=== PATIENT | male | born 1940 | race Caucasian/White ===

== ENCOUNTER 2016-06-10 11:27 | Outpatient (CLI) | payer MEDICARE, BC, OTHER ==
[~2016-06-10 11:27] MED LIST: ACETAMINOPHEN TAB 650MG DOSE (2X325MG) PO SCH; diphenhydrAMINE 25 MG CAP PO SCH
[2016-06-10] MEDS ORDERED: HYZA50TA2 PO (12:21)
[2016-06-10] MEDS ORDERED: GLUC1CAP10 PO (12:21)
[2016-06-10] MEDS ORDERED: MULT1TAB18 PO (12:21)
[2016-06-10] MEDS ORDERED: POTA540T PO (12:21)
[2016-06-10] MEDS ORDERED: SIMV40TA2 PO (12:21)
== END 2016-06-10 18:44 ==
LOC: M OPCLIPED 11:27 → M OPCLI4PR 11:27 → M PED 11:29 → M OPCLI4PR 18:44
PROVIDERS: ATTEND Internal Medicine Medical Oncology
DX: D46.21 Refractory anemia with excess of blasts 1 (principal)
CPT/HCPCS: 36430; 86850; 86900; 86901; 86920; P9016

== ENCOUNTER → 2016-06-27 | Outpatient (REF) | payer MEDICARE, OTHER ==
[~2016-06-27] MED LIST changes: -ACETAMINOPHEN TAB 650MG DOSE (2X325MG) PO SCH; +GLUC1CAP10 PO; +HYZA50TA2 PO; +MULT1TAB18 PO; +POTA540T PO; +SIMV40TA2 PO; -diphenhydrAMINE 25 MG CAP PO SCH
[2016-06-28 10:22] LABS: ERYTHROPOIETIN 181.6 mIU/mL (2.6-18.5)
== END ==
LOC: M LAB REF 12:57
PROVIDERS: ATTEND Internal Medicine Medical Oncology
DX: D46.9 Myelodysplastic syndrome, unspecified (principal)

== ENCOUNTER → 2016-07-11 | Outpatient (REF) | payer MEDICARE, OTHER | LOC: M LAB REF 11:27 | PROVIDERS: ATTEND Internal Medicine Medical Oncology | DX: D46.9 Myelodysplastic syndrome, unspecified (principal) | CPT/HCPCS: 86850; 86920; G0463 ==

== ENCOUNTER 2016-07-13 11:29 | Outpatient (CLI) | payer MEDICARE, BC, OTHER ==
[~2016-07-13] VITALS: Ht 152.4 cm; Wt 87.5 kg
[~2016-07-13 11:29] MED LIST changes: +ACETAMINOPHEN TAB 650MG DOSE (2X325MG) PO SCH; +diphenhydrAMINE 25 MG CAP PO SCH
== END 2016-07-13 16:30 | disposition home or self-care (01) ==
LOC: M INFU 11:29
PROVIDERS: ATTEND Internal Medicine Medical Oncology
DX: D46.9 Myelodysplastic syndrome, unspecified (principal)
CPT/HCPCS: 36430; P9016

== ENCOUNTER → 2016-07-18 | Outpatient (REF) | payer MEDICARE, OTHER ==
[~2016-07-18] MED LIST changes: -ACETAMINOPHEN TAB 650MG DOSE (2X325MG) PO SCH; -diphenhydrAMINE 25 MG CAP PO SCH
[2016-07-18 13:27] LABS: INR 1.09
[2016-07-18 13:29] LABS: EOS % 0.5 % (0.0-3.0); LARGE UNSTAINED CELL # 0.1 K/mm3 (0.0-0.4); LARGE UNSTAINED CELL % 5.9 % (0.0-4.0); LYMPH # 1.3 K/mm3 (1.5-4.5); LYMPH % 48.8 % (24.0-44.0); MEAN CORPUSCULAR HEMOGLOBIN 32.4 pg (27.0-33.0); MEAN CORPUSCULAR HGB CONC 32.7 g/dl (32.0-36.5); MEAN CORPUSCULAR VOLUME 99.2 fl (80.0-96.0); MONO # 0.1 K/mm3 (0.0-0.8); MONO % 3.7 % (0.0-5.0); NEUTROPHILS % 41.1 % (36.0-66.0); RED CELL DISTRIBUTION WIDTH 16.6 % (11.5-14.5); WHITE BLOOD COUNT 2.3 K/mm3 (4.0-10.0)
[2016-07-18 13:44] LABS: ALBUMIN 3.8 GM/DL (3.2-5.2); ALBUMIN/GLOBULIN RATIO 1.27 (1.00-1.93); ALKALINE PHOSPHATASE 62 U/L (45-117); ALT/SGPT 26 U/L (12-78); ANION GAP 11 MEQ/L (8-16); AST/SGOT 18 U/L (15-37); BILIRUBIN,TOTAL 0.8 MG/DL (0.2-1.0); BLOOD UREA NITROGEN 24 MG/DL (7-18); CALCIUM LEVEL 8.6 MG/DL (8.8-10.2); CARBON DIOXIDE LEVEL 27 MEQ/L (21-32); CHLORIDE LEVEL 101 MEQ/L (98-107); CHOLESTEROL LEVEL 96 MG/DL (<200); CREATININE FOR GFR 1.16 MG/DL (0.70-1.30); FREE T4 1.09 NG/DL (0.76-1.46); GLOMERULAR FILTRATION RATE > 60.0 (>42); GLUCOSE, FASTING 96 MG/DL (83-110); POTASSIUM SERUM 3.3 MEQ/L (3.5-5.1); SODIUM LEVEL 139 MEQ/L (136-145); TOTAL PROTEIN 6.8 GM/DL (6.4-8.2); TRIGLYCERIDES LEVEL 51 MG/DL (<150)
[2016-07-18 13:55] LABS: PLATELET COUNT, AUTOMATED 57 k/mm3 (150-450)
[2016-07-18 16:48] LABS: VITAMIN B12 LEVEL > 2000 PG/ML (247-911)
[2016-07-20 14:13] LABS: HEPATITIS C QUANTITATION HCV Not Detected IU/mL (.)
== END ==
LOC: M SFHCPLAZ 09:08
PROVIDERS: ATTEND Physician Assistant Medical
DX: I10 Essential (primary) hypertension (principal); E78.5 Hyperlipidemia, unspecified; Z20.5 Contact with and (suspected) exposure to viral hepatitis; N40.1 Benign prostatic hyperplasia with lower urinary tract symptoms; R31.29 Other microscopic hematuria; G62.9 Polyneuropathy, unspecified
CPT/HCPCS: 36415; 80053; 80061; 81001; 82607; 84439; 84443; 85025; 85610; 85730; 87522; G0103

== ENCOUNTER → 2016-08-02 | Outpatient (REF) | payer MEDICARE, OTHER ==
[2016-08-02 11:07] LABS: ANION GAP 9 MEQ/L (8-16); BLOOD UREA NITROGEN 23 MG/DL (7-18); CARBON DIOXIDE LEVEL 28 MEQ/L (21-32); CHLORIDE LEVEL 102 MEQ/L (98-107); GLOMERULAR FILTRATION RATE > 60.0 (>42); GLUCOSE, FASTING 106 MG/DL (83-110); POTASSIUM SERUM 3.7 MEQ/L (3.5-5.1); SODIUM LEVEL 139 MEQ/L (136-145)
== END ==
LOC: M SFHCPLAZ 08:58
PROVIDERS: ATTEND Physician Assistant Medical
DX: E87.6 Hypokalemia (principal)
CPT/HCPCS: 36415; 80048; G0463

== ENCOUNTER → 2016-08-08 | Outpatient (REF) | payer MEDICARE, BC, OTHER | LOC: M LAB REF 12:00 | PROVIDERS: ATTEND Internal Medicine Medical Oncology | DX: D46.9 Myelodysplastic syndrome, unspecified (principal) ==

== ENCOUNTER 2016-08-09 10:12 | Outpatient (CLI) | payer MEDICARE, BC, OTHER ==
[~2016-08-09] VITALS: Ht 182.9 cm; Wt 87.5 kg
[~2016-08-09 10:12] MED LIST changes: +ACETAMINOPHEN TAB 650MG DOSE (2X325MG) PO SCH; +diphenhydrAMINE 25 MG CAP PO SCH
== END 2016-08-09 15:05 | disposition home or self-care (01) ==
LOC: M INFU 10:12
PROVIDERS: ATTEND Internal Medicine Medical Oncology
DX: D46.9 Myelodysplastic syndrome, unspecified (principal)
CPT/HCPCS: 36430; P9016

== ENCOUNTER → 2016-08-15 | Outpatient (REF) | payer MEDICARE, OTHER ==
[~2016-08-15] MED LIST changes: -ACETAMINOPHEN TAB 650MG DOSE (2X325MG) PO SCH; -diphenhydrAMINE 25 MG CAP PO SCH
== END ==
LOC: M LAB REF 13:10
PROVIDERS: ATTEND Internal Medicine Medical Oncology
DX: D64.9 Anemia, unspecified (principal)

== ENCOUNTER 2016-08-16 07:51 | Outpatient (CLI) | payer MEDICARE, BC, OTHER ==
[~2016-08-16 07:51] MED LIST changes: +ACETAMINOPHEN TAB 650MG DOSE (2X325MG) PO SCH; +diphenhydrAMINE 25 MG CAP PO SCH
== END 2016-08-16 10:45 | disposition home or self-care (01) ==
LOC: M INFU 07:51
PROVIDERS: ATTEND Internal Medicine Medical Oncology
DX: D64.9 Anemia, unspecified (principal)
CPT/HCPCS: 36430; P9016

== ENCOUNTER → 2016-08-29 | Outpatient (REF) | payer MEDICARE, BC, OTHER ==
[~2016-08-29] MED LIST changes: -ACETAMINOPHEN TAB 650MG DOSE (2X325MG) PO SCH; -diphenhydrAMINE 25 MG CAP PO SCH
== END ==
LOC: M LAB REF 12:26
PROVIDERS: ATTEND Internal Medicine Medical Oncology
DX: D64.9 Anemia, unspecified (principal)

== ENCOUNTER 2016-08-30 08:14 | Outpatient (CLI) | payer MEDICARE, BC, OTHER ==
[~2016-08-30] VITALS: Ht 182.9 cm; Wt 87.5 kg
[2016-08-30] MEDS ORDERED: ACETAMINOPHEN TAB 650MG DOSE (2X325MG) PO ONE (08:30)
[2016-08-30] MEDS ORDERED: diphenhydrAMINE 25 MG CAP PO ONE (08:30)
== END 2016-08-30 13:30 | disposition home or self-care (01) ==
LOC: M INFU 08:14
PROVIDERS: ATTEND Internal Medicine Medical Oncology
DX: D64.9 Anemia, unspecified (principal)
CPT/HCPCS: 36430; P9016

== ENCOUNTER 2016-09-14 12:54 | Outpatient (CLI) | payer MEDICARE, BC, OTHER ==
[~2016-09-14] VITALS: Ht 180.3 cm; Wt 191.7 kg
[2016-09-14 13:00] VITALS: BP 146/72
[2016-09-14] MEDS ORDERED: ACETAMINOPHEN TAB 650MG DOSE (2X325MG) PO ONE (14:00)
[2016-09-14] MEDS ORDERED: diphenhydrAMINE 25 MG CAP PO ONE (14:00)
[2016-09-14 20:10] VITALS: BP 106/61
== END 2016-09-14 20:34 | disposition home or self-care (01) ==
LOC: M OPCLI4PR 12:54 → M MSPAV 12:59 → M OPCLI4PR 20:34
PROVIDERS: ATTEND Internal Medicine Medical Oncology
DX: D64.9 Anemia, unspecified (principal)
CPT/HCPCS: 36430; 86850; 86900; 86901; 86920; P9016

== ENCOUNTER → 2016-09-26 | Outpatient (REF) | payer MEDICARE, BC, OTHER | LOC: M LAB REF 14:33 | PROVIDERS: ATTEND Internal Medicine Medical Oncology | DX: D64.9 Anemia, unspecified (principal) ==

== ENCOUNTER 2016-09-27 11:14 | Outpatient (CLI) | payer MEDICARE, BC, OTHER ==
[~2016-09-27 11:14] MED LIST changes: +ACETAMINOPHEN TAB 650MG DOSE (2X325MG) PO SCH; +diphenhydrAMINE 25 MG CAP PO SCH
== END 2016-09-27 15:40 | disposition home or self-care (01) ==
LOC: M INFU 11:14
PROVIDERS: ATTEND Internal Medicine Medical Oncology
DX: D64.9 Anemia, unspecified (principal)
CPT/HCPCS: 36430; P9016

== ENCOUNTER 2016-10-11 10:18 | Outpatient (CLI) | payer MEDICARE, BC, OTHER ==
[~2016-10-11] VITALS: Ht 154.9 cm; Wt 87.5 kg
[2016-10-11] MEDS ORDERED: FUROSEMIDE 20 MG/2 ML VIAL (J1940) IV SCH (10:45)
[2016-10-11] MEDS ORDERED: ACETAMINOPHEN TAB 650MG DOSE (2X325MG) PO ONE (10:45)
[2016-10-11] MEDS ORDERED: diphenhydrAMINE 50 MG CAP PO ONE (10:45)
== END 2016-10-11 16:15 | disposition home or self-care (01) ==
LOC: M INFU 10:18
PROVIDERS: ATTEND Internal Medicine Medical Oncology
DX: D46.9 Myelodysplastic syndrome, unspecified (principal)
CPT/HCPCS: 36430; 82728; 83550; 86850; 86900; 86901; 86920; P9016

== ENCOUNTER → 2016-10-11 | Outpatient (REF) | payer MEDICARE, OTHER ==
[~2016-10-11] MED LIST changes: -ACETAMINOPHEN TAB 650MG DOSE (2X325MG) PO SCH; -diphenhydrAMINE 25 MG CAP PO SCH
[2016-10-11 13:28] LABS: PERCENT SATURATION 39.7 % (19.7-37.4)
== END ==
LOC: M LAB REF 12:24
PROVIDERS: ATTEND Internal Medicine Medical Oncology
DX: D46.9 Myelodysplastic syndrome, unspecified (principal)

== ENCOUNTER 2016-10-12 08:40 | Outpatient (CLI) | payer MEDICARE, BC, OTHER ==
[~2016-10-12] VITALS: Ht 182.9 cm; Wt 87.5 kg
[~2016-10-12 08:40] MED LIST changes: +ACETAMINOPHEN TAB 650MG DOSE (2X325MG) PO ONE; +FUROSEMIDE 20 MG/2 ML VIAL (J1940) IV ONE; +diphenhydrAMINE 50 MG CAP PO ONE
== END 2016-10-12 11:15 | disposition home or self-care (01) ==
LOC: M INFU 08:40
PROVIDERS: ATTEND Internal Medicine Medical Oncology
DX: D46.9 Myelodysplastic syndrome, unspecified (principal)
CPT/HCPCS: 36430; P9016

== ENCOUNTER 2016-10-18 11:09 | Outpatient (CLI) | payer MEDICARE, BC, OTHER ==
[~2016-10-18] VITALS: Ht 182.9 cm; Wt 87.5 kg
[~2016-10-18 11:09] MED LIST changes: -ACETAMINOPHEN TAB 650MG DOSE (2X325MG) PO ONE; -FUROSEMIDE 20 MG/2 ML VIAL (J1940) IV ONE; -diphenhydrAMINE 50 MG CAP PO ONE
[2016-10-18] MEDS ORDERED: ACETAMINOPHEN TAB 650MG DOSE (2X325MG) PO ONE (11:30)
[2016-10-18] MEDS ORDERED: diphenhydrAMINE 25 MG CAP PO ONE (11:30)
== END 2016-10-18 17:00 | disposition home or self-care (01) ==
LOC: M INFU 11:09
PROVIDERS: ATTEND Internal Medicine Medical Oncology
DX: D64.9 Anemia, unspecified (principal)
CPT/HCPCS: 36430; 86850; 86900; 86901; 86920; P9016; P9034

== ENCOUNTER 2016-10-25 09:48 | Outpatient (CLI) | payer MEDICARE, BC, OTHER ==
[2016-10-25] MEDS ORDERED: diphenhydrAMINE 25 MG CAP PO ONE ×2 (10:15→17:15)
[2016-10-25] MEDS ORDERED: FUROSEMIDE 20 MG/2 ML VIAL (J1940) IV ONE (10:15)
[2016-10-25] MEDS ORDERED: ACETAMINOPHEN TAB 650MG DOSE (2X325MG) PO ONE (10:15)
== END 2016-10-25 18:10 | disposition home or self-care (01) ==
LOC: M INFU 09:48
PROVIDERS: ATTEND Internal Medicine Medical Oncology
DX: D64.9 Anemia, unspecified (principal)
CPT/HCPCS: 36430; 86850; 86900; 86901; 86920; 96375; J1940; P9016; P9034

== ENCOUNTER 2016-10-26 08:22 | Outpatient (CLI) | payer MEDICARE, BC, OTHER ==
[2016-10-26] MEDS ORDERED: diphenhydrAMINE 25 MG CAP PO ONE ×2 (08:45→11:00)
[2016-10-26] MEDS ORDERED: ACETAMINOPHEN TAB 650MG DOSE (2X325MG) PO ONE (08:45)
[2016-10-26] MEDS ORDERED: FUROSEMIDE 20 MG/2 ML VIAL (J1940) IV ONE (10:00)
== END 2016-10-26 11:15 | disposition home or self-care (01) ==
LOC: M INFU 08:22
PROVIDERS: ATTEND Internal Medicine Medical Oncology
DX: D64.9 Anemia, unspecified (principal)
CPT/HCPCS: 36430; P9034

== ENCOUNTER 2016-11-02 10:21 | Outpatient (CLI) | payer MEDICARE, BC, OTHER ==
[~2016-11-02] VITALS: Ht 182.9 cm; Wt 87.5 kg
[2016-11-02] MEDS ORDERED: diphenhydrAMINE 25 MG CAP PO ONE (10:30)
[2016-11-02] MEDS ORDERED: ACETAMINOPHEN TAB 650MG DOSE (2X325MG) PO ONE (10:30)
== END 2016-11-02 18:10 | disposition home or self-care (01) ==
LOC: M INFU 10:21
PROVIDERS: ATTEND Internal Medicine Medical Oncology
DX: D46.9 Myelodysplastic syndrome, unspecified (principal)
CPT/HCPCS: 36430; P9034

== ENCOUNTER 2016-11-04 10:00 | Outpatient (CLI) | payer MEDICARE, BC, OTHER ==
[~2016-11-04] VITALS: Ht 182.9 cm; Wt 87.5 kg
[~2016-11-04 10:00] MED LIST changes: +ACETAMINOPHEN TAB 650MG DOSE (2X325MG) PO SCH; +diphenhydrAMINE 25 MG CAP PO SCH
== END 2016-11-04 15:45 | disposition home or self-care (01) ==
LOC: M INFU 10:00
PROVIDERS: ATTEND Internal Medicine Medical Oncology
DX: D46.9 Myelodysplastic syndrome, unspecified (principal)
CPT/HCPCS: 36430; 84443; 86850; 86900; 86901; 86920; P9016

== ENCOUNTER → 2016-11-04 | Outpatient (REF) | payer MEDICARE, OTHER | LOC: M LAB REF 12:47 | PROVIDERS: ATTEND Internal Medicine Medical Oncology | DX: D46.9 Myelodysplastic syndrome, unspecified (principal) ==

== ENCOUNTER 2016-11-11 10:50 | Outpatient (CLI) | payer MEDICARE, BC, OTHER ==
[~2016-11-11] VITALS: Ht 182.9 cm; Wt 87.5 kg
== END 2016-11-11 17:30 | disposition home or self-care (01) ==
LOC: M INFU 10:50
PROVIDERS: ATTEND Internal Medicine Medical Oncology
DX: D46.9 Myelodysplastic syndrome, unspecified (principal)
CPT/HCPCS: 36430; 86850; 86900; 86901; 86920; P9016; P9036

== ENCOUNTER 2016-11-21 09:22 | Outpatient (CLI) | payer MEDICARE, BC, OTHER ==
[2016-11-21] MEDS ORDERED: diphenhydrAMINE 25 MG CAP PO ONE (16:30)
== END 2016-11-21 17:15 | disposition home or self-care (01) ==
LOC: M INFU 09:22
PROVIDERS: ATTEND Internal Medicine Medical Oncology
DX: D46.9 Myelodysplastic syndrome, unspecified (principal)
CPT/HCPCS: 36415; 36430; 86850; 86880; 86900; 86901; 86920; P9016; P9034

== ENCOUNTER 2016-11-22 09:53 | Outpatient (CLI) | payer MEDICARE, BC, OTHER | END 2016-11-22 12:45 | disposition home or self-care (01) | LOC: M INFU 09:53 | PROVIDERS: ATTEND Internal Medicine Medical Oncology | DX: D46.9 Myelodysplastic syndrome, unspecified (principal); Z87.891 Personal history of nicotine dependence; Z79.899 Other long term (current) drug therapy | CPT/HCPCS: 36430; P9034 ==

== ENCOUNTER 2016-11-25 10:21 | Outpatient (CLI) | payer MEDICARE, BC, OTHER ==
[~2016-11-25 10:21] MED LIST changes: +ACETAMINOPHEN TAB 650MG DOSE (2X325MG) PO SCH; -BENA25CA4 PO; -EXJA500T PO; -JADE1TAB2 PO; -POTA10TAB PO; -PRED20TA PO; -VITMTA PO; +diphenhydrAMINE 25 MG CAP PO SCH
[2016-11-25] MEDS ORDERED: diphenhydrAMINE INJ 50MG/ML VIAL (J1200) IV ONE (15:15)
== END 2016-11-25 17:55 | disposition home or self-care (01) ==
LOC: M INFU 10:21
PROVIDERS: ATTEND Internal Medicine Medical Oncology
DX: D64.9 Anemia, unspecified (principal); Z87.891 Personal history of nicotine dependence; Z79.899 Other long term (current) drug therapy
CPT/HCPCS: 36430; 84443; J1200; P9034

== ENCOUNTER → 2016-11-25 | Outpatient (REF) | payer MEDICARE, OTHER ==
[~2016-11-25] MED LIST changes: -ACETAMINOPHEN TAB 650MG DOSE (2X325MG) PO SCH; +BENA25CA4 PO; +EXJA500T PO; +JADE1TAB2 PO; +POTA10TAB PO; +PRED20TA PO; +VITMTA PO; -diphenhydrAMINE 25 MG CAP PO SCH
== END ==
LOC: M LAB REF 13:21
PROVIDERS: ATTEND Internal Medicine Medical Oncology
DX: D64.9 Anemia, unspecified (principal)

== ENCOUNTER 2016-12-01 09:43 | Outpatient (CLI) | payer MEDICARE, BC, OTHER ==
[~2016-12-01] VITALS: Ht 182.9 cm; Wt 87.5 kg
== END 2016-12-01 15:15 | disposition home or self-care (01) ==
LOC: M INFU 09:43
PROVIDERS: ATTEND Internal Medicine Medical Oncology
DX: D64.9 Anemia, unspecified (principal); D46.9 Myelodysplastic syndrome, unspecified; Z87.891 Personal history of nicotine dependence; Z79.899 Other long term (current) drug therapy
CPT/HCPCS: 36430; 86850; 86900; 86901; 86920; P9016

== ENCOUNTER 2016-12-08 10:08 | Outpatient (CLI) | payer MEDICARE, BC, OTHER ==
[~2016-12-08] VITALS: Ht 182.9 cm; Wt 87.5 kg
[~2016-12-08 10:08] MED LIST changes: +ACETAMINOPHEN TAB 650MG DOSE (2X325MG) PO SCH; -BENA25CA4 PO; -EXJA500T PO; -JADE1TAB2 PO; -POTA10TAB PO; -PRED20TA PO; -VITMTA PO; +diphenhydrAMINE 25 MG CAP PO SCH
[2016-12-08] MEDS ORDERED: dexameTHASONE 20 MG/5 ML VIAL (J1100) IV ONE (10:15)
[2016-12-08] MEDS ORDERED: diphenhydrAMINE INJ 50MG/ML VIAL (J1200) IV ONE (10:30)
[2016-12-08] MEDS ORDERED: diphenhydrAMINE 25 MG CAP PO ONE (15:30)
== END 2016-12-08 18:00 | disposition home or self-care (01) ==
LOC: M INFU 10:08
PROVIDERS: ATTEND Internal Medicine Medical Oncology
DX: D64.9 Anemia, unspecified (principal); Z87.891 Personal history of nicotine dependence; Z79.899 Other long term (current) drug therapy
CPT/HCPCS: 36430; 82728; 83550; 86850; 86900; 86901; 86920; J1100; J1200; P9016; P9036

== ENCOUNTER → 2016-12-08 | Outpatient (REF) | payer MEDICARE, OTHER ==
[~2016-12-08] MED LIST changes: -ACETAMINOPHEN TAB 650MG DOSE (2X325MG) PO SCH; +BENA25CA4 PO; +EXJA500T PO; +JADE1TAB2 PO; +POTA10TAB PO; +PRED20TA PO; +VITMTA PO; -diphenhydrAMINE 25 MG CAP PO SCH
[2016-12-08 14:49] LABS: PERCENT SATURATION 104.1 % (19.7-37.4)
== END ==
LOC: M LAB REF 13:14
PROVIDERS: ATTEND Internal Medicine Medical Oncology
DX: D64.9 Anemia, unspecified (principal)

== ENCOUNTER 2016-12-09 07:54 | Outpatient (CLI) | payer MEDICARE, BC, OTHER ==
[~2016-12-09 07:54] MED LIST changes: -diphenhydrAMINE 25 MG CAP PO SCH
[2016-12-09] MEDS ORDERED: dexameTHASONE 20 MG/5 ML VIAL (J1100) IV ONE (08:00)
[2016-12-09] MEDS ORDERED: diphenhydrAMINE INJ 50MG/ML VIAL (J1200) IV SCH (08:00)
== END 2016-12-09 11:15 | disposition home or self-care (01) ==
LOC: M INFU 07:54
PROVIDERS: ATTEND Internal Medicine Medical Oncology
DX: D64.9 Anemia, unspecified (principal); Z87.891 Personal history of nicotine dependence; Z79.899 Other long term (current) drug therapy
CPT/HCPCS: 36430; J1200; P9036

== ENCOUNTER 2016-12-15 10:08 | Outpatient (CLI) | payer MEDICARE, BC, OTHER ==
[~2016-12-15] VITALS: Ht 182.9 cm; Wt 87.5 kg
[2016-12-15] MEDS ORDERED: FAMOTIDINE IV BAG 20 MG in APPROPRIATE DILUENT 1 EA IV ONE (11:00)
[2016-12-15] MEDS ORDERED: dexameTHASONE 20 MG/5 ML VIAL (J1100) IV ONE (11:00)
[2016-12-15] MEDS: diphenhydrAMINE 25 MG CAP PO SCH ×2 (11:48→15:48)
[2016-12-15] MEDS ORDERED: diphenhydrAMINE 50 MG CAP PO ONE (16:00)
== END 2016-12-15 16:50 | disposition home or self-care (01) ==
LOC: M INFU 10:08
PROVIDERS: ATTEND Internal Medicine Medical Oncology
DX: D46.9 Myelodysplastic syndrome, unspecified (principal); Z87.891 Personal history of nicotine dependence; Z79.899 Other long term (current) drug therapy
CPT/HCPCS: 36430; 86850; 86900; 86901; 86920; J1100; P9016; P9036

== ENCOUNTER 2016-12-16 10:22 | Outpatient (CLI) | payer MEDICARE, BC, OTHER ==
[~2016-12-16 10:22] MED LIST changes: -ACETAMINOPHEN TAB 650MG DOSE (2X325MG) PO SCH; +diphenhydrAMINE 50 MG CAP PO ONE
[2016-12-16] MEDS ORDERED: FAMOTIDINE INJ 20MG/2ML VIAL (S0028) IV ONE (10:30)
[2016-12-16] MEDS ORDERED: ACETAMINOPHEN TAB 650MG DOSE (2X325MG) PO ONE (10:30)
[2016-12-16] MEDS ORDERED: dexameTHASONE 20 MG/5 ML VIAL (J1100) IV ONE (10:30)
== END 2016-12-16 14:45 | disposition home or self-care (01) ==
LOC: M INFU 10:22
PROVIDERS: ATTEND Internal Medicine Medical Oncology
DX: D46.9 Myelodysplastic syndrome, unspecified (principal); Z87.891 Personal history of nicotine dependence; Z79.899 Other long term (current) drug therapy
CPT/HCPCS: 36430; J1100; P9016; P9036

== ENCOUNTER 2016-12-21 10:24 | Outpatient (CLI) | payer MEDICARE, BC, OTHER ==
[~2016-12-21] VITALS: Ht 182.9 cm; Wt 87.5 kg
[~2016-12-21 10:24] MED LIST changes: +ACETAMINOPHEN TAB 650MG DOSE (2X325MG) PO SCH; +diphenhydrAMINE 25 MG CAP PO SCH; -diphenhydrAMINE 50 MG CAP PO ONE
== END 2016-12-21 16:45 | disposition home or self-care (01) ==
LOC: M INFU 10:24
PROVIDERS: ATTEND Internal Medicine Medical Oncology
DX: D46.9 Myelodysplastic syndrome, unspecified (principal); Z87.891 Personal history of nicotine dependence; Z79.899 Other long term (current) drug therapy
CPT/HCPCS: 36430; 86850; 86900; 86901; 86920; P9016; P9034

== ENCOUNTER 2016-12-29 10:45 | Outpatient (CLI) | payer MEDICARE, BC, OTHER ==
[~2016-12-29] VITALS: Ht 182.9 cm; Wt 87.5 kg
[~2016-12-29 10:45] MED LIST changes: +ACETAMINOPHEN TAB 650MG DOSE (2X325MG) PO SCH; -BENA25CA4 PO; -EXJA500T PO; -JADE1TAB2 PO; -POTA10TAB PO; -PRED20TA PO; -VITMTA PO; +dexameTHASONE 20 MG/5 ML VIAL (J1100) IV ONE; +diphenhydrAMINE 25 MG CAP PO SCH
== END 2016-12-29 15:30 | disposition home or self-care (01) ==
LOC: M INFU 10:45
PROVIDERS: ATTEND Internal Medicine Medical Oncology
DX: D46.9 Myelodysplastic syndrome, unspecified (principal); Z79.899 Other long term (current) drug therapy
CPT/HCPCS: 36430; 86850; 86900; 86901; 86920; J1100; P9016; P9036

== ENCOUNTER → 2016-12-29 | Outpatient (REF) | payer MEDICARE, BC ==
[~2016-12-29] MED LIST changes: -ACETAMINOPHEN TAB 650MG DOSE (2X325MG) PO SCH; +BENA25CA4 PO; +EXJA500T PO; +JADE1TAB2 PO; +POTA10TAB PO; +PRED20TA PO; +VITMTA PO; -diphenhydrAMINE 25 MG CAP PO SCH
== END ==
LOC: M LAB REF 09:47
PROVIDERS: ATTEND Internal Medicine Medical Oncology
DX: D46.9 Myelodysplastic syndrome, unspecified (principal)

== ENCOUNTER 2016-12-30 06:29 | Outpatient (CLI) | payer MEDICARE, BC, OTHER ==
[~2016-12-30 06:29] MED LIST changes: -ACETAMINOPHEN TAB 650MG DOSE (2X325MG) PO SCH; -diphenhydrAMINE 25 MG CAP PO SCH
[2016-12-30] MEDS ORDERED: diphenhydrAMINE 25 MG CAP PO SCH (07:00)
[2016-12-30] MEDS ORDERED: ACETAMINOPHEN TAB 650MG DOSE (2X325MG) PO SCH (07:01)
== END 2016-12-30 11:00 | disposition home or self-care (01) ==
LOC: M INFU 06:29
PROVIDERS: ATTEND Internal Medicine Medical Oncology
DX: D46.9 Myelodysplastic syndrome, unspecified (principal); Z87.891 Personal history of nicotine dependence; Z79.899 Other long term (current) drug therapy
CPT/HCPCS: 36430; J1100; P9016; P9034

== ENCOUNTER 2017-01-05 09:44 | Outpatient (CLI) | payer MEDICARE, BC, OTHER ==
[~2017-01-05 09:44] MED LIST changes: +ACETAMINOPHEN TAB 650MG DOSE (2X325MG) PO SCH; -dexameTHASONE 20 MG/5 ML VIAL (J1100) IV ONE; +diphenhydrAMINE 25 MG CAP PO SCH
[2017-01-05] MEDS ORDERED: dexameTHASONE 20 MG/5 ML VIAL (J1100) IV ONE (10:00)
[2017-01-05] MEDS ORDERED: BENA25CA4 PO (16:10)
[2017-01-06] MEDS ORDERED: EXJA500T PO (08:04)
== END 2017-01-05 15:15 | disposition home or self-care (01) ==
LOC: M INFU 09:44
PROVIDERS: ATTEND Internal Medicine Medical Oncology
DX: D64.9 Anemia, unspecified (principal); Z87.891 Personal history of nicotine dependence; Z79.899 Other long term (current) drug therapy
CPT/HCPCS: 36430; 86850; 86900; 86901; 86920; J1100; P9016; P9036

== ENCOUNTER 2017-01-06 06:51 | Outpatient (CLI) | payer MEDICARE, BC, OTHER ==
[~2017-01-06] VITALS: Ht 182.9 cm; Wt 87.5 kg
[~2017-01-06 06:51] MED LIST changes: -ACETAMINOPHEN TAB 650MG DOSE (2X325MG) PO SCH; +BENA25CA4 PO; -diphenhydrAMINE 25 MG CAP PO SCH
[2017-01-06] MEDS ORDERED: diphenhydrAMINE 25 MG CAP PO SCH (07:00)
[2017-01-06] MEDS ORDERED: ACETAMINOPHEN TAB 650MG DOSE (2X325MG) PO SCH (07:01)
[2017-01-06] MEDS ORDERED: dexameTHASONE 20 MG/5 ML VIAL (J1100) IV ONE (07:15)
[2017-01-06] MEDS ORDERED: EXJA500T PO (08:04)
== END 2017-01-06 11:50 | disposition home or self-care (01) ==
LOC: M INFU 06:51
PROVIDERS: ATTEND Internal Medicine Medical Oncology
DX: D46.9 Myelodysplastic syndrome, unspecified (principal); Z87.891 Personal history of nicotine dependence; Z79.899 Other long term (current) drug therapy
CPT/HCPCS: 36430; J1100; P9016; P9034

== ENCOUNTER 2017-01-12 08:51 | Outpatient (CLI) | payer MEDICARE, BC, OTHER ==
[~2017-01-12] VITALS: Ht 182.9 cm; Wt 87.5 kg
[~2017-01-12 08:51] MED LIST changes: +ACETAMINOPHEN TAB 650MG DOSE (2X325MG) PO SCH; +EXJA500T PO; +diphenhydrAMINE 25 MG CAP PO SCH
[2017-01-12] MEDS ORDERED: dexameTHASONE 20 MG/5 ML VIAL (J1100) IV ONE (09:00)
== END 2017-01-12 13:40 | disposition home or self-care (01) ==
LOC: M INFU 08:51
PROVIDERS: ATTEND Internal Medicine Medical Oncology
DX: D64.9 Anemia, unspecified (principal); Z79.899 Other long term (current) drug therapy
CPT/HCPCS: 36430; 86850; 86900; 86901; 86920; J1100; P9016; P9036

== ENCOUNTER 2017-01-13 08:24 | Outpatient (CLI) | payer MEDICARE, BC, OTHER ==
[2017-01-13] MEDS ORDERED: dexameTHASONE 20 MG/5 ML VIAL (J1100) IV ONE (09:00)
== END 2017-01-13 14:35 | disposition home or self-care (01) ==
LOC: M INFU 08:24
PROVIDERS: ATTEND Internal Medicine Medical Oncology
DX: D46.9 Myelodysplastic syndrome, unspecified (principal); Z79.899 Other long term (current) drug therapy
CPT/HCPCS: 36430; J1100; P9016; P9034

== ENCOUNTER 2017-01-16 19:01 | Inpatient (IN) | payer MEDICARE, BC, OTHER ==
[~2017-01-16] VITALS: Ht 177.8 cm; Wt 81.7 kg
[~2017-01-16 19:01] MED LIST changes: -ACETAMINOPHEN TAB 650MG DOSE (2X325MG) PO SCH; -diphenhydrAMINE 25 MG CAP PO SCH
[2017-01-16] MEDS ORDERED: JADE1TAB2 PO (19:16)
[2017-01-16] MEDS ORDERED: methylPREDNISolone INJ 125 MG/2 ML VIAL (J2930) IV ONE (20:15)
[2017-01-16] MEDS ORDERED: FAMOTIDINE IV BAG 20 MG in APPROPRIATE DILUENT 1 EA IV ONE (20:15)
[2017-01-16] MEDS ORDERED: diphenhydrAMINE INJ 50MG/ML VIAL (J1200) IV ONE (20:15)
[2017-01-16 20:29] LABS: ADD MANUAL DIFFER YES; DIFF SLIDE NUMBER 207; MEAN CORPUSCULAR HEMOGLOBIN 30.7 pg (27.0-33.0); MEAN CORPUSCULAR HGB CONC 34.4 g/dl (32.0-36.5); MEAN CORPUSCULAR VOLUME 89.3 fl (80.0-96.0); RED CELL DISTRIBUTION WIDTH 14.2 % (11.5-14.5); WHITE BLOOD COUNT 22.6 K/mm3 (4.0-10.0)
[2017-01-16 20:31] LABS: ANION GAP 7 MEQ/L (8-16); BLOOD UREA NITROGEN 20 MG/DL (7-18); CALCIUM LEVEL 9.1 MG/DL (8.8-10.2); CARBON DIOXIDE LEVEL 28 MEQ/L (21-32); CHLORIDE LEVEL 102 MEQ/L (98-107); CREATININE FOR GFR 1.19 MG/DL (0.70-1.30); GLOMERULAR FILTRATION RATE > 60.0 (>42); GLUCOSE, FASTING 96 MG/DL (83-110); POTASSIUM SERUM 3.7 MEQ/L (3.5-5.1); SODIUM LEVEL 137 MEQ/L (136-145)
[2017-01-16 20:48] LABS: PLATELET COUNT, AUTOMATED 25 k/mm3 (150-450)
[2017-01-16 20:50] LABS: ALBUMIN 3.5 GM/DL (3.2-5.2); ALBUMIN/GLOBULIN RATIO 0.9 (1.00-1.93); BILIRUBIN,DIRECT 0.2 MG/DL (0.0-0.2); BILIRUBIN,TOTAL 0.5 MG/DL (0.2-1.0); TOTAL PROTEIN 7.4 GM/DL (6.4-8.2)
[2017-01-16 20:53] LABS: SCHISTOCYTES 1+
[2017-01-16 20:54] LABS: ERYTHROCYTE SEDIMENTATION RATE 61 mm/hr (0-20)
[2017-01-16] MEDS ORDERED: ACETAMINOPHEN 325 MG TAB PO ONE (22:30)
[2017-01-16] MEDS ORDERED: POTA10TAB PO (23:15)
[2017-01-16] MEDS ORDERED: VITMTA PO (23:15)
[2017-01-17] VITALS (7 sets, daily range): BP systolic 122–148; BP diastolic 61–72; PULSE 72–74
[2017-01-17 01:10] LABS: REASON FOR REVIEW OTHER
--- NOTE | 2017-01-17 01:16 | HPEPDOC ---
General Date of Admission January 17, 2017 Primary Care Physician: Teresita Delgadillo Attending Physician: ALEX RASMUSSEN MD Chief Complaint The patient is a 76-year-old male admitted with a reason for visit of Allergic Reaction. History of Present Illness Patient is a 78-year-old male with past medical history significant for kidney stones, hypertension, dyslipidemia and myelodysplastic syndrome presents to the emergency room with swollen lips and a rash. Cell started last nights in the middle of night. Patient woke up and noticed his lip was swollen. He also noticed that some of his face was swollen. Feels that his throat had a tight feeling. Still able to breathe and denies shortness of breath. This is one patient also noticed a rash on his chest. He and his are staying at a [facility]. Patient woke up his at approximately 3 AM. Took 2 Benadryl. Decided not to go to the ER at that point. During the day the rash and lip swelling did not improve. They decided to go home since nothing was improving. Patient took another dose of Benadryl. Patient thought it might have been his T-shirt since the rash mainly covered his chest abdomen and back. Denies any new detergents or soaps. No lower extremity swelling. Patient denies any allergies except for yellow jackets. Admits to having needed epinephrine in the past. Denies any shortness of breath in the emergency room. States that sometimes after receiving platelet transfusions she experiences hives. Patient receives a unit of platelets and unit of blood every and Monday for the past few months. Patient has this for myelodysplastic syndrome. Patient notices if he gets certain blood types she does not experience this reaction. Did not have this after her last and Monday. New medication patient has received is Keytruda infusions. Patient receives these every 3 weeks. Has had a total of 3 infusions. Next infusion is due this Monday. Patient sees Dr. Gutierres for treatment of his mild dysplastic syndrome. Upon arrival to the ER, patient had chest radiograph and labs done. Chest radiograph showed no acute process. Patient was given methylprednisolone, benedryl and famotidine. Home Medications Scheduled Glucosamine Chondroitin (Glucosamine Chondroitin) 1 Cap Cap, 1 CAP PO BID, ( Reported) Multivitamins *[facility] STOCKED* (Thera M Plus *[facility] STOCKED*) 1 Tab Tab, 1 TAB PO DAILY, (Reported) Potassium Citrate (Potassium Citrate 10MEQ (Urocit-K)) 1,080 Mg Tab, 2,160 MG PO BID, (Reported) 1080MG = 10MEQ Prednisone (Prednisone) 20 Mg Tab, 20 MG PO DAILY Simvastatin - High Dose (Simvastatin) 40 Mg Tab, 40 MG PO QHS, (Reported) Scheduled PRN Diphenhydramine HCl (Benadryl Allergy) 25 Mg Cap, 50 MG PO Q4H PRN for HIVES, ( Reported) Allergies Coded Allergies: No Known Allergies (Unverified , 06/10/16) Past Medical History Medical History Myelodysplastic syndrome History of kidney stones Hypertension Dyslipidemia Surgical History 2 inguinal hernia repairs, bilaterally Right foot repair when he was 13 years old Cataracts both eyes Family History Significant Family History: No pertinent family hx Social History * Smoker: Denies Denies cigarette smoking. Admits to drinking alcohol almost daily. Drinks 3-4 ounces of liquor for 3-4 beers. Says he drinks "too much ". Denies having any cats or dogs. Denies sick contacts. Denies recent travel. Admits to travel outside the [facility] long time ago to [place]. Up-to-date on immunizations. Review of Symptoms Other systems General: No chills or sweats. Positive for generalized weakness. Head: No headache or head injuries. Eyes: No vision changes, blurry vision, double vision. Throat: Positive for tight throat. Denies difficulty swallowing or painful swallowing. Nose: Denies congestion or rhinorrhea. Ears: Denies changes in hearing. Cardiovascular: Denies chest pain or palpitations. Respiratory: Denies shortness of breath, cough Neuro: Denies changes in sensation. Psych: Normal affect. Abdomen: Denies diarrhea, constipation, nausea and vomiting. Admits to some bloating and indigestion reflux. : Denies dysuria, frequency Extremity: Denies focal weakness. Physical Examination General Exam: Positive: Alert, Cooperative, No Acute Distress Eye Exam: Positive: PERRLA, EOMI, Other Eye Symptoms (no swollen eyelids.), Negative: Ptosis ENT Exam: Positive: Atraumatic, Mucous membr. moist/pink, Pharynx Normal, Tongue Midline, Nares Patent, Other ENT (lips mildly swollen. No bleeding gums. No petechiae. ), Negative: Pharyngeal Edema Neck Exam: Positive: Supple, Negative: JVD, thyromegaly Chest Exam: Positive: Clear to auscultation, Normal air movement, Negative: Rales, Rhonchi, Wheezing Heart Exam: Positive: Rate Normal, Normal S1, Normal S2, Negative: Murmurs, Rubs Abdomen Exam: Positive: Normal bowel sounds, Soft, Tenderness, Negative: Hepatospenomegaly Extremity Exam: Positive: Normal pulses, Negative: Clubbing, Cyanosis, Edema Skin Exam: Positive: Nl turgor and temperature, Other skin issue (No petechia.) , Negative: Rash, Breakdown Neuro Exam: Positive: Normal Gait, Normal Speech Psych Exam: Positive: Mental status NL, Mood NL Vital Signs Vital Signs Date Time Temp Pulse Resp B/P (MAP) Pulse Ox O2 Delivery O2 Flow Rate FiO2 01/17/17 00:27 88 127/65 (85) 94 01/16/17 22:21 101.6 18 Room Air Laboratory Data Labs 24H Laboratory Tests 2 01/16/17 19:17: Neutrophils 75, Lymphocytes (Manual) 5L, Metamyelocytes 3H, Myelocytes 14H, Promyelocytes 2H, Atypical Lymphocytes 1, Platelet Estimate MARKED DECREASE, Red Blood Cell Morphology , Schistocytes 1+, Erythrocyte Sedimentation Rate 61H , Anion Gap 7L, Glomerular Filtration Rate > 60.0, Blood Urea Nitrogen 20H, Creatinine 1.19, Sodium Level 137, Potassium Level 3.7, Chloride Level 102, Carbon Dioxide Level 28, Calcium Level 9.1, Aspartate Amino Transf (AST/SGOT) 30 , Alanine Aminotransferase (ALT/SGPT) 59, Alkaline Phosphatase 74, Total Bilirubin 0.5, Direct Bilirubin 0.2, Total Protein 7.4, Albumin 3.5, Albumin/ Globulin Ratio 0.90L 01/16/17 22:55: Urine Appearance CLEAR, Urine Color YELLOW, Urine pH 7.0, Urine Specific [place] 1.015, Urine Protein NEGATIVE, Urine Glucose (UA) NEGATIVE, Urine Ketones NEGATIVE, Urine Urobilinogen 0.2, Urine Bilirubin NEGATIVE, Urine Leukocyte Esterase NEGATIVE, Urine Blood NEGATIVE, Urine Nitrite NEGATIVE, Urine WBC (Auto) 0, Urine RBC (Auto) 2, Urine Hyaline Casts (Auto) 0, Urine Bacteria (Auto) NEGATIVE, Urine Squamous Epithelial Cells 0, Urine Sperm (Auto) 01/17/17 00:25: CBC/BMP Laboratory Tests 01/16/17 19:17 Red Blood Count 3.07 L, Mean Corpuscular Volume 89.3, Mean Corpuscular Hemoglobin 30.7, Mean Corpuscular Hemoglobin Concent 34.4, Red Cell Distribution Width 14.2, Calcium Level 9.1 Microbiology Microbiology 01/16/17 Urine Culture, Received Pending Assessment/Plan 1. Allergic reaction/ Angioedema Patient appears to have a allergic reaction secondary to repeated transfusions. Patient will be admitted to PCU to be monitored for respiratory changes. For symptomatically control, treating patient with Solu-Medrol 80 IV every 8, famotidine 20 twice a day, Benadryl 50 every 8. Patient denies any changes in soaps or detergents. Patient denies any other new medications other than Keytruda, last time received 2 weeks ago. Only allergy patient reports is to yellow jackets. 2. Leukocytosis/fever Patient has a temperature of 101.6 and an elevated white blood cell count. Patient does not have any symptoms of his source of infection. Chest x-ray was negative. Urinalysis did not show any signs of infection. Urine culture and blood cultures are pending. Not starting any antibiotics at this time. We'll start antibiotics if cultures are positive and treat infection. 3.Thrombocytopenia Patient's last documented platelet count was 11. Today it is 25. We'll be repeating in the morning. Patient does not have any petechiae or signs of bleeding. Patient did admit to having one time bleeding gums this morning. No active bleeding at this time. He did note that he usually has blood blisters and bleeding gums as well as a bleeding nose with low platelets. Not have at this time. Mild dysplastic syndrome 4.Hypertension Holding patient's blood pressure medication this time. We'll start if needed. 5.Dyslipidemia Continuing patient's home medication for this at this time. Plan / VTE VTE Prophylaxis Ordered?: Yes (Earyl ambulation.) GME ATTESTATION GME ATTESTATION My preceptor for this patient encounter was physically present in the building during the encounter and was fully available. As needed, all aspects of the patient interview, examination, medical decision making process, and medical care plan development were reviewed and approved by the preceptor. Preceptor is aware and concurs with the plan as stated in the body of this note and will attest to such by his/her cosignature. ATTENDING NOTE I, Alex Rasmussen, have both independently examined this patient as well as reviewed the documentation. I have discussed in detail with the resident the findings and plan of treatment as documented in the residents documentation. I will continue to follow the patient and offer further guidance to the patients care as necessary during this hospital stay. ALINA LANDRY DO Jan 17, 2017 01:11 ALEX RASMUSSEN MD Jan 30, 2017 15:53
[2017-01-17] MEDS: methylPREDNISolone INJ 125 MG/2 ML VIAL (J2930) IV SCH ×3 (04:19→23:11)
[2017-01-17] MEDS: SIMVASTATIN 40 MG TAB PO SCH ×2 (04:19→23:11)
[2017-01-17 06:56] LABS: ADD MANUAL DIFFER YES; DIFF SLIDE NUMBER 146; MEAN CORPUSCULAR HEMOGLOBIN 30.2 pg (27.0-33.0); RED CELL DISTRIBUTION WIDTH 14.3 % (11.5-14.5); WHITE BLOOD COUNT 20.4 K/mm3 (4.0-10.0)
[2017-01-17 07:09] LABS: ALBUMIN/GLOBULIN RATIO 0.91 (1.00-1.93); ALKALINE PHOSPHATASE 64 U/L (45-117); ALT/SGPT 53 U/L (12-78); ANION GAP 11 MEQ/L (8-16); AST/SGOT 26 U/L (15-37); BILIRUBIN,TOTAL 0.5 MG/DL (0.2-1.0); BLOOD UREA NITROGEN 20 MG/DL (7-18); CALCIUM LEVEL 8.2 MG/DL (8.8-10.2); CARBON DIOXIDE LEVEL 24 MEQ/L (21-32); CHLORIDE LEVEL 104 MEQ/L (98-107); CREATININE FOR GFR 1.01 MG/DL (0.70-1.30); GLOMERULAR FILTRATION RATE > 60.0 (>42); GLUCOSE, FASTING 165 MG/DL (83-110); POTASSIUM SERUM 4.1 MEQ/L (3.5-5.1); SODIUM LEVEL 139 MEQ/L (136-145); TOTAL PROTEIN 6.3 GM/DL (6.4-8.2)
[2017-01-17 07:21] LABS: PLATELET COUNT, AUTOMATED 17 k/mm3 (150-450)
[2017-01-17 07:27] LABS: BLAST CELLS 2 % (0-0); EOSINOPHILS 1 % (0-5); NUCLEATED RED BLOOD CELL 2 % (0-0)
--- NOTE | 2017-01-17 08:00 | REP ---
Clinical: Dyspnea and cough. Technique: PA and lateral. Comparison: None. Findings: Mediastinum and cardiac silhouette are within normal limits. Lung barker demonstrate chronic-appearing interstitial changes with scattered scarring. No focal consolidation. Lateral view cannot exclude trace left lower lobe atelectasis. No effusion. No pneumothorax. Skeletal structures intact. Impression: Chronic-appearing changes. Cannot exclude left lower lobe atelectasis. Signed by Jovi Jaime MD 01/17/2017 07:52 A
[2017-01-17] MEDS: FAMOTIDINE/NS 20 MG/50 ML BAG (S0028) IV SCH ×2 (08:54→23:50)
[2017-01-17] MEDS: MULTIVITAMINS/MINERALS THERAP 1 TAB PO SCH (08:54)
[2017-01-17] MEDS: POTASSIUM CITRATE 1080 MG (10MEQ) TAB PO SCH ×2 (08:55→23:11)
[2017-01-17] MEDS ORDERED: FAMOTIDINE 20 MG TAB PO SCH (09:00)
[2017-01-17] MEDS: diphenhydrAMINE 50 MG CAP PO PRN (22:10)
[2017-01-18] VITALS: BP 132/63
[2017-01-18 04:00] VITALS: BP 127/68
[2017-01-18] MEDS: methylPREDNISolone INJ 125 MG/2 ML VIAL (J2930) IV SCH (05:01)
[2017-01-18 08:00] VITALS: BP 128/59
[2017-01-18 08:08] LABS: ADD MANUAL DIFFER YES; DIFF SLIDE NUMBER 87; MEAN CORPUSCULAR HEMOGLOBIN 30.6 pg (27.0-33.0); MEAN CORPUSCULAR HGB CONC 34.4 g/dl (32.0-36.5); RED CELL DISTRIBUTION WIDTH 14.2 % (11.5-14.5); WHITE BLOOD COUNT 26.6 K/mm3 (4.0-10.0)
[2017-01-18 08:34] LABS: ALBUMIN 2.9 GM/DL (3.2-5.2); ALBUMIN/GLOBULIN RATIO 0.91 (1.00-1.93); ALKALINE PHOSPHATASE 61 U/L (45-117); ALT/SGPT 68 U/L (12-78); ANION GAP 11 MEQ/L (8-16); AST/SGOT 35 U/L (15-37); BILIRUBIN,TOTAL 0.4 MG/DL (0.2-1.0); BLOOD UREA NITROGEN 26 MG/DL (7-18); CALCIUM LEVEL 8.7 MG/DL (8.8-10.2); CARBON DIOXIDE LEVEL 25 MEQ/L (21-32); CHLORIDE LEVEL 104 MEQ/L (98-107); CREATININE FOR GFR 0.98 MG/DL (0.70-1.30); GLOMERULAR FILTRATION RATE > 60.0 (>42); GLUCOSE, FASTING 141 MG/DL (83-110); MAGNESIUM LEVEL 2.2 MG/DL (1.8-2.4); POTASSIUM SERUM 4.3 MEQ/L (3.5-5.1); SODIUM LEVEL 140 MEQ/L (136-145); TOTAL PROTEIN 6.1 GM/DL (6.4-8.2)
[2017-01-18 08:54] LABS: ANISOCYTOSIS 2+; BLAST CELLS 2 % (0-0); MICROCYTOSIS 1+; NUCLEATED RED BLOOD CELL 1 % (0-0); SMUDGE CELLS 1+
[2017-01-18 08:59] LABS: PLATELET COUNT, AUTOMATED 10 k/mm3 (150-450)
[2017-01-18] MEDS: diphenhydrAMINE 50 MG CAP PO PRN (09:23)
[2017-01-18] MEDS: FAMOTIDINE/NS 20 MG/50 ML BAG (S0028) IV SCH (09:23)
[2017-01-18] MEDS: POTASSIUM CITRATE 1080 MG (10MEQ) TAB PO SCH (09:23)
[2017-01-18] MEDS: MULTIVITAMINS/MINERALS THERAP 1 TAB PO SCH (09:23)
[2017-01-18] MEDS ORDERED: PRED20TA PO (09:49)
[2017-01-18] MEDS ORDERED: FAMOTIDINE IV BAG 20 MG in APPROPRIATE DILUENT 1 EA IV SCH (21:00)
--- NOTE | 2017-01-18 21:36 | DSES ---
DATE OF ADMISSION: 01/17/2017 DATE OF DISCHARGE: 01/18/2017 DISCHARGE DIAGNOSIS: Angioedema. SECONDARY DIAGNOSES: 1. Allergic reaction, drug rash. 2. Maculopapular rash. 3. Myelodysplastic syndrome. 4. Dyslipidemia. 5. Hypertension. HOSPITAL COURSE: The patient is a 76-year-old man who was recently started on Jadenu (deferasirox) for iron overload. He is transfusion dependent. He follows with Dr. Gutierres with hematology clinic. Patient has chronically been on Hyzaar with an angiotensin receptor hebert (ARB) in it for many years. The patient normally develops hives after platelet transfusions. His last platelet transfusion was on Monday, and following that he did have some developmental of hives, which resolved with Benadryl, as they usually do; however, then Monday he began to develop swelling of his lips as well as a rash fairly diffusely over his body, prompting him to return to the emergency room. His Jadenu and Hyzaar were both held. He was provided with intravenous (IV) Solu-Medrol, Benadryl, and IV Pepcid. Patient was admitted for greater than 24 hours and observed very closely with prompt resolution of his angioedema and improvement in his maculopapular rash. SUBJECTIVE: The patient reports he feels well today and would like to go home and has no complaints. Maximum temperature 100.2, fever curve down-trending from the previous day, where his maximum temperature was 101.6. Heart rate 55, respiratory rate 20, blood pressure (BP) 128/59, oxygen saturation 97% on room air. GENERAL: He is a very pleasant, elderly man lying flat in bed. He is accompanied by his . The patient is in no acute distress. HEENT: Cranial nerves II-XII are grossly intact. He has mucous membranes. No elevation in central venous pressure (CVP). CARDIOVASCULAR: S1, S2, regular. He is not bradycardic on exam. RESPIRATORY: Clear. Thorax and abdominal exam are relatively benign. He has a maculopapular rash, which is fairly diffuse, throughout his trunk previous days and involved his extremities and his palms; however, that has resolved. LABORATORY STUDIES: WBC 26.6, hemoglobin 8.2, hematocrit 23.8, platelet count 10. Chemistry panel: Sodium 140, potassium 4.3, chloride 104, bicarbonate 25, BUN 26, creatinine 0.9, lactic acid 1.5. Liver function tests within normal limits. He does have a urinalysis (UA), which is not abnormal. Blood cultures negative for 24 hours and urine culture which is negative. He also had a chest x-ray completed that revealed chronic-appearing changes. Could exclude left lower lobe atelectasis. ASSESSMENT AND PLAN: This is a 76-year-old man with an adverse drug reaction. 1. Adverse drug reaction. This is likely the etiology for his angioedema and maculopapular rash. I feel that it is less likely related to products that were transfused on Monday. For the time being, we will hold Jadenu and Hyzaar. His blood pressure is adequately controlled. He has followup with Dr. Gutierres regarding his iron overload and other options tomorrow. I did contact Dr. Gutierres and inform him of the plan that we are holding his medications to make him aware of the patient's change in his clinical status. Patient is due to have transfusions later this week. Will defer to Dr. Gutierres if he is to receive those, and if so, how much and what intensity. The patient will be discharged with prednisone 20 mg by mouth for the next 2 days. He has also been advised to use Benadryl as needed for pruritus. 2. Myelodysplastic syndrome. Cell lines were relatively at their baseline. Followup with Dr. Gutierres tomorrow. Continue with potassium citrate. 3. Dyslipidemia. Continue with simvastatin. DISPOSITION: The patient is being discharged home. He is independent with his ADLs. His clinical status is resolved. He is to followup with his primary care physician (PCP) within 7 days, followup with hematology tomorrow as scheduled. His activity and diet are as prior to admission. He is to return to the emergency room (ER) if his symptoms worsen. MEDICATIONS AT TIME OF DISCHARGE: - prednisone 20 mg daily for 2 days - Benadryl 50 mg every 4 hours as needed for hives - glucosamine chondroitin one capsule daily twice a day as per the patient - multivitamin one tablet daily - potassium citrate 10 mEq twice a day - simvastatin 40 mg at bedtime Greater than 30 minutes spent organizing disposition.
== END 2017-01-18 10:30 | disposition home or self-care (01) | DRG 916 ==
LOC: M ED 19:01 → M ED INP 01-17 00:57 → M PED 01-17 21:30
PROVIDERS: ADMIT Internal Medicine; ATTEND Internal Medicine
DX: T78.3XXA Angioneurotic edema, initial encounter (principal); I10 Essential (primary) hypertension; L27.0 Generalized skin eruption due to drugs and medicaments taken internally; T44.5X5A Adverse effect of predominantly beta-adrenoreceptor agonists, initial encounter; T45.8X5A Adverse effect of other primarily systemic and hematological agents, initial encounter; E78.5 Hyperlipidemia, unspecified; D46.9 Myelodysplastic syndrome, unspecified; Y84.8 Other medical procedures as the cause of abnormal reaction of the patient, or of later complication, without mention of misadventure at the time of the procedure; R50.9 Fever, unspecified; D72.829 Elevated white blood cell count, unspecified; D69.6 Thrombocytopenia, unspecified; Z87.442 Personal history of urinary calculi; Z79.899 Other long term (current) drug therapy; Z79.52 Long term (current) use of systemic steroids

== ENCOUNTER 2017-01-20 07:58 | Outpatient (CLI) | payer MEDICARE, BC, OTHER ==
[~2017-01-20 07:58] MED LIST changes: +JADE1TAB2 PO; +POTA10TAB PO; +PRED20TA PO; +VITMTA PO
[2017-01-20] MEDS ORDERED: ACETAMINOPHEN TAB 650MG DOSE (2X325MG) PO ONE (08:15)
[2017-01-20] MEDS ORDERED: diphenhydrAMINE 25 MG CAP PO ONE (08:15)
== END 2017-01-20 10:30 | disposition home or self-care (01) ==
LOC: M INFU 07:58
PROVIDERS: ATTEND Internal Medicine Medical Oncology
DX: D46.9 Myelodysplastic syndrome, unspecified (principal); E78.00 Pure hypercholesterolemia, unspecified; Z87.442 Personal history of urinary calculi; Z87.891 Personal history of nicotine dependence; Z79.899 Other long term (current) drug therapy
CPT/HCPCS: 36430; P9034

== ENCOUNTER 2017-01-23 10:52 | Outpatient (CLI) | payer MEDICARE, BC, OTHER ==
[~2017-01-23] VITALS: Ht 182.9 cm; Wt 87.5 kg
[~2017-01-23 10:52] MED LIST changes: +ACETAMINOPHEN TAB 650MG DOSE (2X325MG) PO SCH; +diphenhydrAMINE 25 MG CAP PO SCH
== END 2017-01-23 16:35 ==
LOC: M INFU 10:52
PROVIDERS: ATTEND Internal Medicine Medical Oncology
DX: D46.9 Myelodysplastic syndrome, unspecified (principal); Z79.899 Other long term (current) drug therapy; Z79.52 Long term (current) use of systemic steroids
CPT/HCPCS: 36430; 86850; 86900; 86901; 86920; P9016; P9034

== ENCOUNTER → 2017-01-23 | Outpatient (REF) | payer MEDICARE, BC, OTHER | LOC: M LAB REF 10:00 | PROVIDERS: ATTEND Internal Medicine Medical Oncology | DX: D46.9 Myelodysplastic syndrome, unspecified (principal) ==

== ENCOUNTER 2017-01-24 06:53 | Outpatient (CLI) | payer MEDICARE, BC, OTHER ==
[~2017-01-24 06:53] MED LIST changes: -ACETAMINOPHEN TAB 650MG DOSE (2X325MG) PO SCH; -diphenhydrAMINE 25 MG CAP PO SCH
[2017-01-24] MEDS ORDERED: diphenhydrAMINE 25 MG CAP PO SCH (07:00)
[2017-01-24] MEDS ORDERED: ACETAMINOPHEN TAB 650MG DOSE (2X325MG) PO SCH (07:01)
[2017-01-24] MEDS ORDERED: dexameTHASONE 20 MG/5 ML VIAL (J1100) IV ONE (09:00)
== END 2017-01-24 11:35 | disposition home or self-care (01) ==
LOC: M INFU 06:53
PROVIDERS: ATTEND Internal Medicine Medical Oncology
DX: D46.9 Myelodysplastic syndrome, unspecified (principal); Z87.891 Personal history of nicotine dependence; Z79.899 Other long term (current) drug therapy
CPT/HCPCS: 36430; J1100; P9016; P9034

== ENCOUNTER 2017-02-02 10:39 | Outpatient (CLI) | payer MEDICARE, BC, OTHER ==
[~2017-02-02] VITALS: Ht 182.9 cm; Wt 87.5 kg
[~2017-02-02 10:39] MED LIST changes: +ACETAMINOPHEN TAB 650MG DOSE (2X325MG) PO SCH; +diphenhydrAMINE 25 MG CAP PO SCH
== END 2017-02-02 16:05 | disposition home or self-care (01) ==
LOC: M INFU 10:39
PROVIDERS: ATTEND Internal Medicine Medical Oncology
DX: D64.9 Anemia, unspecified (principal); D46.9 Myelodysplastic syndrome, unspecified; E87.6 Hypokalemia; I10 Essential (primary) hypertension; E78.00 Pure hypercholesterolemia, unspecified; R20.2 Paresthesia of skin; Z87.442 Personal history of urinary calculi; Z87.891 Personal history of nicotine dependence; Z79.899 Other long term (current) drug therapy
CPT/HCPCS: 36430; 80048; 86850; 86900; 86901; 86920; P9016; P9036

== ENCOUNTER → 2017-02-02 | Outpatient (REF) | payer MEDICARE, BC, OTHER | LOC: M LAB REF 11:03 | PROVIDERS: ATTEND Internal Medicine Medical Oncology | DX: D64.9 Anemia, unspecified (principal); Z53.9 Procedure and treatment not carried out, unspecified reason ==

== ENCOUNTER → 2017-02-02 | Outpatient (REF) | payer MEDICARE, BC, OTHER ==
[2017-02-02 13:57] LABS: ANION GAP 9 MEQ/L (8-16); BLOOD UREA NITROGEN 27 MG/DL (7-18); CALCIUM LEVEL 9.3 MG/DL (8.8-10.2); CARBON DIOXIDE LEVEL 26 MEQ/L (21-32); CHLORIDE LEVEL 106 MEQ/L (98-107); CREATININE FOR GFR 0.96 MG/DL (0.70-1.30); GLOMERULAR FILTRATION RATE > 60.0 (>42); GLUCOSE, FASTING 107 MG/DL (83-110); POTASSIUM SERUM 3.8 MEQ/L (3.5-5.1); SODIUM LEVEL 141 MEQ/L (136-145)
== END ==
LOC: M SFHCPLAZ 09:39
PROVIDERS: ATTEND Physician Assistant Medical
DX: E87.6 Hypokalemia (principal)

== ENCOUNTER 2017-02-03 06:57 | Outpatient (CLI) | payer MEDICARE, BC, OTHER ==
[~2017-02-03] VITALS: Ht 182.9 cm; Wt 87.5 kg
[~2017-02-03 06:57] MED LIST changes: +ACETAMINOPHEN TAB 650MG DOSE (2X325MG) PO ONE; -ACETAMINOPHEN TAB 650MG DOSE (2X325MG) PO SCH; +diphenhydrAMINE 25 MG CAP PO ONE; -diphenhydrAMINE 25 MG CAP PO SCH
== END 2017-02-03 12:15 | disposition home or self-care (01) ==
LOC: M INFU 06:57
PROVIDERS: ATTEND Internal Medicine Medical Oncology
DX: D64.9 Anemia, unspecified (principal); D46.9 Myelodysplastic syndrome, unspecified; E78.00 Pure hypercholesterolemia, unspecified; R20.2 Paresthesia of skin; Z87.442 Personal history of urinary calculi; Z87.891 Personal history of nicotine dependence; Z79.899 Other long term (current) drug therapy
CPT/HCPCS: 36430; P9016; P9034

== ENCOUNTER 2017-02-09 10:00 | Outpatient (CLI) | payer MEDICARE, BC, OTHER ==
[~2017-02-09] VITALS: Ht 182.9 cm; Wt 87.5 kg
[~2017-02-09 10:00] MED LIST changes: +ACETAMINOPHEN TAB 650MG DOSE (2X325MG) PO SCH; +diphenhydrAMINE 25 MG CAP PO SCH
== END 2017-02-09 14:50 | disposition home or self-care (01) ==
LOC: M INFU 10:00
PROVIDERS: ATTEND Internal Medicine Medical Oncology
DX: D46.9 Myelodysplastic syndrome, unspecified (principal); D64.9 Anemia, unspecified; Z79.899 Other long term (current) drug therapy; E78.00 Pure hypercholesterolemia, unspecified; R20.2 Paresthesia of skin; Z87.442 Personal history of urinary calculi
CPT/HCPCS: 36430; 86850; 86920; P9016; P9034

== ENCOUNTER → 2017-02-09 | Outpatient (REF) | payer MEDICARE, BC, OTHER ==
[~2017-02-09] MED LIST changes: -ACETAMINOPHEN TAB 650MG DOSE (2X325MG) PO ONE; -diphenhydrAMINE 25 MG CAP PO ONE
== END ==
LOC: M LAB REF 09:17
PROVIDERS: ATTEND Internal Medicine Medical Oncology
DX: D46.9 Myelodysplastic syndrome, unspecified (principal); D64.9 Anemia, unspecified; Z53.9 Procedure and treatment not carried out, unspecified reason

== ENCOUNTER 2017-02-10 06:59 | Outpatient (CLI) | payer MEDICARE, BC, OTHER ==
[~2017-02-10] VITALS: Ht 182.9 cm; Wt 82.5 kg
[~2017-02-10 06:59] MED LIST changes: -ACETAMINOPHEN TAB 650MG DOSE (2X325MG) PO SCH; -diphenhydrAMINE 25 MG CAP PO SCH
[2017-02-10] MEDS ORDERED: diphenhydrAMINE 25 MG CAP PO SCH (07:00)
[2017-02-10] MEDS ORDERED: ACETAMINOPHEN TAB 650MG DOSE (2X325MG) PO SCH (07:01)
== END 2017-02-10 11:10 | disposition home or self-care (01) ==
LOC: M INFU 06:59
PROVIDERS: ATTEND Internal Medicine Medical Oncology
DX: D46.9 Myelodysplastic syndrome, unspecified (principal); D64.9 Anemia, unspecified; Z79.899 Other long term (current) drug therapy; E78.00 Pure hypercholesterolemia, unspecified; R20.2 Paresthesia of skin; Z87.442 Personal history of urinary calculi
CPT/HCPCS: 36430; P9016; P9034

== ENCOUNTER 2017-02-16 09:01 | Outpatient (CLI) | payer MEDICARE, BC, OTHER ==
[~2017-02-16] VITALS: Ht 182.9 cm; Wt 87.5 kg
[~2017-02-16 09:01] MED LIST changes: +ACETAMINOPHEN TAB 650MG DOSE (2X325MG) PO SCH; +diphenhydrAMINE 25 MG CAP PO SCH
== END 2017-02-16 15:30 | disposition home or self-care (01) ==
LOC: M INFU 09:01
PROVIDERS: ATTEND Internal Medicine Medical Oncology
DX: D46.9 Myelodysplastic syndrome, unspecified (principal); D64.9 Anemia, unspecified; Z96.1 Presence of intraocular lens; Z87.891 Personal history of nicotine dependence; Z88.8 Allergy status to other drugs, medicaments and biological substances; Z79.899 Other long term (current) drug therapy
CPT/HCPCS: 36430; 86850; 86920; P9016; P9036

== ENCOUNTER → 2017-02-16 | Outpatient (REF) | payer MEDICARE, BC, OTHER | LOC: M LAB REF 09:14 | PROVIDERS: ATTEND Internal Medicine Medical Oncology | DX: D64.9 Anemia, unspecified (principal) ==

== ENCOUNTER 2017-02-17 06:56 | Outpatient (CLI) | payer MEDICARE, BC, OTHER ==
[~2017-02-17] VITALS: Ht 182.9 cm; Wt 87.5 kg
[~2017-02-17 06:56] MED LIST changes: -ACETAMINOPHEN TAB 650MG DOSE (2X325MG) PO SCH; -diphenhydrAMINE 25 MG CAP PO SCH
[2017-02-17] MEDS ORDERED: ACETAMINOPHEN TAB 650MG DOSE (2X325MG) PO ONE (07:00)
[2017-02-17] MEDS ORDERED: diphenhydrAMINE 25 MG CAP PO ONE (07:00)
== END 2017-02-17 11:30 | disposition home or self-care (01) ==
LOC: M INFU 06:56
PROVIDERS: ATTEND Internal Medicine Medical Oncology
DX: D46.9 Myelodysplastic syndrome, unspecified (principal); D64.9 Anemia, unspecified; Z87.891 Personal history of nicotine dependence; Z88.8 Allergy status to other drugs, medicaments and biological substances; Z79.899 Other long term (current) drug therapy
CPT/HCPCS: 36430; P9016; P9034

== ENCOUNTER 2017-02-23 10:30 | Outpatient (CLI) | payer MEDICARE, BC, OTHER ==
[~2017-02-23] VITALS: Ht 182.9 cm; Wt 87.5 kg
[2017-02-23] MEDS ORDERED: dexameTHASONE 20 MG/5 ML VIAL (J1100) IV ONE (10:45)
[2017-02-23] MEDS ORDERED: ACETAMINOPHEN TAB 650MG DOSE (2X325MG) PO ONE (10:45)
[2017-02-23] MEDS ORDERED: diphenhydrAMINE 25 MG CAP PO ONE (10:45)
== END 2017-02-23 11:00 | disposition home or self-care (01) ==
LOC: M INFU 10:30
PROVIDERS: ATTEND Internal Medicine Medical Oncology
DX: D64.9 Anemia, unspecified (principal); Z53.9 Procedure and treatment not carried out, unspecified reason

== ENCOUNTER 2017-02-24 09:12 | Outpatient (CLI) | payer MEDICARE, BC, OTHER ==
[2017-02-24] MEDS ORDERED: diphenhydrAMINE 25 MG CAP PO ONE (09:30)
[2017-02-24] MEDS ORDERED: ACETAMINOPHEN TAB 650MG DOSE (2X325MG) PO ONE (09:30)
[2017-02-24] MEDS ORDERED: dexameTHASONE 20 MG/5 ML VIAL (J1100) IV ONE (09:30)
== END 2017-02-24 14:20 | disposition home or self-care (01) ==
LOC: M INFU 09:12
PROVIDERS: ATTEND Internal Medicine Medical Oncology
DX: D64.9 Anemia, unspecified (principal); Z88.8 Allergy status to other drugs, medicaments and biological substances; Z96.1 Presence of intraocular lens; Z87.891 Personal history of nicotine dependence; Z79.899 Other long term (current) drug therapy
CPT/HCPCS: 36430; J1100; P9016; P9036

== ENCOUNTER 2017-02-27 06:41 | Outpatient (CLI) | payer MEDICARE, BC, OTHER ==
[2017-02-27] MEDS: dexameTHASONE 20 MG/5 ML VIAL (J1100) IV ONE (07:37)
[2017-02-27] MEDS: ACETAMINOPHEN TAB 650MG DOSE (2X325MG) PO SCH (07:37)
[2017-02-27] MEDS: diphenhydrAMINE 25 MG CAP PO SCH (07:37)
== END 2017-02-27 10:25 | disposition home or self-care (01) ==
LOC: M INFU 06:41
PROVIDERS: ATTEND Internal Medicine Medical Oncology
DX: D64.9 Anemia, unspecified (principal); Z96.1 Presence of intraocular lens; Z87.891 Personal history of nicotine dependence; Z88.8 Allergy status to other drugs, medicaments and biological substances; Z79.899 Other long term (current) drug therapy
CPT/HCPCS: 36415; 36430; 86850; 86900; 86901; 86920; J1100; P9016

== ENCOUNTER 2017-03-02 09:59 | Outpatient (CLI) | payer MEDICARE, BC, OTHER ==
[~2017-03-02] VITALS: Ht 182.9 cm; Wt 87.5 kg
[~2017-03-02 09:59] MED LIST changes: +ACETAMINOPHEN TAB 650MG DOSE (2X325MG) PO SCH; +diphenhydrAMINE 25 MG CAP PO SCH
[2017-03-02] MEDS ORDERED: dexameTHASONE 20 MG/5 ML VIAL (J1100) IV ONE (10:00)
== END 2017-03-02 16:20 | disposition home or self-care (01) ==
LOC: M INFU 09:59
PROVIDERS: ATTEND Internal Medicine Medical Oncology
DX: D64.9 Anemia, unspecified (principal); Z96.1 Presence of intraocular lens; Z88.8 Allergy status to other drugs, medicaments and biological substances; Z87.442 Personal history of urinary calculi; Z87.891 Personal history of nicotine dependence; Z79.899 Other long term (current) drug therapy
CPT/HCPCS: 36430; 86850; 86920; J1100; P9016; P9036

== ENCOUNTER 2017-03-09 11:30 | Outpatient (CLI) | payer MEDICARE, BC, OTHER ==
[~2017-03-09] VITALS: Ht 182.9 cm; Wt 87.5 kg
[2017-03-09] MEDS ORDERED: FAMOTIDINE IV BAG 20 MG in APPROPRIATE DILUENT 1 EA IV ONE (12:00)
[2017-03-09] MEDS ORDERED: dexameTHASONE 20 MG/5 ML VIAL (J1100) IV ONE (12:15)
[2017-03-09] MEDS ORDERED: diphenhydrAMINE 25 MG CAP PO PRN (12:15)
== END 2017-03-09 18:00 | disposition home or self-care (01) ==
LOC: M INFU 11:30
PROVIDERS: ATTEND Internal Medicine Medical Oncology
DX: D64.9 Anemia, unspecified (principal); D46.9 Myelodysplastic syndrome, unspecified; E78.00 Pure hypercholesterolemia, unspecified; Z79.899 Other long term (current) drug therapy; Z87.891 Personal history of nicotine dependence; Z87.442 Personal history of urinary calculi
CPT/HCPCS: 36430; 86850; 86900; 86901; 86920; 96365; 96367; J1100; P9016; P9036

== ENCOUNTER 2017-03-23 09:05 | Outpatient (CLI) | payer MEDICARE, BC, OTHER ==
[~2017-03-23 09:05] MED LIST changes: -ACETAMINOPHEN TAB 650MG DOSE (2X325MG) PO SCH; -diphenhydrAMINE 25 MG CAP PO SCH
[2017-03-23] MEDS ORDERED: ACETAMINOPHEN TAB 650MG DOSE (2X325MG) PO ONE (09:15)
[2017-03-23] MEDS ORDERED: diphenhydrAMINE 25 MG CAP PO ONE (09:15)
[2017-03-23] MEDS ORDERED: dexameTHASONE 4 MG/ML 1ML VIAL (J1100) IV ONE (09:30)
[2017-03-23] MEDS ORDERED: FAMOTIDINE INJ 20MG/2ML VIAL (S0028) IV ONE (09:30)
[2017-03-23] MEDS ORDERED: dexameTHASONE 20 MG/5 ML VIAL (J1100) IV ONE (09:30)
== END 2017-03-23 15:15 | disposition home or self-care (01) ==
LOC: M INFU 09:05
PROVIDERS: ATTEND Internal Medicine Medical Oncology
DX: D46.9 Myelodysplastic syndrome, unspecified (principal); D64.9 Anemia, unspecified; I10 Essential (primary) hypertension; E78.00 Pure hypercholesterolemia, unspecified; R20.2 Paresthesia of skin; Z79.899 Other long term (current) drug therapy; Z87.891 Personal history of nicotine dependence
CPT/HCPCS: 36430; 86850; 86900; 86901; 86920; J1100; P9016; P9034

== ENCOUNTER 2017-03-24 07:22 | Outpatient (CLI) | payer MEDICARE, BC, OTHER ==
[~2017-03-24] VITALS: Ht 182.9 cm; Wt 87.5 kg
[2017-03-24] MEDS ORDERED: dexameTHASONE 20 MG/5 ML VIAL (J1100) IV ONE (07:45)
[2017-03-24] MEDS ORDERED: ACETAMINOPHEN TAB 650MG DOSE (2X325MG) PO ONE (07:45)
[2017-03-24] MEDS ORDERED: diphenhydrAMINE 25 MG CAP PO ONE (07:45)
[2017-03-24] MEDS ORDERED: FAMOTIDINE IV BAG 20 MG in APPROPRIATE DILUENT 1 EA IV ONE (08:00)
== END 2017-03-24 12:45 | disposition home or self-care (01) ==
LOC: M INFU 07:22
PROVIDERS: ATTEND Internal Medicine Medical Oncology
DX: D46.9 Myelodysplastic syndrome, unspecified (principal); Z96.1 Presence of intraocular lens; Z87.442 Personal history of urinary calculi; Z87.891 Personal history of nicotine dependence; Z79.899 Other long term (current) drug therapy
CPT/HCPCS: 36430; 96365; 96375; J1100; P9016; P9034

== ENCOUNTER 2017-03-28 11:13 | Outpatient (CLI) | payer MEDICARE, BC, OTHER ==
[~2017-03-28] VITALS: Ht 182.9 cm; Wt 79.1 kg
[~2017-03-28 11:13] MED LIST changes: +ACETAMINOPHEN TAB 650MG DOSE (2X325MG) PO SCH; +diphenhydrAMINE 25 MG CAP PO SCH
[2017-03-28] MEDS ORDERED: FAMOTIDINE IV BAG 20 MG in APPROPRIATE DILUENT 1 EA IV ONE (12:00)
[2017-03-28] MEDS ORDERED: dexameTHASONE 20 MG/5 ML VIAL (J1100) IV ONE (12:00)
== END 2017-03-28 16:30 | disposition home or self-care (01) ==
LOC: M INFU 11:13
PROVIDERS: ATTEND Internal Medicine Medical Oncology
DX: D64.9 Anemia, unspecified (principal); Z88.8 Allergy status to other drugs, medicaments and biological substances; Z96.1 Presence of intraocular lens; Z87.442 Personal history of urinary calculi; Z87.891 Personal history of nicotine dependence
CPT/HCPCS: 36430; 96365; 96375; J1100; P9034

== ENCOUNTER 2017-03-30 09:11 | Outpatient (CLI) | payer MEDICARE, BC, OTHER ==
[~2017-03-30] VITALS: Ht 195.6 cm; Wt 87.5 kg
[2017-03-30] MEDS ORDERED: dexameTHASONE 20 MG/5 ML VIAL (J1100) IV ONE (09:30)
[2017-03-30] MEDS ORDERED: FAMOTIDINE IV BAG 20 MG in APPROPRIATE DILUENT 1 EA IV ONE (09:30)
[2017-03-31] MEDS ORDERED: FERR500T PO (09:22)
== END 2017-03-30 15:45 | disposition home or self-care (01) ==
LOC: M INFU 09:11
PROVIDERS: ATTEND Internal Medicine Medical Oncology
DX: D64.9 Anemia, unspecified (principal); D46.9 Myelodysplastic syndrome, unspecified; Z88.8 Allergy status to other drugs, medicaments and biological substances; Z96.1 Presence of intraocular lens; Z87.891 Personal history of nicotine dependence
CPT/HCPCS: 36430; 86850; 86900; 86901; 86920; J1100; P9016; P9036

== ENCOUNTER 2017-03-31 06:49 | Outpatient (CLI) | payer MEDICARE, BC, OTHER ==
[~2017-03-31] VITALS: Ht 182.9 cm; Wt 87.5 kg
[~2017-03-31 06:49] MED LIST changes: -ACETAMINOPHEN TAB 650MG DOSE (2X325MG) PO SCH; -diphenhydrAMINE 25 MG CAP PO SCH
[2017-03-31] MEDS ORDERED: dexameTHASONE 20 MG/5 ML VIAL (J1100) IV ONE (07:00)
[2017-03-31] MEDS ORDERED: FAMOTIDINE IV BAG 20 MG in APPROPRIATE DILUENT 1 EA IV ONE (07:00)
[2017-03-31] MEDS ORDERED: ACETAMINOPHEN TAB 650MG DOSE (2X325MG) PO ONE (07:45)
[2017-03-31] MEDS ORDERED: diphenhydrAMINE 25 MG CAP PO ONE ×2 (07:45→09:30)
[2017-03-31] MEDS ORDERED: FERR500T PO (09:22)
== END 2017-03-31 13:00 | disposition home or self-care (01) ==
LOC: M INFU 06:49
PROVIDERS: ATTEND Internal Medicine Medical Oncology
DX: D64.9 Anemia, unspecified (principal); Z88.8 Allergy status to other drugs, medicaments and biological substances; Z87.891 Personal history of nicotine dependence; Z79.899 Other long term (current) drug therapy
CPT/HCPCS: 36430; J1100; P9016; P9034

== ENCOUNTER 2017-04-04 09:21 | Outpatient (CLI) | payer MEDICARE, BC, OTHER ==
[~2017-04-04] VITALS: Ht 182.9 cm; Wt 87.5 kg
[~2017-04-04 09:21] MED LIST changes: +ACETAMINOPHEN TAB 650MG DOSE (2X325MG) PO SCH; +FERR500T PO; +diphenhydrAMINE 25 MG CAP PO SCH
[2017-04-04] MEDS ORDERED: dexameTHASONE 20 MG/5 ML VIAL (J1100) IV ONE (10:00)
[2017-04-04] MEDS ORDERED: FAMOTIDINE IV BAG 20 MG in APPROPRIATE DILUENT 1 EA IV ONE (10:00)
[2017-04-04] MEDS ORDERED: diphenhydrAMINE INJ 50MG/ML VIAL (J1200) IV ONE (14:00)
== END 2017-04-04 16:10 | disposition home or self-care (01) ==
LOC: M INFU 09:21
PROVIDERS: ATTEND Internal Medicine Medical Oncology
DX: D64.9 Anemia, unspecified (principal); D46.9 Myelodysplastic syndrome, unspecified; Z96.1 Presence of intraocular lens; Z87.891 Personal history of nicotine dependence; Z88.8 Allergy status to other drugs, medicaments and biological substances; Z79.899 Other long term (current) drug therapy
CPT/HCPCS: 36430; 86850; 86900; 86901; 86920; 96375; J1100; J1200; P9016; P9034

== ENCOUNTER 2017-04-05 06:54 | Outpatient (CLI) | payer MEDICARE, BC, OTHER ==
[~2017-04-05 06:54] MED LIST changes: -ACETAMINOPHEN TAB 650MG DOSE (2X325MG) PO SCH; +FAMOTIDINE IV BAG 20 MG in APPROPRIATE DILUENT 1 EA IV ONE; +dexameTHASONE 20 MG/5 ML VIAL (J1100) IV ONE; -diphenhydrAMINE 25 MG CAP PO SCH
[2017-04-05] MEDS ORDERED: diphenhydrAMINE 25 MG CAP PO SCH (07:00)
[2017-04-05] MEDS ORDERED: ACETAMINOPHEN TAB 650MG DOSE (2X325MG) PO SCH (07:01)
[2017-04-05] MEDS ORDERED: diphenhydrAMINE 25 MG CAP PO ONE (10:15)
== END 2017-04-05 12:00 | disposition home or self-care (01) ==
LOC: M INFU 06:54
PROVIDERS: ATTEND Internal Medicine Medical Oncology
DX: D64.9 Anemia, unspecified (principal); D46.9 Myelodysplastic syndrome, unspecified; Z96.1 Presence of intraocular lens; Z88.8 Allergy status to other drugs, medicaments and biological substances; Z87.891 Personal history of nicotine dependence; Z79.899 Other long term (current) drug therapy
CPT/HCPCS: 36430; J1100; P9016; P9034

== ENCOUNTER 2017-04-13 10:41 | Outpatient (CLI) | payer MEDICARE, BC, OTHER ==
[~2017-04-13 10:41] MED LIST changes: +ACETAMINOPHEN TAB 650MG DOSE (2X325MG) PO SCH; -FAMOTIDINE IV BAG 20 MG in APPROPRIATE DILUENT 1 EA IV ONE; -dexameTHASONE 20 MG/5 ML VIAL (J1100) IV ONE; +diphenhydrAMINE 25 MG CAP PO SCH
[2017-04-13] MEDS ORDERED: dexameTHASONE 20 MG/5 ML VIAL (J1100) IV ONE (10:45)
[2017-04-13] MEDS ORDERED: diphenhydrAMINE INJ 50MG/ML VIAL (J1200) IV PRN (11:00)
[2017-04-13] MEDS ORDERED: FAMOTIDINE IV BAG 20 MG in APPROPRIATE DILUENT 1 EA IV ONE (11:00)
[2017-04-13] MEDS ORDERED: diphenhydrAMINE INJ 50MG/ML VIAL (J1200) IV ONE (11:00)
== END 2017-04-13 16:15 | disposition home or self-care (01) ==
LOC: M INFU 10:41
PROVIDERS: ATTEND Internal Medicine Medical Oncology
DX: D64.9 Anemia, unspecified (principal); D46.9 Myelodysplastic syndrome, unspecified; Z96.1 Presence of intraocular lens; Z88.8 Allergy status to other drugs, medicaments and biological substances; Z87.442 Personal history of urinary calculi; Z87.891 Personal history of nicotine dependence; Z79.899 Other long term (current) drug therapy
CPT/HCPCS: 36430; 86850; 86920; J1100; P9016; P9036

== ENCOUNTER 2017-04-14 06:50 | Outpatient (CLI) | payer MEDICARE, BC, OTHER ==
[~2017-04-14] VITALS: Ht 182.9 cm; Wt 87.5 kg
[~2017-04-14 06:50] MED LIST changes: -ACETAMINOPHEN TAB 650MG DOSE (2X325MG) PO SCH; -diphenhydrAMINE 25 MG CAP PO SCH
[2017-04-14] MEDS ORDERED: diphenhydrAMINE 25 MG CAP PO SCH (07:00)
[2017-04-14] MEDS ORDERED: ACETAMINOPHEN TAB 650MG DOSE (2X325MG) PO SCH (07:01)
[2017-04-14] MEDS ORDERED: diphenhydrAMINE INJ 50MG/ML VIAL (J1200) IV PRN (07:15)
[2017-04-14] MEDS ORDERED: dexameTHASONE 20 MG/5 ML VIAL (J1100) IV ONE (07:15)
[2017-04-14] MEDS ORDERED: FAMOTIDINE IV BAG 20 MG in APPROPRIATE DILUENT 1 EA IV ONE (07:15)
== END 2017-04-14 12:35 | disposition home or self-care (01) ==
LOC: M INFU 06:50
PROVIDERS: ATTEND Internal Medicine Medical Oncology
DX: D64.9 Anemia, unspecified (principal); D46.9 Myelodysplastic syndrome, unspecified; Z96.1 Presence of intraocular lens; Z87.442 Personal history of urinary calculi; Z87.891 Personal history of nicotine dependence; Z88.8 Allergy status to other drugs, medicaments and biological substances; Z79.899 Other long term (current) drug therapy
CPT/HCPCS: 36430; J1100; P9016; P9034

== ENCOUNTER 2017-04-20 10:23 | Outpatient (CLI) | payer MEDICARE, BC, OTHER ==
[~2017-04-20 10:23] MED LIST changes: +ACETAMINOPHEN TAB 650MG DOSE (2X325MG) PO SCH; +FUROSEMIDE 20 MG/2 ML VIAL (J1940) IV ONE; +dexameTHASONE 20 MG/5 ML VIAL (J1100) IV ONE; +diphenhydrAMINE 25 MG CAP PO SCH
[2017-04-20] MEDS ORDERED: FAMOTIDINE IV BAG 20 MG in APPROPRIATE DILUENT 1 EA IV ONE (10:30)
== END 2017-04-20 15:50 | disposition home or self-care (01) ==
LOC: M INFU 10:23
PROVIDERS: ATTEND Internal Medicine Medical Oncology
DX: D64.9 Anemia, unspecified (principal); D46.9 Myelodysplastic syndrome, unspecified; Z96.1 Presence of intraocular lens; Z87.442 Personal history of urinary calculi; Z87.891 Personal history of nicotine dependence; Z92.21 Personal history of antineoplastic chemotherapy; Z88.8 Allergy status to other drugs, medicaments and biological substances; Z79.899 Other long term (current) drug therapy
CPT/HCPCS: 36430; 86850; 86900; 86901; 86920; 96375; J1100; J1940; P9016; P9036

== ENCOUNTER 2017-04-21 07:28 | Outpatient (CLI) | payer MEDICARE, BC, OTHER ==
[~2017-04-21] VITALS: Ht 182.9 cm; Wt 87.5 kg
[~2017-04-21 07:28] MED LIST changes: -FUROSEMIDE 20 MG/2 ML VIAL (J1940) IV ONE; -dexameTHASONE 20 MG/5 ML VIAL (J1100) IV ONE
[2017-04-21] MEDS ORDERED: dexameTHASONE 20 MG/5 ML VIAL (J1100) IV ONE (07:30)
[2017-04-21] MEDS ORDERED: FUROSEMIDE 20 MG/2 ML VIAL (J1940) IV ONE (07:30)
[2017-04-21] MEDS ORDERED: FAMOTIDINE/NS 20 MG/50 ML BAG (S0028) IV ONE (07:30)
== END 2017-04-21 13:25 | disposition home or self-care (01) ==
LOC: M INFU 07:28
PROVIDERS: ATTEND Internal Medicine Medical Oncology
DX: D64.9 Anemia, unspecified (principal); D46.9 Myelodysplastic syndrome, unspecified; Z96.1 Presence of intraocular lens; Z88.8 Allergy status to other drugs, medicaments and biological substances; Z87.442 Personal history of urinary calculi; Z87.891 Personal history of nicotine dependence; Z79.899 Other long term (current) drug therapy
CPT/HCPCS: 36430; J1100; J1940; P9016; P9034

== ENCOUNTER 2017-04-27 10:02 | Outpatient (CLI) | payer MEDICARE, BC, OTHER ==
[~2017-04-27] VITALS: Ht 182.9 cm; Wt 87.5 kg
[~2017-04-27 10:02] MED LIST changes: -ACETAMINOPHEN TAB 650MG DOSE (2X325MG) PO SCH; -diphenhydrAMINE 25 MG CAP PO SCH
[2017-04-27] MEDS ORDERED: diphenhydrAMINE 25 MG CAP PO ONE (10:15)
[2017-04-27] MEDS ORDERED: FAMOTIDINE INJ 20MG/2ML VIAL (S0028) IV ONE (10:15)
[2017-04-27] MEDS ORDERED: dexameTHASONE 20 MG/5 ML VIAL (J1100) IV ONE (10:15)
[2017-04-27] MEDS ORDERED: diphenhydrAMINE 25 MG CAP PO PRN (10:15)
[2017-04-27] MEDS ORDERED: ACETAMINOPHEN TAB 650MG DOSE (2X325MG) PO ONE (10:15)
== END 2017-04-27 15:40 | disposition home or self-care (01) ==
LOC: M INFU 10:02
PROVIDERS: ATTEND Internal Medicine Medical Oncology
DX: D64.9 Anemia, unspecified (principal); Z96.1 Presence of intraocular lens; Z87.442 Personal history of urinary calculi; Z87.891 Personal history of nicotine dependence; Z88.8 Allergy status to other drugs, medicaments and biological substances; Z79.899 Other long term (current) drug therapy
CPT/HCPCS: 36430; 86850; 86900; 86901; 86920; J1100; P9016; P9034

== ENCOUNTER 2017-04-28 06:52 | Outpatient (CLI) | payer MEDICARE, BC, OTHER ==
[~2017-04-28] VITALS: Ht 182.9 cm; Wt 87.5 kg
[~2017-04-28 06:52] MED LIST changes: +ACETAMINOPHEN TAB 650MG DOSE (2X325MG) PO ONE; +FAMOTIDINE INJ 20MG/2ML VIAL (S0028) IV ONE; +dexameTHASONE 20 MG/5 ML VIAL (J1100) IV ONE; +diphenhydrAMINE 25 MG CAP PO ONE
[2017-04-28] MEDS ORDERED: diphenhydrAMINE 25 MG CAP PO PRN (07:00)
== END 2017-04-28 12:15 | disposition home or self-care (01) ==
LOC: M INFU 06:52
PROVIDERS: ATTEND Internal Medicine Medical Oncology
DX: D64.9 Anemia, unspecified (principal); Z96.1 Presence of intraocular lens; Z87.442 Personal history of urinary calculi; Z87.891 Personal history of nicotine dependence; Z88.8 Allergy status to other drugs, medicaments and biological substances; Z79.899 Other long term (current) drug therapy
CPT/HCPCS: 36430; J1100; P9016; P9034

== ENCOUNTER 2017-05-04 10:23 | Outpatient (CLI) | payer MEDICARE, BC, OTHER ==
[~2017-05-04] VITALS: Ht 182.9 cm; Wt 87.5 kg
[~2017-05-04 10:23] MED LIST changes: +ACETAMINOPHEN TAB 650MG DOSE (2X325MG) PO SCH; +dexameTHASONE 20 MG/5 ML VIAL (J1100) IV ONE; +diphenhydrAMINE 25 MG CAP PO SCH
[2017-05-04] MEDS ORDERED: FAMOTIDINE IV BAG 20 MG in APPROPRIATE DILUENT 1 EA IV ONE (10:30)
== END 2017-05-04 15:30 | disposition home or self-care (01) ==
LOC: M INFU 10:23
PROVIDERS: ATTEND Internal Medicine Medical Oncology
DX: D46.9 Myelodysplastic syndrome, unspecified (principal); Z79.899 Other long term (current) drug therapy; Z88.8 Allergy status to other drugs, medicaments and biological substances
CPT/HCPCS: 36430; 82728; 83550; 86850; 86900; 86901; 86920; J1100; P9016; P9034

== ENCOUNTER → 2017-05-04 | Outpatient (REF) | payer MEDICARE, OTHER ==
[~2017-05-04] MED LIST changes: -ACETAMINOPHEN TAB 650MG DOSE (2X325MG) PO ONE; -FAMOTIDINE INJ 20MG/2ML VIAL (S0028) IV ONE; -dexameTHASONE 20 MG/5 ML VIAL (J1100) IV ONE; -diphenhydrAMINE 25 MG CAP PO ONE
[2017-05-04 14:08] LABS: PERCENT SATURATION 90.6 % (19.7-50.0)
== END ==
LOC: M LAB REF 13:18
PROVIDERS: ATTEND Internal Medicine Medical Oncology
DX: D46.9 Myelodysplastic syndrome, unspecified (principal)

== ENCOUNTER 2017-05-05 06:56 | Outpatient (CLI) | payer MEDICARE, BC, OTHER ==
[~2017-05-05] VITALS: Ht 182.9 cm; Wt 87.5 kg
[~2017-05-05 06:56] MED LIST changes: -ACETAMINOPHEN TAB 650MG DOSE (2X325MG) PO SCH; -dexameTHASONE 20 MG/5 ML VIAL (J1100) IV ONE; -diphenhydrAMINE 25 MG CAP PO SCH
[2017-05-05] MEDS ORDERED: diphenhydrAMINE 25 MG CAP PO SCH (07:00)
[2017-05-05] MEDS ORDERED: FAMOTIDINE IV BAG 20 MG in APPROPRIATE DILUENT 1 EA IV ONE (07:00)
[2017-05-05] MEDS ORDERED: dexameTHASONE 20 MG/5 ML VIAL (J1100) IV ONE (07:00)
[2017-05-05] MEDS ORDERED: ACETAMINOPHEN TAB 650MG DOSE (2X325MG) PO SCH (07:01)
[2017-05-05 07:55] LABS: ALBUMIN 2.7 GM/DL (3.2-5.2); ALBUMIN/GLOBULIN RATIO 0.68 (1.00-1.93); ALKALINE PHOSPHATASE 84 U/L (45-117); ALT/SGPT 64 U/L (12-78); ANION GAP 9 MEQ/L (8-16); AST/SGOT 25 U/L (7-37); BILIRUBIN,TOTAL 0.4 MG/DL (0.2-1.0); BLOOD UREA NITROGEN 25 MG/DL (7-18); CALCIUM LEVEL 8.4 MG/DL (8.8-10.2); CARBON DIOXIDE LEVEL 24 MEQ/L (21-32); CHLORIDE LEVEL 108 MEQ/L (98-107); CHOLESTEROL LEVEL 98 MG/DL (<200); CREATININE FOR GFR 0.86 MG/DL (0.70-1.30); GLOMERULAR FILTRATION RATE > 60.0 (>42); GLUCOSE, FASTING 111 MG/DL (83-110); MAGNESIUM LEVEL 2.1 MG/DL (1.8-2.4); POTASSIUM SERUM 4.1 MEQ/L (3.5-5.1); SODIUM LEVEL 141 MEQ/L (136-145); TOTAL PROTEIN 6.7 GM/DL (6.4-8.2); TRIGLYCERIDES LEVEL 75 MG/DL (<150)
[2017-05-05] MEDS ORDERED: diphenhydrAMINE 25 MG CAP PO ONE (10:00)
== END 2017-05-05 12:30 | disposition home or self-care (01) ==
LOC: M INFU 06:56
PROVIDERS: ATTEND Internal Medicine Medical Oncology
DX: D46.9 Myelodysplastic syndrome, unspecified (principal); Z88.8 Allergy status to other drugs, medicaments and biological substances; Z96.1 Presence of intraocular lens; Z87.891 Personal history of nicotine dependence; Z79.899 Other long term (current) drug therapy
CPT/HCPCS: 36415; 36430; 80053; 80061; 83735; 83880; 96365; 96375; G0103; J1100; P9016; P9034

== ENCOUNTER 2017-05-11 10:35 | Outpatient (CLI) | payer MEDICARE, BC, OTHER ==
[2017-05-11] MEDS: diphenhydrAMINE 25 MG CAP PO (12:37)
[2017-05-11] MEDS: ACETAMINOPHEN TAB 650MG DOSE (2X325MG) PO (12:37)
[2017-05-11] MEDS: dexameTHASONE 20 MG/5 ML VIAL (J1100) IV (15:58)
[2017-05-11] MEDS: FAMOTIDINE/NS 20 MG/50 ML BAG (S0028) IV (16:36)
[2017-05-12 07:46] LABS: IMMEDIATE SPIN CROSSMATCH 1
[2017-05-12 09:25] LABS: IMMEDIATE SPIN CROSSMATCH 1 2
== END 2017-05-11 18:35 | disposition home or self-care (01) ==
LOC: M INFU 10:35
DX: D46.9 Myelodysplastic syndrome, unspecified (principal); Z96.1 Presence of intraocular lens; Z88.8 Allergy status to other drugs, medicaments and biological substances; Z87.442 Personal history of urinary calculi; Z87.891 Personal history of nicotine dependence; Z79.899 Other long term (current) drug therapy
CPT/HCPCS: 36430

== ENCOUNTER 2017-05-12 07:01 | Outpatient (CLI) | payer MEDICARE, BC, OTHER ==
[2017-05-12] MEDS: diphenhydrAMINE 25 MG CAP PO (07:09)
[2017-05-12] MEDS: ACETAMINOPHEN TAB 650MG DOSE (2X325MG) PO (07:09)
[2017-05-12] MEDS: dexameTHASONE 20 MG/5 ML VIAL (J1100) IV (07:10)
[2017-05-12] MEDS: FAMOTIDINE IV BAG 20 MG in APPROPRIATE DILUENT 1 EA IV (07:10)
== END 2017-05-12 11:35 | disposition home or self-care (01) ==
LOC: M INFU 07:01
DX: D46.9 Myelodysplastic syndrome, unspecified (principal); Z96.1 Presence of intraocular lens; Z87.442 Personal history of urinary calculi; Z87.891 Personal history of nicotine dependence; Z88.8 Allergy status to other drugs, medicaments and biological substances; Z79.899 Other long term (current) drug therapy
CPT/HCPCS: 36430

== ENCOUNTER 2017-05-18 11:10 | Outpatient (CLI) | payer MEDICARE, BC, OTHER ==
[2017-05-18] MEDS: diphenhydrAMINE 25 MG CAP PO (11:25)
[2017-05-18] MEDS: ACETAMINOPHEN TAB 650MG DOSE (2X325MG) PO (11:25)
[2017-05-18] MEDS: FAMOTIDINE IV BAG 20 MG in APPROPRIATE DILUENT 1 EA IV (11:26)
[2017-05-18] MEDS: dexameTHASONE 20 MG/5 ML VIAL (J1100) IV (12:11)
[2017-05-18] MEDS ORDERED: diphenhydrAMINE 25 MG CAP PO (13:30)
[2017-05-19 08:19] LABS: IMMEDIATE SPIN CROSSMATCH 1
[2017-05-19 10:19] LABS: IMMEDIATE SPIN CROSSMATCH 1 2
== END 2017-05-18 16:15 | disposition home or self-care (01) ==
LOC: M INFU 11:10
DX: D64.9 Anemia, unspecified (principal); D46.9 Myelodysplastic syndrome, unspecified; I10 Essential (primary) hypertension; E78.00 Pure hypercholesterolemia, unspecified; R20.2 Paresthesia of skin; Z87.891 Personal history of nicotine dependence; Z79.899 Other long term (current) drug therapy
CPT/HCPCS: 36430

== ENCOUNTER 2017-05-19 06:55 | Outpatient (CLI) | payer MEDICARE, BC, OTHER ==
[~2017-05-19 06:55] MED LIST changes: -BENA25CA4 PO; -EXJA500T PO; -FERR500T PO; -GLUC1CAP10 PO; -HYZA50TA2 PO; -JADE1TAB2 PO; -MULT1TAB18 PO; -POTA10TAB PO; -POTA540T PO; -PRED20TA PO; -SIMV40TA2 PO; -VITMTA PO; +diphenhydrAMINE 25 MG CAP PO
[2017-05-19] MEDS: diphenhydrAMINE 25 MG CAP PO (07:20)
[2017-05-19] MEDS: ACETAMINOPHEN TAB 650MG DOSE (2X325MG) PO (07:21)
[2017-05-19] MEDS: dexameTHASONE 20 MG/5 ML VIAL (J1100) IV (07:22)
[2017-05-19] MEDS: FAMOTIDINE/NS 20 MG/50 ML BAG (S0028) IV (08:00)
== END 2017-05-19 12:30 | disposition home or self-care (01) ==
LOC: M INFU 06:55
DX: D64.9 Anemia, unspecified (principal); D46.9 Myelodysplastic syndrome, unspecified; E78.00 Pure hypercholesterolemia, unspecified; I10 Essential (primary) hypertension; R20.2 Paresthesia of skin; Z87.891 Personal history of nicotine dependence; Z79.899 Other long term (current) drug therapy
CPT/HCPCS: 36430

== ENCOUNTER 2017-05-25 10:17 | Outpatient (CLI) | payer MEDICARE, BC, OTHER ==
[2017-05-25] MEDS: diphenhydrAMINE 25 MG CAP PO (11:40)
[2017-05-25] MEDS: ACETAMINOPHEN TAB 650MG DOSE (2X325MG) PO (11:40)
[2017-05-25] MEDS ORDERED: LIDOCAINE 2% INJ 100 MG/5 ML SDV (FOR ANES.) As Ordered (12:11)
[2017-05-25] MEDS ORDERED: PROPOFOL 500 MG/50 ML VIAL As Ordered (12:11)
[2017-05-25] MEDS: FAMOTIDINE IV BAG 20 MG in APPROPRIATE DILUENT 1 EA IV (14:26)
[2017-05-25] MEDS: dexameTHASONE 20 MG/5 ML VIAL (J1100) IV (14:26)
[2017-05-26 07:39] LABS: IMMEDIATE SPIN CROSSMATCH 1
[2017-05-26 09:44] LABS: IMMEDIATE SPIN CROSSMATCH 1 2
== END 2017-05-25 17:20 | disposition home or self-care (01) ==
LOC: M INFU 10:17
DX: D46.9 Myelodysplastic syndrome, unspecified (principal); Z79.899 Other long term (current) drug therapy; Z88.8 Allergy status to other drugs, medicaments and biological substances
CPT/HCPCS: 36430

== ENCOUNTER 2017-05-26 06:52 | Outpatient (CLI) | payer MEDICARE, BC, OTHER ==
[2017-05-26] MEDS: FAMOTIDINE IV BAG 20 MG in APPROPRIATE DILUENT 1 EA IV (07:06)
[2017-05-26] MEDS: dexameTHASONE 20 MG/5 ML VIAL (J1100) IV (07:06)
[2017-05-26] MEDS: diphenhydrAMINE 25 MG CAP PO (07:07)
[2017-05-26] MEDS: ACETAMINOPHEN TAB 650MG DOSE (2X325MG) PO (07:07)
== END 2017-05-26 11:45 | disposition home or self-care (01) ==
LOC: M INFU 06:52
DX: D46.9 Myelodysplastic syndrome, unspecified (principal); Z79.899 Other long term (current) drug therapy; Z88.8 Allergy status to other drugs, medicaments and biological substances
CPT/HCPCS: 36430

== ENCOUNTER 2017-06-01 09:28 | Outpatient (CLI) | payer MEDICARE, BC, OTHER ==
[2017-06-01] MEDS: dexameTHASONE 20 MG/5 ML VIAL (J1100) IV (10:05)
[2017-06-01] MEDS: FAMOTIDINE IV BAG 20 MG in APPROPRIATE DILUENT 1 EA IV (10:05)
[2017-06-01] MEDS: diphenhydrAMINE 25 MG CAP PO (10:05)
[2017-06-01] MEDS: ACETAMINOPHEN TAB 650MG DOSE (2X325MG) PO (10:05)
[2017-06-02 08:29] LABS: IMMEDIATE SPIN CROSSMATCH 1
[2017-06-02 10:10] LABS: IMMEDIATE SPIN CROSSMATCH 1 2
== END 2017-06-01 15:30 | disposition home or self-care (01) ==
LOC: M INFU 09:28
DX: D46.9 Myelodysplastic syndrome, unspecified (principal); Z79.899 Other long term (current) drug therapy; Z88.8 Allergy status to other drugs, medicaments and biological substances
CPT/HCPCS: 36430

== ENCOUNTER 2017-06-02 06:57 | Outpatient (CLI) | payer MEDICARE, BC, OTHER ==
[2017-06-02] MEDS: diphenhydrAMINE 25 MG CAP PO (07:22)
[2017-06-02] MEDS: dexameTHASONE 20 MG/5 ML VIAL (J1100) IV (07:22)
[2017-06-02] MEDS: ACETAMINOPHEN TAB 650MG DOSE (2X325MG) PO (07:22)
[2017-06-02] MEDS: FAMOTIDINE IV BAG 20 MG in APPROPRIATE DILUENT 1 EA IV (07:54)
== END 2017-06-02 12:15 | disposition home or self-care (01) ==
LOC: M INFU 06:57
DX: D46.9 Myelodysplastic syndrome, unspecified (principal); Z88.8 Allergy status to other drugs, medicaments and biological substances; Z79.899 Other long term (current) drug therapy
CPT/HCPCS: 36430

== ENCOUNTER 2017-06-08 10:05 | Outpatient (CLI) | payer MEDICARE, BC, OTHER ==
[2017-06-08] MEDS: dexameTHASONE 20 MG/5 ML VIAL (J1100) IV (10:19)
[2017-06-08] MEDS: ACETAMINOPHEN TAB 650MG DOSE (2X325MG) PO (10:19)
[2017-06-08] MEDS: diphenhydrAMINE 25 MG CAP PO (10:20)
[2017-06-08] MEDS: FAMOTIDINE/NS 20 MG/50 ML BAG (S0028) IV (10:20)
[2017-06-08 13:54] LABS: IMMEDIATE SPIN CROSSMATCH 1 2
[2017-06-09 08:20] LABS: IMMEDIATE SPIN CROSSMATCH 1
== END 2017-06-08 16:00 | disposition home or self-care (01) ==
LOC: M INFU 10:05
DX: D64.9 Anemia, unspecified (principal); Z79.899 Other long term (current) drug therapy
CPT/HCPCS: 36430

== ENCOUNTER 2017-06-09 07:12 | Outpatient (CLI) | payer MEDICARE, BC, OTHER ==
[2017-06-09] MEDS: dexameTHASONE 20 MG/5 ML VIAL (J1100) IV (07:20)
[2017-06-09] MEDS: diphenhydrAMINE 25 MG CAP PO ×2 (07:21→09:46)
[2017-06-09] MEDS: ACETAMINOPHEN TAB 650MG DOSE (2X325MG) PO (07:21)
[2017-06-09] MEDS: FAMOTIDINE IV BAG 20 MG in APPROPRIATE DILUENT 1 EA IV (07:21)
== END 2017-06-09 12:30 | disposition home or self-care (01) ==
LOC: M INFU 07:12
DX: D64.9 Anemia, unspecified (principal); Z88.8 Allergy status to other drugs, medicaments and biological substances; Z79.899 Other long term (current) drug therapy
CPT/HCPCS: 36430

== ENCOUNTER 2017-06-15 09:23 | Outpatient (CLI) | payer MEDICARE, BC, OTHER ==
[2017-06-15] MEDS: dexameTHASONE 20 MG/5 ML VIAL (J1100) IV (10:19)
[2017-06-15] MEDS: ACETAMINOPHEN TAB 650MG DOSE (2X325MG) PO (10:20)
[2017-06-15] MEDS: diphenhydrAMINE 25 MG CAP PO ×2 (10:20→13:26)
[2017-06-15] MEDS: FAMOTIDINE IV BAG 20 MG in APPROPRIATE DILUENT 1 EA IV (10:52)
[2017-06-15 12:59] LABS: IMMEDIATE SPIN CROSSMATCH 1 2
[2017-06-16 08:21] LABS: IMMEDIATE SPIN CROSSMATCH 1
== END 2017-06-15 15:00 | disposition home or self-care (01) ==
LOC: M INFU 09:23
DX: D64.9 Anemia, unspecified (principal); D46.9 Myelodysplastic syndrome, unspecified; I10 Essential (primary) hypertension; E78.00 Pure hypercholesterolemia, unspecified; R20.2 Paresthesia of skin; Z79.899 Other long term (current) drug therapy; Z88.8 Allergy status to other drugs, medicaments and biological substances; Z87.442 Personal history of urinary calculi; Z87.891 Personal history of nicotine dependence
CPT/HCPCS: 36430

== ENCOUNTER 2017-06-16 06:59 | Outpatient (CLI) | payer MEDICARE, BC, OTHER ==
[2017-06-16] MEDS: diphenhydrAMINE 25 MG CAP PO ×2 (07:12→11:53)
[2017-06-16] MEDS: ACETAMINOPHEN TAB 650MG DOSE (2X325MG) PO (07:12)
[2017-06-16] MEDS: dexameTHASONE 20 MG/5 ML VIAL (J1100) IV (07:13)
[2017-06-16] MEDS: FAMOTIDINE IV BAG 20 MG in APPROPRIATE DILUENT 1 EA IV (07:13)
== END 2017-06-16 13:00 | disposition home or self-care (01) ==
LOC: M INFU 06:59
DX: D64.9 Anemia, unspecified (principal); D46.9 Myelodysplastic syndrome, unspecified; I10 Essential (primary) hypertension; E78.00 Pure hypercholesterolemia, unspecified; R20.2 Paresthesia of skin; Z79.899 Other long term (current) drug therapy; Z88.8 Allergy status to other drugs, medicaments and biological substances; Z87.891 Personal history of nicotine dependence; Z87.442 Personal history of urinary calculi
CPT/HCPCS: 36430

== ENCOUNTER → 2017-06-22 | Outpatient (CLI) | payer MEDICARE, BC, OTHER ==
[2017-06-22] MEDS: ACETAMINOPHEN TAB 650MG DOSE (2X325MG) PO ×3 (09:50)
[2017-06-22] MEDS: diphenhydrAMINE 25 MG CAP PO ×3 (09:50)
[2017-06-22] MEDS: dexameTHASONE 20 MG/5 ML VIAL (J1100) IV ×3 (09:50)
[2017-06-22] MEDS: FAMOTIDINE IV BAG 20 MG in APPROPRIATE DILUENT 1 EA IV ×3 (10:05)
[2017-06-22 12:34] LABS: IMMEDIATE SPIN CROSSMATCH 1 2
[2017-06-23 08:13] LABS: IMMEDIATE SPIN CROSSMATCH 1
== END ==
LOC: M INFU 09:34
DX: D64.9 Anemia, unspecified (principal); Z79.899 Other long term (current) drug therapy
CPT/HCPCS: 36430

== ENCOUNTER 2017-06-23 06:52 | Outpatient (CLI) | payer MEDICARE, BC, OTHER ==
[2017-06-23] MEDS: diphenhydrAMINE 25 MG CAP PO (07:06)
[2017-06-23] MEDS: dexameTHASONE 20 MG/5 ML VIAL (J1100) IV (07:07)
[2017-06-23] MEDS: FAMOTIDINE IV BAG 20 MG in APPROPRIATE DILUENT 1 EA IV (07:07)
[2017-06-23] MEDS: ACETAMINOPHEN TAB 650MG DOSE (2X325MG) PO (07:07)
== END 2017-06-23 12:00 | disposition home or self-care (01) ==
LOC: M INFU 06:52
DX: D46.9 Myelodysplastic syndrome, unspecified (principal)
CPT/HCPCS: 36430

== ENCOUNTER 2017-06-29 09:23 | Outpatient (CLI) | payer MEDICARE, BC, OTHER ==
[2017-06-29] MEDS: dexameTHASONE 20 MG/5 ML VIAL (J1100) IV (09:37)
[2017-06-29] MEDS: FAMOTIDINE IV BAG 20 MG in APPROPRIATE DILUENT 1 EA IV (09:37)
[2017-06-29] MEDS: ACETAMINOPHEN TAB 650MG DOSE (2X325MG) PO (09:38)
[2017-06-29] MEDS: diphenhydrAMINE 25 MG CAP PO (09:38)
[2017-06-29 12:40] LABS: IMMEDIATE SPIN CROSSMATCH 1 2
[2017-06-30 08:16] LABS: IMMEDIATE SPIN CROSSMATCH 1
== END 2017-06-29 15:30 | disposition home or self-care (01) ==
LOC: M INFU 09:23
DX: D46.9 Myelodysplastic syndrome, unspecified (principal); Z79.899 Other long term (current) drug therapy
CPT/HCPCS: 36430

== ENCOUNTER 2017-06-30 06:57 | Outpatient (CLI) | payer MEDICARE, BC, OTHER ==
[2017-06-30] MEDS: diphenhydrAMINE 25 MG CAP PO (07:11)
[2017-06-30] MEDS: ACETAMINOPHEN TAB 650MG DOSE (2X325MG) PO (07:11)
[2017-06-30] MEDS: FAMOTIDINE IV BAG 20 MG in APPROPRIATE DILUENT 1 EA IV (07:12)
[2017-06-30] MEDS: dexameTHASONE 20 MG/5 ML VIAL (J1100) IV (07:12)
== END 2017-06-30 12:30 | disposition home or self-care (01) ==
LOC: M INFU 06:57
DX: D64.9 Anemia, unspecified (principal); D46.9 Myelodysplastic syndrome, unspecified; Z87.891 Personal history of nicotine dependence
CPT/HCPCS: 36430

== ENCOUNTER 2017-07-06 09:52 | Outpatient (CLI) | payer MEDICARE, BC, OTHER ==
[2017-07-06] MEDS: dexameTHASONE 20 MG/5 ML VIAL (J1100) IV (10:13)
[2017-07-06] MEDS: FAMOTIDINE IV BAG 20 MG in APPROPRIATE DILUENT 1 EA IV (10:14)
[2017-07-06] MEDS: ACETAMINOPHEN TAB 650MG DOSE (2X325MG) PO (10:14)
[2017-07-06] MEDS: diphenhydrAMINE 25 MG CAP PO (10:14)
[2017-07-06 10:54] LABS: IMMEDIATE SPIN CROSSMATCH 1
[2017-07-07 10:30] LABS: IMMEDIATE SPIN CROSSMATCH 1 2
== END 2017-07-06 15:00 | disposition home or self-care (01) ==
LOC: M INFU 09:52
DX: D64.9 Anemia, unspecified (principal); I10 Essential (primary) hypertension; E78.00 Pure hypercholesterolemia, unspecified; Z87.442 Personal history of urinary calculi; Z79.899 Other long term (current) drug therapy; Z88.8 Allergy status to other drugs, medicaments and biological substances
CPT/HCPCS: 36430

== ENCOUNTER 2017-07-07 07:06 | Outpatient (CLI) | payer MEDICARE, BC, OTHER ==
[2017-07-07] MEDS: FAMOTIDINE/NS 20 MG/50 ML BAG (S0028) IV (07:33)
[2017-07-07] MEDS: diphenhydrAMINE 25 MG CAP PO (07:33)
[2017-07-07] MEDS: dexameTHASONE 20 MG/5 ML VIAL (J1100) IV (07:33)
[2017-07-07] MEDS: ACETAMINOPHEN TAB 650MG DOSE (2X325MG) PO (07:33)
== END 2017-07-07 12:30 | disposition home or self-care (01) ==
LOC: M INFU 07:06
DX: D46.9 Myelodysplastic syndrome, unspecified (principal); D64.9 Anemia, unspecified; I10 Essential (primary) hypertension; E78.00 Pure hypercholesterolemia, unspecified; Z79.899 Other long term (current) drug therapy; Z88.8 Allergy status to other drugs, medicaments and biological substances; Z87.442 Personal history of urinary calculi
CPT/HCPCS: 36430

== ENCOUNTER 2017-07-13 09:44 | Outpatient (CLI) | payer MEDICARE, BC, OTHER ==
[2017-07-13] MEDS: dexameTHASONE 20 MG/5 ML VIAL (J1100) IV (11:00)
[2017-07-13] MEDS: diphenhydrAMINE 25 MG CAP PO ×2 (11:00→13:33)
[2017-07-13] MEDS: ACETAMINOPHEN TAB 650MG DOSE (2X325MG) PO (11:01)
[2017-07-13] MEDS: FAMOTIDINE IV BAG 20 MG in APPROPRIATE DILUENT 1 EA IV (11:02)
[2017-07-13 13:51] LABS: IMMEDIATE SPIN CROSSMATCH 1 2
[2017-07-14 08:39] LABS: IMMEDIATE SPIN CROSSMATCH 1
== END 2017-07-13 16:15 | disposition home or self-care (01) ==
LOC: M INFU 09:44
DX: D46.9 Myelodysplastic syndrome, unspecified (principal); D64.9 Anemia, unspecified; I10 Essential (primary) hypertension; E78.00 Pure hypercholesterolemia, unspecified; Z79.899 Other long term (current) drug therapy; Z88.8 Allergy status to other drugs, medicaments and biological substances; Z87.442 Personal history of urinary calculi; Z87.891 Personal history of nicotine dependence
CPT/HCPCS: 36430

== ENCOUNTER 2017-07-14 07:15 | Outpatient (CLI) | payer MEDICARE, BC, OTHER ==
[2017-07-14] MEDS ORDERED: diphenhydrAMINE 25 MG CAP PO (07:30)
[2017-07-14] MEDS: diphenhydrAMINE 25 MG CAP PO (07:37)
[2017-07-14] MEDS: ACETAMINOPHEN TAB 650MG DOSE (2X325MG) PO (07:38)
[2017-07-14] MEDS: dexameTHASONE 20 MG/5 ML VIAL (J1100) IV (07:38)
[2017-07-14] MEDS: FAMOTIDINE IV BAG 20 MG in APPROPRIATE DILUENT 1 EA IV (07:38)
== END 2017-07-14 12:00 | disposition home or self-care (01) ==
LOC: M INFU 07:15
DX: D46.9 Myelodysplastic syndrome, unspecified (principal); D64.9 Anemia, unspecified; I10 Essential (primary) hypertension; E78.00 Pure hypercholesterolemia, unspecified; Z79.899 Other long term (current) drug therapy; Z88.8 Allergy status to other drugs, medicaments and biological substances; Z87.891 Personal history of nicotine dependence
CPT/HCPCS: 36430

== ENCOUNTER 2017-07-20 09:41 | Outpatient (CLI) | payer MEDICARE, BC, OTHER ==
[2017-07-20] MEDS: FAMOTIDINE IV BAG 20 MG in APPROPRIATE DILUENT 1 EA IV (10:56)
[2017-07-20] MEDS: diphenhydrAMINE 25 MG CAP PO (10:57)
[2017-07-20] MEDS: ACETAMINOPHEN TAB 650MG DOSE (2X325MG) PO (10:57)
[2017-07-20] MEDS: dexameTHASONE 20 MG/5 ML VIAL (J1100) IV (11:02)
[2017-07-20 14:05] LABS: IMMEDIATE SPIN CROSSMATCH 1 1
[2017-07-21 08:26] LABS: IMMEDIATE SPIN CROSSMATCH 1 2
== END 2017-07-20 16:30 | disposition home or self-care (01) ==
LOC: M INFU 09:41
DX: D46.9 Myelodysplastic syndrome, unspecified (principal); D64.9 Anemia, unspecified; I10 Essential (primary) hypertension; E78.00 Pure hypercholesterolemia, unspecified; Z79.899 Other long term (current) drug therapy; Z88.8 Allergy status to other drugs, medicaments and biological substances; Z87.891 Personal history of nicotine dependence; Z87.442 Personal history of urinary calculi
CPT/HCPCS: 36430

== ENCOUNTER 2017-07-21 07:05 | Outpatient (CLI) | payer MEDICARE, BC, OTHER ==
[2017-07-21] MEDS: ACETAMINOPHEN TAB 650MG DOSE (2X325MG) PO (07:30)
[2017-07-21] MEDS: diphenhydrAMINE 25 MG CAP PO (07:30)
[2017-07-21] MEDS: FAMOTIDINE IV BAG 20 MG in APPROPRIATE DILUENT 1 EA IV (07:30)
[2017-07-21] MEDS: dexameTHASONE 20 MG/5 ML VIAL (J1100) IV (07:30)
== END 2017-07-21 10:40 | disposition home or self-care (01) ==
LOC: M INFU 07:05
DX: D46.9 Myelodysplastic syndrome, unspecified (principal); D64.9 Anemia, unspecified; I10 Essential (primary) hypertension; Z79.899 Other long term (current) drug therapy; Z88.8 Allergy status to other drugs, medicaments and biological substances; Z87.442 Personal history of urinary calculi
CPT/HCPCS: 36430

== ENCOUNTER 2017-07-27 10:05 | Outpatient (CLI) | payer MEDICARE, BC, OTHER ==
[2017-07-27] MEDS: dexameTHASONE 20 MG/5 ML VIAL (J1100) IV (10:42)
[2017-07-27] MEDS: FAMOTIDINE/NS 20 MG/50 ML BAG (S0028) IV (10:42)
[2017-07-27] MEDS: ACETAMINOPHEN TAB 650MG DOSE (2X325MG) PO (10:43)
[2017-07-27] MEDS: diphenhydrAMINE 25 MG CAP PO (10:43)
[2017-07-27 14:00] LABS: IMMEDIATE SPIN CROSSMATCH 1 1
[2017-07-28 08:18] LABS: IMMEDIATE SPIN CROSSMATCH 1
== END 2017-07-27 16:00 | disposition home or self-care (01) ==
LOC: M INFU 10:05
DX: D46.9 Myelodysplastic syndrome, unspecified (principal); D64.9 Anemia, unspecified; Z79.899 Other long term (current) drug therapy; Z88.8 Allergy status to other drugs, medicaments and biological substances; Z87.891 Personal history of nicotine dependence
CPT/HCPCS: 36430

== ENCOUNTER 2017-07-28 06:50 | Outpatient (CLI) | payer MEDICARE, BC, OTHER ==
[2017-07-28] MEDS: FAMOTIDINE IV BAG 20 MG in APPROPRIATE DILUENT 1 EA IV (07:15)
[2017-07-28] MEDS: dexameTHASONE 20 MG/5 ML VIAL (J1100) IV (07:15)
[2017-07-28] MEDS: ACETAMINOPHEN TAB 650MG DOSE (2X325MG) PO (07:15)
[2017-07-28] MEDS: diphenhydrAMINE 25 MG CAP PO (07:15)
== END 2017-07-28 10:30 | disposition home or self-care (01) ==
LOC: M INFU 06:50
DX: D46.9 Myelodysplastic syndrome, unspecified (principal); D64.9 Anemia, unspecified; I10 Essential (primary) hypertension; Z79.899 Other long term (current) drug therapy; Z88.8 Allergy status to other drugs, medicaments and biological substances; Z87.891 Personal history of nicotine dependence; Z87.448 Personal history of other diseases of urinary system
CPT/HCPCS: 36430

== ENCOUNTER 2017-08-03 09:45 | Outpatient (CLI) | payer MEDICARE, BC, OTHER ==
[2017-08-03] MEDS: diphenhydrAMINE 25 MG CAP PO (12:05)
[2017-08-03] MEDS: dexameTHASONE 20 MG/5 ML VIAL (J1100) IV (12:05)
[2017-08-03] MEDS: FAMOTIDINE/NS 20 MG/50 ML BAG (S0028) IV (12:05)
[2017-08-03] MEDS: ACETAMINOPHEN TAB 650MG DOSE (2X325MG) PO (12:06)
[2017-08-04 07:40] LABS: IMMEDIATE SPIN CROSSMATCH 1
[2017-08-04 09:55] LABS: IMMEDIATE SPIN CROSSMATCH 1 2
== END 2017-08-03 17:15 | disposition home or self-care (01) ==
LOC: M INFU 09:45
DX: D46.9 Myelodysplastic syndrome, unspecified (principal); D64.9 Anemia, unspecified; E03.9 Hypothyroidism, unspecified; Z87.442 Personal history of urinary calculi; Z87.891 Personal history of nicotine dependence
CPT/HCPCS: 36430

== ENCOUNTER 2017-08-04 06:46 | Outpatient (CLI) | payer MEDICARE, BC, OTHER ==
[2017-08-04] MEDS: diphenhydrAMINE 25 MG CAP PO ×2 (07:08→09:30)
[2017-08-04] MEDS: ACETAMINOPHEN TAB 650MG DOSE (2X325MG) PO (07:08)
[2017-08-04] MEDS: dexameTHASONE 20 MG/5 ML VIAL (J1100) IV (07:08)
[2017-08-04] MEDS: FAMOTIDINE/NS 20 MG/50 ML BAG (S0028) IV (07:09)
== END 2017-08-04 12:20 | disposition home or self-care (01) ==
LOC: M INFU 06:46
DX: D46.9 Myelodysplastic syndrome, unspecified (principal); D64.9 Anemia, unspecified; Z88.8 Allergy status to other drugs, medicaments and biological substances; Z79.899 Other long term (current) drug therapy
CPT/HCPCS: 36430

== ENCOUNTER 2017-08-10 09:36 | Outpatient (CLI) | payer MEDICARE, BC, OTHER ==
[2017-08-10] MEDS: ACETAMINOPHEN TAB 650MG DOSE (2X325MG) PO (10:09)
[2017-08-10] MEDS: diphenhydrAMINE 25 MG CAP PO (10:09)
[2017-08-10] MEDS: dexameTHASONE 20 MG/5 ML VIAL (J1100) IV (10:09)
[2017-08-10] MEDS: FAMOTIDINE IV BAG 20 MG in APPROPRIATE DILUENT 1 EA IV (10:09)
[2017-08-11 08:06] LABS: IMMEDIATE SPIN CROSSMATCH 1
[2017-08-11 09:37] LABS: IMMEDIATE SPIN CROSSMATCH 1 2
== END 2017-08-10 15:30 | disposition home or self-care (01) ==
LOC: M INFU 09:36
DX: D46.9 Myelodysplastic syndrome, unspecified (principal); D64.9 Anemia, unspecified; Z79.899 Other long term (current) drug therapy; Z88.8 Allergy status to other drugs, medicaments and biological substances; Z87.891 Personal history of nicotine dependence
CPT/HCPCS: 36430

== ENCOUNTER 2017-08-24 10:56 | Outpatient (CLI) | payer MEDICARE, BC, OTHER ==
[2017-08-24] MEDS: FAMOTIDINE/NS 20 MG/50 ML BAG (S0028) IV (11:12)
[2017-08-24] MEDS: diphenhydrAMINE 25 MG CAP PO ×2 (11:12→13:31)
[2017-08-24] MEDS: ACETAMINOPHEN TAB 650MG DOSE (2X325MG) PO (11:12)
[2017-08-24] MEDS: dexameTHASONE 20 MG/5 ML VIAL (J1100) IV (11:25)
[2017-08-25 07:58] LABS: IMMEDIATE SPIN CROSSMATCH 1
[2017-08-25 09:49] LABS: IMMEDIATE SPIN CROSSMATCH 1 2
== END 2017-08-24 16:45 | disposition home or self-care (01) ==
LOC: M INFU 10:56
DX: D46.9 Myelodysplastic syndrome, unspecified (principal); D64.9 Anemia, unspecified; Z79.899 Other long term (current) drug therapy; Z88.8 Allergy status to other drugs, medicaments and biological substances
CPT/HCPCS: 36430

== ENCOUNTER 2017-08-25 06:40 | Outpatient (CLI) | payer MEDICARE, BC, OTHER ==
[2017-08-25] MEDS: FAMOTIDINE IV BAG 20 MG in APPROPRIATE DILUENT 1 EA IV (07:07)
[2017-08-25] MEDS: dexameTHASONE 20 MG/5 ML VIAL (J1100) IV (07:07)
[2017-08-25] MEDS: diphenhydrAMINE 25 MG CAP PO (07:07)
[2017-08-25] MEDS: ACETAMINOPHEN TAB 650MG DOSE (2X325MG) PO (07:08)
== END 2017-08-25 12:00 | disposition home or self-care (01) ==
LOC: M INFU 06:40
DX: D46.9 Myelodysplastic syndrome, unspecified (principal); D64.9 Anemia, unspecified; Z79.899 Other long term (current) drug therapy; Z87.891 Personal history of nicotine dependence; Z88.8 Allergy status to other drugs, medicaments and biological substances
CPT/HCPCS: 36430

== ENCOUNTER 2017-08-31 10:36 | Outpatient (CLI) | payer MEDICARE, BC, OTHER ==
[2017-08-31] MEDS: ACETAMINOPHEN TAB 650MG DOSE (2X325MG) PO (11:07)
[2017-08-31] MEDS: diphenhydrAMINE 25 MG CAP PO (11:07)
[2017-08-31] MEDS: FAMOTIDINE/NS 20 MG/50 ML BAG (S0028) IV (11:07)
[2017-08-31] MEDS: dexameTHASONE 20 MG/5 ML VIAL (J1100) IV (11:07)
[2017-08-31 12:00] LABS: IMMEDIATE SPIN CROSSMATCH 1
[2017-08-31 13:45] LABS: IMMEDIATE SPIN CROSSMATCH 1 1
== END 2017-08-31 16:15 | disposition home or self-care (01) ==
LOC: M INFU 10:36
DX: D64.9 Anemia, unspecified (principal); D46.9 Myelodysplastic syndrome, unspecified; Z88.8 Allergy status to other drugs, medicaments and biological substances; Z87.891 Personal history of nicotine dependence; Z87.442 Personal history of urinary calculi
CPT/HCPCS: 36430

== ENCOUNTER 2017-09-07 11:12 | Outpatient (CLI) | payer MEDICARE, BC, OTHER ==
[2017-09-07] MEDS: ACETAMINOPHEN TAB 650MG DOSE (2X325MG) PO (11:44)
[2017-09-07] MEDS: FAMOTIDINE IV BAG 20 MG in APPROPRIATE DILUENT 1 EA IV (11:44)
[2017-09-07] MEDS: dexameTHASONE 20 MG/5 ML VIAL (J1100) IV (11:44)
[2017-09-07] MEDS: diphenhydrAMINE 25 MG CAP PO ×2 (11:44→14:11)
[2017-09-07 14:26] LABS: IMMEDIATE SPIN CROSSMATCH 1 1
[2017-09-08 08:53] LABS: IMMEDIATE SPIN CROSSMATCH 1
== END 2017-09-07 16:40 | disposition home or self-care (01) ==
LOC: M INFU 11:12
DX: D46.9 Myelodysplastic syndrome, unspecified (principal); Z88.8 Allergy status to other drugs, medicaments and biological substances; Z79.899 Other long term (current) drug therapy
CPT/HCPCS: 36430

== ENCOUNTER 2017-09-08 07:33 | Outpatient (CLI) | payer MEDICARE, BC, OTHER ==
[2017-09-08] MEDS: diphenhydrAMINE 25 MG CAP PO (07:42)
[2017-09-08] MEDS: ACETAMINOPHEN TAB 650MG DOSE (2X325MG) PO (07:42)
[2017-09-08] MEDS: FAMOTIDINE IV BAG 20 MG in APPROPRIATE DILUENT 1 EA IV (07:42)
[2017-09-08] MEDS: dexameTHASONE 20 MG/5 ML VIAL (J1100) IV (07:42)
== END 2017-09-08 11:00 | disposition home or self-care (01) ==
LOC: M INFU 07:33
DX: D46.9 Myelodysplastic syndrome, unspecified (principal); Z88.8 Allergy status to other drugs, medicaments and biological substances; Z79.899 Other long term (current) drug therapy
CPT/HCPCS: 36430

== ENCOUNTER 2017-09-14 11:17 | Outpatient (CLI) | payer MEDICARE, BC, OTHER ==
[2017-09-14 14:29] LABS: IMMEDIATE SPIN CROSSMATCH 1 1
[2017-09-15] MEDS: diphenhydrAMINE 25 MG CAP PO ×3 (07:20)
[2017-09-15] MEDS: dexameTHASONE 20 MG/5 ML VIAL (J1100) IV ×3 (07:20)
[2017-09-15] MEDS: ACETAMINOPHEN TAB 650MG DOSE (2X325MG) PO ×3 (07:21)
[2017-09-15] MEDS: FAMOTIDINE/NS 20 MG/50 ML BAG (S0028) IV ×3 (07:23)
[2017-09-15 07:56] LABS: IMMEDIATE SPIN CROSSMATCH 1
== END 2017-09-15 10:00 | disposition home or self-care (01) ==
LOC: M INFU 11:17
DX: D46.9 Myelodysplastic syndrome, unspecified (principal); D64.9 Anemia, unspecified; Z88.8 Allergy status to other drugs, medicaments and biological substances; Z87.442 Personal history of urinary calculi; Z87.891 Personal history of nicotine dependence; Z79.899 Other long term (current) drug therapy
CPT/HCPCS: 36430

== ENCOUNTER 2017-09-14 11:24 | Outpatient (CLI) | payer MEDICARE, BC, OTHER ==
[2017-09-14] MEDS: ACETAMINOPHEN TAB 650MG DOSE (2X325MG) PO (12:16)
[2017-09-14] MEDS: dexameTHASONE 20 MG/5 ML VIAL (J1100) IV (12:17)
[2017-09-14] MEDS: diphenhydrAMINE 25 MG CAP PO (12:17)
[2017-09-14] MEDS: FAMOTIDINE IV BAG 20 MG in APPROPRIATE DILUENT 1 EA IV (12:17)
[2017-09-22] MEDS ORDERED: dexameTHASONE 20 MG/5 ML VIAL (J1100) IV (06:30)
[2017-09-22] MEDS ORDERED: FAMOTIDINE IV BAG 20 MG in APPROPRIATE DILUENT 1 EA IV (06:30)
== END 2017-09-14 16:35 | disposition home or self-care (01) ==
LOC: M INFU 11:24
DX: D64.9 Anemia, unspecified (principal); D46.9 Myelodysplastic syndrome, unspecified; Z88.8 Allergy status to other drugs, medicaments and biological substances; Z87.442 Personal history of urinary calculi; Z87.891 Personal history of nicotine dependence
CPT/HCPCS: 36430

== ENCOUNTER 2017-09-21 10:40 | Outpatient (CLI) | payer MEDICARE, BC, OTHER ==
[2017-09-21] MEDS: FAMOTIDINE/NS 20 MG/50 ML BAG (S0028) IV (11:19)
[2017-09-21] MEDS: diphenhydrAMINE 25 MG CAP PO ×2 (11:19→13:00)
[2017-09-21] MEDS: ACETAMINOPHEN TAB 650MG DOSE (2X325MG) PO (11:19)
[2017-09-21] MEDS: dexameTHASONE 20 MG/5 ML VIAL (J1100) IV (11:20)
[2017-09-21 12:25] LABS: IMMEDIATE SPIN CROSSMATCH 1
[2017-09-21] MEDS: FAMOTIDINE IV BAG 20 MG in APPROPRIATE DILUENT 1 EA IV (13:52)
[2017-09-21 14:24] LABS: IMMEDIATE SPIN CROSSMATCH 1 1
== END 2017-09-21 16:30 | disposition home or self-care (01) ==
LOC: M INFU 10:40
DX: D46.9 Myelodysplastic syndrome, unspecified (principal); D64.9 Anemia, unspecified; Z79.899 Other long term (current) drug therapy; Z88.8 Allergy status to other drugs, medicaments and biological substances; Z87.442 Personal history of urinary calculi; Z87.891 Personal history of nicotine dependence
CPT/HCPCS: 36430

== ENCOUNTER 2017-09-22 06:45 | Outpatient (CLI) | payer MEDICARE, BC, OTHER ==
[2017-09-22] MEDS ORDERED: diphenhydrAMINE 25 MG CAP PO (07:00)
[2017-09-22] MEDS ORDERED: ACETAMINOPHEN TAB 650MG DOSE (2X325MG) PO (07:01)
[2017-09-22] MEDS ORDERED: FAMOTIDINE IV BAG 20 MG in APPROPRIATE DILUENT 1 EA IV (08:30)
[2017-09-22] MEDS ORDERED: dexameTHASONE 20 MG/5 ML VIAL (J1100) IV (08:30)
== END 2017-09-22 08:40 | disposition home or self-care (01) ==
LOC: M INFU 06:45
DX: D46.9 Myelodysplastic syndrome, unspecified (principal); D64.9 Anemia, unspecified; Z53.8 Procedure and treatment not carried out for other reasons

== ENCOUNTER 2017-09-28 10:44 | Outpatient (CLI) | payer MEDICARE, BC, OTHER ==
[2017-09-28] MEDS: FAMOTIDINE IV BAG 20 MG in APPROPRIATE DILUENT 1 EA IV (11:30)
[2017-09-28] MEDS: dexameTHASONE 20 MG/5 ML VIAL (J1100) IV (11:55)
[2017-09-28] MEDS: diphenhydrAMINE 25 MG CAP PO (11:56)
[2017-09-28] MEDS: ACETAMINOPHEN TAB 650MG DOSE (2X325MG) PO (11:56)
[2017-09-28 14:09] LABS: IMMEDIATE SPIN CROSSMATCH 1 2
[2017-09-29 08:46] LABS: IMMEDIATE SPIN CROSSMATCH 1
== END 2017-09-28 16:30 | disposition home or self-care (01) ==
LOC: M INFU 10:44
DX: D46.9 Myelodysplastic syndrome, unspecified (principal); D64.9 Anemia, unspecified; Z79.899 Other long term (current) drug therapy; Z88.8 Allergy status to other drugs, medicaments and biological substances; Z87.891 Personal history of nicotine dependence; Z87.442 Personal history of urinary calculi
CPT/HCPCS: 36430

== ENCOUNTER 2017-09-29 07:11 | Outpatient (CLI) | payer MEDICARE, BC, OTHER ==
[2017-09-29] MEDS: ACETAMINOPHEN TAB 650MG DOSE (2X325MG) PO (07:26)
[2017-09-29] MEDS: diphenhydrAMINE 25 MG CAP PO (07:26)
[2017-09-29] MEDS: FAMOTIDINE/NS 20 MG/50 ML BAG (S0028) IV (07:27)
[2017-09-29] MEDS: dexameTHASONE 20 MG/5 ML VIAL (J1100) IV (07:27)
== END 2017-09-29 12:45 | disposition home or self-care (01) ==
LOC: M INFU 07:11
DX: D46.9 Myelodysplastic syndrome, unspecified (principal); Z79.899 Other long term (current) drug therapy; Z88.8 Allergy status to other drugs, medicaments and biological substances; Z87.891 Personal history of nicotine dependence; Z87.442 Personal history of urinary calculi
CPT/HCPCS: 36430

== ENCOUNTER 2017-10-03 11:18 | Outpatient (CLI) | payer MEDICARE, BC, OTHER ==
[2017-10-03] MEDS ORDERED: dexameTHASONE 4 MG/ML 1ML VIAL (J1100) IV (11:45)
[2017-10-03] MEDS: FAMOTIDINE IV BAG 20 MG in APPROPRIATE DILUENT 1 EA IV (11:50)
[2017-10-03] MEDS: ACETAMINOPHEN TAB 650MG DOSE (2X325MG) PO (11:50)
[2017-10-03] MEDS: diphenhydrAMINE 25 MG CAP PO (11:50)
[2017-10-03] MEDS: dexameTHASONE 20 MG/5 ML VIAL (J1100) IV (12:18)
[2017-10-03 14:46] LABS: IMMEDIATE SPIN CROSSMATCH 1
== END 2017-10-03 16:30 | disposition home or self-care (01) ==
LOC: M INFU 11:18
DX: D46.9 Myelodysplastic syndrome, unspecified (principal); D46.21 Refractory anemia with excess of blasts 1; Z79.899 Other long term (current) drug therapy; Z88.8 Allergy status to other drugs, medicaments and biological substances; Z87.442 Personal history of urinary calculi; Z87.891 Personal history of nicotine dependence
CPT/HCPCS: 36430

== ENCOUNTER → 2017-10-03 | Outpatient (REF) | payer MEDICARE, BC, OTHER ==
[2017-10-03 14:20] LABS: REASON FOR REVIEW ANEMIA / RBC MORPH; SLIDE REVIEW Report; SOURCE PERIPHERAL SMEAR
[2017-10-03 14:29] LABS: FIBRINOGEN 360 MG/DL (221-452); INR 1.14; PARTIAL THROMBOPLASTIN TIME 30.6 SECONDS (26.8-37.9); PROTHROMBIN TIME 14.8 SECONDS (12.4-14.5)
[2017-10-03 14:32] LABS: D-DIMER QUANT 1049.2 ng/ml (<500)
== END ==
LOC: M LAB REF 13:26
DX: D46.21 Refractory anemia with excess of blasts 1 (principal)

== ENCOUNTER 2017-10-10 10:38 | Outpatient (CLI) | payer MEDICARE, BC, OTHER ==
[2017-10-10] MEDS: diphenhydrAMINE 25 MG CAP PO (11:02)
[2017-10-10] MEDS: ACETAMINOPHEN TAB 650MG DOSE (2X325MG) PO (11:03)
[2017-10-10] MEDS: dexameTHASONE 20 MG/5 ML VIAL (J1100) IV (11:03)
[2017-10-10] MEDS: FAMOTIDINE IV BAG 20 MG in APPROPRIATE DILUENT 1 EA IV (11:03)
[2017-10-10 13:34] LABS: IMMEDIATE SPIN CROSSMATCH 1 2
[2017-10-11 08:27] LABS: IMMEDIATE SPIN CROSSMATCH 1
== END 2017-10-10 15:45 ==
LOC: M INFU 10:38
DX: D46.21 Refractory anemia with excess of blasts 1 (principal); Z79.899 Other long term (current) drug therapy; Z88.8 Allergy status to other drugs, medicaments and biological substances; Z87.442 Personal history of urinary calculi; Z87.891 Personal history of nicotine dependence
CPT/HCPCS: 36430

== ENCOUNTER → 2017-10-10 | Outpatient (REF) | payer MEDICARE, BC, OTHER ==
[2017-10-10 14:13] LABS: REASON FOR REVIEW WBC/LEUKEMIA/BLAST; SLIDE REVIEW Report; SOURCE PERIPHERAL SMEAR
== END ==
LOC: M LAB REF 13:27
DX: D46.21 Refractory anemia with excess of blasts 1 (principal)

== ENCOUNTER 2017-10-11 06:59 | Outpatient (CLI) | payer MEDICARE, BC, OTHER ==
[2017-10-11] MEDS: diphenhydrAMINE 25 MG CAP PO (07:16)
[2017-10-11] MEDS: ACETAMINOPHEN TAB 650MG DOSE (2X325MG) PO (07:21)
[2017-10-11] MEDS: FAMOTIDINE/NS 20 MG/50 ML BAG (S0028) IV (07:21)
[2017-10-11] MEDS: dexameTHASONE 20 MG/5 ML VIAL (J1100) IV (07:50)
== END 2017-10-11 12:00 | disposition home or self-care (01) ==
LOC: M INFU 06:59
DX: D46.9 Myelodysplastic syndrome, unspecified (principal); D64.9 Anemia, unspecified; Z87.891 Personal history of nicotine dependence; Z79.899 Other long term (current) drug therapy; Z88.8 Allergy status to other drugs, medicaments and biological substances; Z87.442 Personal history of urinary calculi
CPT/HCPCS: 36430

== ENCOUNTER 2017-10-13 10:45 | Outpatient (CLI) | payer MEDICARE, BC, OTHER ==
[2017-10-13] MEDS: ACETAMINOPHEN TAB 650MG DOSE (2X325MG) PO (11:13)
[2017-10-13] MEDS: dexameTHASONE 20 MG/5 ML VIAL (J1100) IV (11:14)
[2017-10-13] MEDS: diphenhydrAMINE 25 MG CAP PO (11:14)
[2017-10-13] MEDS: FAMOTIDINE IV BAG 20 MG in APPROPRIATE DILUENT 1 EA IV (11:14)
[2017-10-13 12:05] LABS: IMMEDIATE SPIN CROSSMATCH 1
[2017-10-13 13:45] LABS: IMMEDIATE SPIN CROSSMATCH 1 1
== END 2017-10-13 15:55 | disposition home or self-care (01) ==
LOC: M INFU 10:45
DX: D46.9 Myelodysplastic syndrome, unspecified (principal); D64.9 Anemia, unspecified; Z79.899 Other long term (current) drug therapy; Z88.8 Allergy status to other drugs, medicaments and biological substances; Z87.442 Personal history of urinary calculi; Z87.891 Personal history of nicotine dependence
CPT/HCPCS: 36430

== ENCOUNTER 2017-10-19 09:53 | Outpatient (CLI) | payer MEDICARE, BC, OTHER ==
[2017-10-19] MEDS: dexameTHASONE 20 MG/5 ML VIAL (J1100) IV (10:46)
[2017-10-19] MEDS: FAMOTIDINE IV BAG 20 MG in APPROPRIATE DILUENT 1 EA IV (10:47)
[2017-10-19] MEDS: ACETAMINOPHEN TAB 650MG DOSE (2X325MG) PO (10:47)
[2017-10-19] MEDS: diphenhydrAMINE 25 MG CAP PO (10:47)
[2017-10-19] MEDS: FUROSEMIDE 20 MG/2 ML VIAL (J1940) IV (10:52)
[2017-10-19 13:11] LABS: IMMEDIATE SPIN CROSSMATCH 1
== END 2017-10-19 15:45 | disposition home or self-care (01) ==
LOC: M INFU 09:53
DX: D46.9 Myelodysplastic syndrome, unspecified (principal); I10 Essential (primary) hypertension; Z79.899 Other long term (current) drug therapy; Z88.8 Allergy status to other drugs, medicaments and biological substances; Z87.442 Personal history of urinary calculi; Z87.891 Personal history of nicotine dependence
CPT/HCPCS: 36430

== ENCOUNTER 2017-10-23 09:49 | Outpatient (CLI) | payer MEDICARE, BC, OTHER ==
[2017-10-23] MEDS: dexameTHASONE 20 MG/5 ML VIAL (J1100) IV (10:09)
[2017-10-23] MEDS: FAMOTIDINE IV BAG 20 MG in APPROPRIATE DILUENT 1 EA IV (10:09)
[2017-10-23] MEDS: diphenhydrAMINE 25 MG CAP PO ×2 (10:10→13:32)
[2017-10-23] MEDS: ACETAMINOPHEN TAB 650MG DOSE (2X325MG) PO (10:10)
[2017-10-23 10:40] LABS: IMMEDIATE SPIN CROSSMATCH 1
[2017-10-23 13:16] LABS: IMMEDIATE SPIN CROSSMATCH 1 1
== END 2017-10-23 15:45 | disposition home or self-care (01) ==
LOC: M INFU 09:49
DX: D46.9 Myelodysplastic syndrome, unspecified (principal); C95.90 Leukemia, unspecified not having achieved remission; Z88.8 Allergy status to other drugs, medicaments and biological substances; Z79.899 Other long term (current) drug therapy
CPT/HCPCS: 36430

== ENCOUNTER 2017-10-26 11:28 | Outpatient (CLI) | payer MEDICARE, BC, OTHER ==
[2017-10-26] MEDS ORDERED: diphenhydrAMINE 25 MG CAP PO (11:45)
[2017-10-26] MEDS: ACETAMINOPHEN TAB 650MG DOSE (2X325MG) PO (11:50)
[2017-10-26] MEDS: diphenhydrAMINE 25 MG CAP PO (11:50)
[2017-10-26] MEDS ORDERED: FAMOTIDINE IV (12:00)
[2017-10-26] MEDS ORDERED: DILUENT IV (12:00)
[2017-10-26 12:12] LABS: IMMEDIATE SPIN CROSSMATCH 1 1
[2017-10-26] MEDS: dexameTHASONE 20 MG/5 ML VIAL (J1100) IV (14:05)
[2017-10-26] MEDS: FAMOTIDINE IV BAG 20 MG in APPROPRIATE DILUENT 1 EA IV (14:05)
[2017-10-26 14:48] LABS: IMMEDIATE SPIN CROSSMATCH 1
== END 2017-10-26 17:00 | disposition home or self-care (01) ==
LOC: M INFU 11:28
DX: D46.9 Myelodysplastic syndrome, unspecified (principal); D64.9 Anemia, unspecified; Z79.899 Other long term (current) drug therapy; Z88.8 Allergy status to other drugs, medicaments and biological substances; Z87.442 Personal history of urinary calculi; Z87.891 Personal history of nicotine dependence
CPT/HCPCS: 36430

== ENCOUNTER 2017-10-30 10:13 | Outpatient (CLI) | payer MEDICARE, BC, OTHER ==
[2017-10-30] MEDS: diphenhydrAMINE 25 MG CAP PO (11:18)
[2017-10-30] MEDS: ACETAMINOPHEN TAB 650MG DOSE (2X325MG) PO (11:18)
[2017-10-30] MEDS: FAMOTIDINE/NS 20 MG/50 ML BAG (S0028) IV (11:18)
[2017-10-30] MEDS: dexameTHASONE 20 MG/5 ML VIAL (J1100) IV (11:19)
[2017-10-30 12:32] LABS: IMMEDIATE SPIN CROSSMATCH 1
== END 2017-10-30 16:15 | disposition home or self-care (01) ==
LOC: M INFU 10:13
DX: D46.9 Myelodysplastic syndrome, unspecified (principal); D64.9 Anemia, unspecified; I10 Essential (primary) hypertension; Z79.899 Other long term (current) drug therapy; Z88.8 Allergy status to other drugs, medicaments and biological substances; Z87.442 Personal history of urinary calculi
CPT/HCPCS: 36430

== ENCOUNTER 2017-11-02 09:44 | Outpatient (CLI) | payer MEDICARE, BC, OTHER ==
[2017-11-02] MEDS: FAMOTIDINE IV BAG 20 MG in APPROPRIATE DILUENT 1 EA IV (10:30)
[2017-11-02] MEDS: ACETAMINOPHEN TAB 650MG DOSE (2X325MG) PO (10:30)
[2017-11-02] MEDS: diphenhydrAMINE 25 MG CAP PO (10:31)
[2017-11-02] MEDS: dexameTHASONE 20 MG/5 ML VIAL (J1100) IV (10:32)
[2017-11-03 10:31] LABS: IMMEDIATE SPIN CROSSMATCH 1
[2017-11-03 12:18] LABS: IMMEDIATE SPIN CROSSMATCH 1 2
== END 2017-11-02 15:10 | disposition home or self-care (01) ==
LOC: M INFU 09:44
DX: D46.9 Myelodysplastic syndrome, unspecified (principal); D64.9 Anemia, unspecified; Z79.899 Other long term (current) drug therapy; Z88.8 Allergy status to other drugs, medicaments and biological substances; Z87.442 Personal history of urinary calculi; Z87.891 Personal history of nicotine dependence
CPT/HCPCS: 36430

== ENCOUNTER 2017-11-03 09:40 | Outpatient (CLI) | payer MEDICARE, BC, OTHER ==
[2017-11-03] MEDS: ACETAMINOPHEN TAB 650MG DOSE (2X325MG) PO (10:09)
[2017-11-03] MEDS: dexameTHASONE 20 MG/5 ML VIAL (J1100) IV (10:10)
[2017-11-03] MEDS: diphenhydrAMINE 25 MG CAP PO (10:10)
[2017-11-03] MEDS: FAMOTIDINE IV BAG 20 MG in APPROPRIATE DILUENT 1 EA IV (10:11)
== END 2017-11-03 14:40 | disposition home or self-care (01) ==
LOC: M INFU 09:40
DX: D46.9 Myelodysplastic syndrome, unspecified (principal); D64.9 Anemia, unspecified; Z79.899 Other long term (current) drug therapy
CPT/HCPCS: 36430

== ENCOUNTER 2017-11-07 07:09 | Outpatient (CLI) | payer MEDICARE, BC, OTHER ==
[2017-11-07] MEDS: diphenhydrAMINE 25 MG CAP PO (07:41)
[2017-11-07] MEDS: dexameTHASONE 20 MG/5 ML VIAL (J1100) IV (07:42)
[2017-11-07] MEDS: ACETAMINOPHEN TAB 650MG DOSE (2X325MG) PO (07:42)
[2017-11-07] MEDS: FAMOTIDINE IV BAG 20 MG in APPROPRIATE DILUENT 1 EA IV (07:42)
== END 2017-11-07 12:30 | disposition home or self-care (01) ==
LOC: M INFU 07:09
DX: D46.9 Myelodysplastic syndrome, unspecified (principal); C95.90 Leukemia, unspecified not having achieved remission; Z79.899 Other long term (current) drug therapy; Z88.8 Allergy status to other drugs, medicaments and biological substances
CPT/HCPCS: 36430

== ENCOUNTER 2017-11-09 09:42 | Outpatient (CLI) | payer MEDICARE, BC, OTHER ==
[2017-11-09] MEDS: dexameTHASONE 20 MG/5 ML VIAL (J1100) IV (10:09)
[2017-11-09] MEDS: ACETAMINOPHEN TAB 650MG DOSE (2X325MG) PO (10:11)
[2017-11-09] MEDS: FAMOTIDINE IV BAG 20 MG in APPROPRIATE DILUENT 1 EA IV (10:11)
[2017-11-09] MEDS: diphenhydrAMINE 25 MG CAP PO (10:11)
[2017-11-09 10:43] LABS: IMMEDIATE SPIN CROSSMATCH 1
[2017-11-09 12:16] LABS: IMMEDIATE SPIN CROSSMATCH 1 1
== END 2017-11-09 14:15 | disposition home or self-care (01) ==
LOC: M INFU 09:42
DX: D46.9 Myelodysplastic syndrome, unspecified (principal); C95.90 Leukemia, unspecified not having achieved remission; Z88.8 Allergy status to other drugs, medicaments and biological substances; Z79.899 Other long term (current) drug therapy
CPT/HCPCS: 36430

== ENCOUNTER 2017-11-13 11:12 | Outpatient (CLI) | payer MEDICARE, BC, OTHER ==
[2017-11-13] MEDS: FAMOTIDINE IV BAG 20 MG in APPROPRIATE DILUENT 1 EA IV (11:35)
[2017-11-13] MEDS ORDERED: dexameTHASONE 20 MG/5 ML VIAL (J1100) IV (11:45)
[2017-11-13] MEDS: ACETAMINOPHEN TAB 650MG DOSE (2X325MG) PO (11:47)
[2017-11-13] MEDS: diphenhydrAMINE 25 MG CAP PO (11:47)
[2017-11-13 12:13] LABS: IMMEDIATE SPIN CROSSMATCH 1
== END 2017-11-13 14:35 | disposition home or self-care (01) ==
LOC: M INFU 11:12
DX: D46.9 Myelodysplastic syndrome, unspecified (principal); C95.90 Leukemia, unspecified not having achieved remission; Z79.899 Other long term (current) drug therapy; Z88.8 Allergy status to other drugs, medicaments and biological substances
CPT/HCPCS: 36430

== ENCOUNTER 2017-11-27 10:56 | Outpatient (CLI) | payer MEDICARE, BC, OTHER ==
[2017-11-27] MEDS ORDERED: diphenhydrAMINE 25 MG CAP PO (11:00)
[2017-11-27] MEDS: dexameTHASONE 20 MG/5 ML VIAL (J1100) IV (11:47)
[2017-11-27] MEDS: diphenhydrAMINE 25 MG CAP PO (11:47)
[2017-11-27] MEDS: FAMOTIDINE/NS 20 MG/50 ML BAG (S0028) IV (11:47)
[2017-11-27] MEDS: ACETAMINOPHEN TAB 650MG DOSE (2X325MG) PO (11:47)
[2017-11-27 12:46] LABS: IMMEDIATE SPIN CROSSMATCH 1
== END 2017-11-27 15:15 | disposition home or self-care (01) ==
LOC: M INFU 10:56
DX: D46.21 Refractory anemia with excess of blasts 1 (principal); D69.6 Thrombocytopenia, unspecified; Z88.8 Allergy status to other drugs, medicaments and biological substances; Z79.899 Other long term (current) drug therapy
CPT/HCPCS: 36430

== ENCOUNTER 2017-11-30 09:59 | Outpatient (CLI) | payer MEDICARE, BC, OTHER ==
[2017-11-30] MEDS: ACETAMINOPHEN TAB 650MG DOSE (2X325MG) PO ×2 (10:43)
[2017-11-30] MEDS: FAMOTIDINE IV BAG 20 MG in APPROPRIATE DILUENT 1 EA IV (10:44)
[2017-11-30] MEDS: dexameTHASONE 20 MG/5 ML VIAL (J1100) IV ×2 (10:44)
[2017-11-30] MEDS: diphenhydrAMINE 25 MG CAP PO ×2 (10:44)
[2017-11-30 11:48] LABS: IMMEDIATE SPIN CROSSMATCH 1
[2017-11-30 13:28] LABS: IMMEDIATE SPIN CROSSMATCH 1 1
== END 2017-11-30 15:40 | disposition home or self-care (01) ==
LOC: M INFU 09:59
DX: D64.9 Anemia, unspecified (principal); D46.9 Myelodysplastic syndrome, unspecified; Z79.899 Other long term (current) drug therapy; Z87.891 Personal history of nicotine dependence; Z88.8 Allergy status to other drugs, medicaments and biological substances; Z87.442 Personal history of urinary calculi
CPT/HCPCS: 36430

== ENCOUNTER 2017-12-04 09:46 | Outpatient (CLI) | payer MEDICARE, BC, OTHER ==
[2017-12-04] MEDS: ACETAMINOPHEN TAB 650MG DOSE (2X325MG) PO (10:20)
[2017-12-04] MEDS: dexameTHASONE 20 MG/5 ML VIAL (J1100) IV (10:20)
[2017-12-04] MEDS: diphenhydrAMINE 25 MG CAP PO (10:21)
[2017-12-04] MEDS: FAMOTIDINE IV BAG 20 MG in APPROPRIATE DILUENT 1 EA IV (10:21)
[2017-12-04 11:15] LABS: IMMEDIATE SPIN CROSSMATCH 1
[2017-12-04 13:14] LABS: IMMEDIATE SPIN CROSSMATCH 1 1
== END 2017-12-04 15:55 | disposition home or self-care (01) ==
LOC: M INFU 09:46
DX: D46.9 Myelodysplastic syndrome, unspecified (principal); D64.9 Anemia, unspecified; Z88.8 Allergy status to other drugs, medicaments and biological substances; Z87.891 Personal history of nicotine dependence; Z79.899 Other long term (current) drug therapy; Z87.442 Personal history of urinary calculi
CPT/HCPCS: 36430

== ENCOUNTER 2017-12-07 09:42 | Outpatient (CLI) | payer MEDICARE, BC, OTHER ==
[2017-12-07] MEDS: diphenhydrAMINE 25 MG CAP PO (10:25)
[2017-12-07] MEDS: ACETAMINOPHEN TAB 650MG DOSE (2X325MG) PO (10:25)
[2017-12-07] MEDS: dexameTHASONE 20 MG/5 ML VIAL (J1100) IV (10:25)
[2017-12-07] MEDS: FAMOTIDINE IV BAG 20 MG in APPROPRIATE DILUENT 1 EA IV (10:25)
[2017-12-07 11:34] LABS: IMMEDIATE SPIN CROSSMATCH 1
== END 2017-12-07 15:00 | disposition home or self-care (01) ==
LOC: M INFU 09:42
DX: D69.6 Thrombocytopenia, unspecified (principal); D46.9 Myelodysplastic syndrome, unspecified; Z79.899 Other long term (current) drug therapy; Z88.8 Allergy status to other drugs, medicaments and biological substances
CPT/HCPCS: 36430

== ENCOUNTER 2017-12-11 10:46 | Outpatient (CLI) | payer MEDICARE, BC, OTHER ==
[2017-12-11] MEDS: dexameTHASONE 20 MG/5 ML VIAL (J1100) IV (11:09)
[2017-12-11] MEDS: diphenhydrAMINE 25 MG CAP PO (11:10)
[2017-12-11] MEDS: ACETAMINOPHEN TAB 650MG DOSE (2X325MG) PO (11:10)
[2017-12-11] MEDS: FAMOTIDINE IV BAG 20 MG in APPROPRIATE DILUENT 1 EA IV (11:10)
[2017-12-11] MEDS ORDERED: diphenhydrAMINE 25 MG CAP PO (11:15)
[2017-12-11 11:53] LABS: IMMEDIATE SPIN CROSSMATCH 1
[2017-12-11 13:51] LABS: IMMEDIATE SPIN CROSSMATCH 1 1
== END 2017-12-11 16:15 | disposition home or self-care (01) ==
LOC: M INFU 10:46
DX: D64.9 Anemia, unspecified (principal); D46.9 Myelodysplastic syndrome, unspecified; D69.6 Thrombocytopenia, unspecified; Z88.8 Allergy status to other drugs, medicaments and biological substances; Z79.899 Other long term (current) drug therapy
CPT/HCPCS: 36430

== ENCOUNTER 2017-12-14 10:22 | Outpatient (CLI) | payer MEDICARE, BC, OTHER ==
[2017-12-14] MEDS ORDERED: dexameTHASONE 20 MG/5 ML VIAL (J1100) IV (10:45)
[2017-12-14] MEDS: dexameTHASONE 20 MG/5 ML VIAL (J1100) IV (10:52)
[2017-12-14] MEDS: FAMOTIDINE/NS 20 MG/50 ML BAG (S0028) IV (10:52)
[2017-12-14] MEDS: diphenhydrAMINE 25 MG CAP PO (10:52)
[2017-12-14] MEDS: ACETAMINOPHEN TAB 650MG DOSE (2X325MG) PO (10:53)
[2017-12-14] MEDS ORDERED: diphenhydrAMINE 25 MG CAP PO (10:57)
[2017-12-14 11:26] LABS: IMMEDIATE SPIN CROSSMATCH 1
[2017-12-14 13:58] LABS: IMMEDIATE SPIN CROSSMATCH 1 1
== END 2017-12-14 16:00 | disposition home or self-care (01) ==
LOC: M INFU 10:22
DX: D64.9 Anemia, unspecified (principal); D46.9 Myelodysplastic syndrome, unspecified; D69.6 Thrombocytopenia, unspecified; Z88.8 Allergy status to other drugs, medicaments and biological substances; Z79.899 Other long term (current) drug therapy
CPT/HCPCS: 36430

== ENCOUNTER 2017-12-18 10:55 | Outpatient (CLI) | payer MEDICARE, BC, OTHER ==
[2017-12-18] MEDS ORDERED: dexameTHASONE 20 MG/5 ML VIAL (J1100) IV (11:00)
[2017-12-18] MEDS ORDERED: FAMOTIDINE/NS 20 MG/50 ML BAG (S0028) IV (11:00)
[2017-12-18] MEDS ORDERED: diphenhydrAMINE 25 MG CAP PO (11:00)
[2017-12-18] MEDS ORDERED: ACETAMINOPHEN TAB 650MG DOSE (2X325MG) PO (11:00)
[2017-12-18 11:44] LABS: IMMEDIATE SPIN CROSSMATCH 1
[2017-12-18 13:06] LABS: IMMEDIATE SPIN CROSSMATCH 1 1
== END 2017-12-18 15:10 | disposition home or self-care (01) ==
LOC: M INFU 10:55
DX: D64.9 Anemia, unspecified (principal); D69.6 Thrombocytopenia, unspecified; D46.9 Myelodysplastic syndrome, unspecified; Z88.8 Allergy status to other drugs, medicaments and biological substances; Z79.899 Other long term (current) drug therapy
CPT/HCPCS: 36430

== ENCOUNTER 2017-12-21 11:19 | Outpatient (CLI) | payer MEDICARE, BC, OTHER ==
[2017-12-21] MEDS: ACETAMINOPHEN TAB 650MG DOSE (2X325MG) PO (11:51)
[2017-12-21] MEDS: diphenhydrAMINE 25 MG CAP PO (11:51)
[2017-12-21] MEDS: FAMOTIDINE IV BAG 20 MG in APPROPRIATE DILUENT 1 EA IV (11:52)
[2017-12-21] MEDS: dexameTHASONE 20 MG/5 ML VIAL (J1100) IV (11:52)
[2017-12-21 12:31] LABS: IMMEDIATE SPIN CROSSMATCH 1
== END 2017-12-21 14:40 | disposition home or self-care (01) ==
LOC: M INFU 11:19
DX: D46.9 Myelodysplastic syndrome, unspecified (principal); D69.6 Thrombocytopenia, unspecified; Z88.8 Allergy status to other drugs, medicaments and biological substances; Z79.899 Other long term (current) drug therapy
CPT/HCPCS: 36430

== ENCOUNTER → 2017-12-21 | Outpatient (REF) | payer MEDICARE, OTHER ==
[2017-12-21 13:33] LABS: APPEARANCE, URINE CLOUDY (CLEAR); BACTERIA, URINE AUTO NEGATIVE (NEGATIVE); BILIRUBIN, URINE AUTO NEGATIVE (NEGATIVE); BLOOD, URINE BLOOD 3+ (NEGATIVE); COLOR, URINE RED (YELLOW); GLUCOSE, URINE (UA) AUTO NEGATIVE (NEGATIVE); KETONE, URINE AUTO NEGATIVE (NEGATIVE); LEUKOCYTE ESTERASE, URINE AUTO 2+ (NEGATIVE); MUCUS, URINE SMALL (NEGATIVE); NITRITE, URINE AUTO NEGATIVE (NEGATIVE); PROTEIN, URINE AUTO 2+ mg/dL (NEGATIVE); RBC, URINE AUTO TNTC /HPF (0-3); SPECIFIC GRAVITY URINE AUTO 1.015 (1.002-1.035); SQUAMOUS EPITHELIAL CELL UR AU 0 /HPF (0-6); UROBILINOGEN, URINE AUTO 0.2 mg/dL (0.0-2.0); WBC, URINE AUTO TNTC /HPF (0-3)
== END ==
LOC: M LAB REF 12:43
DX: D46.21 Refractory anemia with excess of blasts 1 (principal)

== ENCOUNTER 2017-12-25 12:23 | Outpatient (CLI) | payer MEDICARE, BC, OTHER ==
[2017-12-25] MEDS: dexameTHASONE 20 MG/5 ML VIAL (J1100) IV (10:00)
[2017-12-25] MEDS: ACETAMINOPHEN TAB 650MG DOSE (2X325MG) PO (13:01)
[2017-12-25] MEDS: diphenhydrAMINE 25 MG CAP PO (13:01)
[2017-12-25] MEDS: FAMOTIDINE IV BAG 20 MG in APPROPRIATE DILUENT 1 EA IV (13:02)
[2017-12-25 13:52] LABS: IMMEDIATE SPIN CROSSMATCH 1
[2017-12-25 18:06] LABS: IMMEDIATE SPIN CROSSMATCH 1 2
== END 2017-12-25 19:55 | disposition home or self-care (01) ==
LOC: M INFU 12:23
DX: D46.9 Myelodysplastic syndrome, unspecified (principal); C95.90 Leukemia, unspecified not having achieved remission; Z88.8 Allergy status to other drugs, medicaments and biological substances; Z79.899 Other long term (current) drug therapy
CPT/HCPCS: 36430

== ENCOUNTER → 2017-12-26 | Outpatient (CLI) | payer MEDICARE, BC, OTHER | LOC: M RAD 13:48 | DX: R31.9 Hematuria, unspecified (principal) | CPT/HCPCS: 76775 ==

== ENCOUNTER 2017-12-28 09:55 | Outpatient (CLI) | payer MEDICARE, BC, OTHER ==
[2017-12-28] MEDS: diphenhydrAMINE 25 MG CAP PO (07:00)
[2017-12-28] MEDS: ACETAMINOPHEN TAB 650MG DOSE (2X325MG) PO (07:01)
[2017-12-28] MEDS: FAMOTIDINE IV BAG 20 MG in APPROPRIATE DILUENT 1 EA IV (10:00)
[2017-12-28] MEDS: dexameTHASONE 20 MG/5 ML VIAL (J1100) IV (10:03)
[2017-12-28 11:06] LABS: IMMEDIATE SPIN CROSSMATCH 1
[2017-12-28 12:46] LABS: IMMEDIATE SPIN CROSSMATCH 1 1
== END 2017-12-28 15:00 | disposition home or self-care (01) ==
LOC: M INFU 09:55
DX: C95.00 Acute leukemia of unspecified cell type not having achieved remission (principal); Z79.899 Other long term (current) drug therapy; Z88.8 Allergy status to other drugs, medicaments and biological substances; Z87.442 Personal history of urinary calculi; Z87.891 Personal history of nicotine dependence
CPT/HCPCS: 36430

== ENCOUNTER 2018-01-01 11:46 | Outpatient (CLI) | payer MEDICARE, BC, OTHER ==
[~2018-01-01 11:46] MED LIST changes: +FAMOTIDINE IV BAG 20 MG in APPROPRIATE DILUENT 1 EA IV; +dexameTHASONE 20 MG/5 ML VIAL (J1100) IV; -diphenhydrAMINE 25 MG CAP PO
[2018-01-01] MEDS: diphenhydrAMINE 25 MG CAP PO (12:04)
[2018-01-01] MEDS: ACETAMINOPHEN TAB 650MG DOSE (2X325MG) PO (12:04)
[2018-01-01 12:31] LABS: IMMEDIATE SPIN CROSSMATCH 1
[2018-01-01 15:11] LABS: IMMEDIATE SPIN CROSSMATCH 1 1
== END 2018-01-01 17:30 | disposition home or self-care (01) ==
LOC: M INFU 11:46
DX: C92.00 Acute myeloblastic leukemia, not having achieved remission (principal); Z88.8 Allergy status to other drugs, medicaments and biological substances; Z79.899 Other long term (current) drug therapy
CPT/HCPCS: 36430

== ENCOUNTER 2018-01-03 11:43 | Outpatient (CLI) | payer MEDICARE, BC, OTHER ==
[2018-01-03] MEDS: diphenhydrAMINE 25 MG CAP PO (12:21)
[2018-01-03] MEDS: ACETAMINOPHEN TAB 650MG DOSE (2X325MG) PO (12:21)
[2018-01-03] MEDS: FAMOTIDINE IV BAG 20 MG in APPROPRIATE DILUENT 1 EA IV (12:21)
[2018-01-03 12:59] LABS: IMMEDIATE SPIN CROSSMATCH 1
[2018-01-03 14:39] LABS: IMMEDIATE SPIN CROSSMATCH 1 1
== END 2018-01-03 17:00 | disposition home or self-care (01) ==
LOC: M INFU 11:43
DX: C92.00 Acute myeloblastic leukemia, not having achieved remission (principal); Z88.8 Allergy status to other drugs, medicaments and biological substances; Z79.899 Other long term (current) drug therapy
CPT/HCPCS: 36430

== ENCOUNTER 2018-01-05 11:05 | Outpatient (CLI) | payer MEDICARE, BC, OTHER ==
[2018-01-05] MEDS: dexameTHASONE 20 MG/5 ML VIAL (J1100) IV (11:00)
[2018-01-05] MEDS: diphenhydrAMINE 50 MG CAP PO (11:34)
[2018-01-05] MEDS: ACETAMINOPHEN TAB 650MG DOSE (2X325MG) PO (11:34)
[2018-01-05] MEDS: FAMOTIDINE IV BAG 20 MG in APPROPRIATE DILUENT 1 EA IV (11:34)
[2018-01-05 12:16] LABS: IMMEDIATE SPIN CROSSMATCH 1
== END 2018-01-05 14:10 | disposition home or self-care (01) ==
LOC: M INFU 11:05
DX: C92.00 Acute myeloblastic leukemia, not having achieved remission (principal); G62.9 Polyneuropathy, unspecified; E78.00 Pure hypercholesterolemia, unspecified; I10 Essential (primary) hypertension; Z87.442 Personal history of urinary calculi; M19.90 Unspecified osteoarthritis, unspecified site; D64.9 Anemia, unspecified; D69.6 Thrombocytopenia, unspecified; D46.9 Myelodysplastic syndrome, unspecified; Z92.21 Personal history of antineoplastic chemotherapy; Z88.8 Allergy status to other drugs, medicaments and biological substances; Z79.899 Other long term (current) drug therapy
CPT/HCPCS: 36430

== ENCOUNTER 2018-01-08 08:58 | Outpatient (CLI) | payer MEDICARE, BC, OTHER ==
[~2018-01-08 08:58] MED LIST changes: +ACETAMINOPHEN TAB 650MG DOSE (2X325MG) As Ordered; +ACETAMINOPHEN TAB 650MG DOSE (2X325MG) PO; -FAMOTIDINE IV BAG 20 MG in APPROPRIATE DILUENT 1 EA IV; +FAMOTIDINE/NS 20 MG/50 ML BAG (S0028) As Ordered; +dexameTHASONE 20 MG/5 ML VIAL (J1100) As Ordered; -dexameTHASONE 20 MG/5 ML VIAL (J1100) IV; +diphenhydrAMINE 25 MG CAP As Ordered; +diphenhydrAMINE 25 MG CAP PO
[2018-01-08] MEDS ORDERED: dexameTHASONE 20 MG/5 ML VIAL (J1100) IV (09:15)
[2018-01-08] MEDS: FAMOTIDINE IV BAG 20 MG in APPROPRIATE DILUENT 1 EA IV (09:25)
[2018-01-08 10:17] LABS: IMMEDIATE SPIN CROSSMATCH 1
[2018-01-08 13:08] LABS: IMMEDIATE SPIN CROSSMATCH 1 1
== END 2018-01-08 15:30 | disposition home or self-care (01) ==
LOC: M INFU 08:58
DX: C92.00 Acute myeloblastic leukemia, not having achieved remission (principal); D69.6 Thrombocytopenia, unspecified; D64.9 Anemia, unspecified; G62.9 Polyneuropathy, unspecified; E78.00 Pure hypercholesterolemia, unspecified; I10 Essential (primary) hypertension; Z87.442 Personal history of urinary calculi; M19.90 Unspecified osteoarthritis, unspecified site; Z79.899 Other long term (current) drug therapy; Z88.8 Allergy status to other drugs, medicaments and biological substances
CPT/HCPCS: 36430

== ENCOUNTER 2018-01-10 10:28 | Outpatient (CLI) | payer MEDICARE, BC, OTHER ==
[2018-01-10] MEDS: diphenhydrAMINE 25 MG CAP PO (10:39)
[2018-01-10] MEDS: ACETAMINOPHEN TAB 650MG DOSE (2X325MG) PO (10:39)
[2018-01-10] MEDS: FAMOTIDINE IV BAG 20 MG in APPROPRIATE DILUENT 1 EA IV (10:40)
[2018-01-10 11:18] LABS: IMMEDIATE SPIN CROSSMATCH 1
[2018-01-10 12:43] LABS: IMMEDIATE SPIN CROSSMATCH 1 1
== END 2018-01-10 15:15 | disposition home or self-care (01) ==
LOC: M INFU 10:28
DX: C92.00 Acute myeloblastic leukemia, not having achieved remission (principal); G62.9 Polyneuropathy, unspecified; E78.00 Pure hypercholesterolemia, unspecified; I10 Essential (primary) hypertension; Z87.442 Personal history of urinary calculi; M19.90 Unspecified osteoarthritis, unspecified site; M62.81 Muscle weakness (generalized); D64.9 Anemia, unspecified; D69.6 Thrombocytopenia, unspecified; D46.9 Myelodysplastic syndrome, unspecified; Z79.899 Other long term (current) drug therapy; Z88.8 Allergy status to other drugs, medicaments and biological substances
CPT/HCPCS: 36430

== ENCOUNTER 2018-01-12 09:17 | Outpatient (CLI) | payer MEDICARE, BC, OTHER ==
[~2018-01-12 09:17] MED LIST changes: -ACETAMINOPHEN TAB 650MG DOSE (2X325MG) As Ordered; -ACETAMINOPHEN TAB 650MG DOSE (2X325MG) PO; -dexameTHASONE 20 MG/5 ML VIAL (J1100) As Ordered; -diphenhydrAMINE 25 MG CAP As Ordered; -diphenhydrAMINE 25 MG CAP PO
[2018-01-12] MEDS: ACETAMINOPHEN TAB 650MG DOSE (2X325MG) PO (09:38)
[2018-01-12] MEDS: FAMOTIDINE IV BAG 20 MG in APPROPRIATE DILUENT 1 EA IV (09:39)
[2018-01-12] MEDS: dexameTHASONE 20 MG/5 ML VIAL (J1100) IV (09:39)
[2018-01-12] MEDS: diphenhydrAMINE 25 MG CAP PO (09:39)
[2018-01-12 10:09] LABS: IMMEDIATE SPIN CROSSMATCH 1
[2018-01-12 11:50] LABS: IMMEDIATE SPIN CROSSMATCH 1 1
== END 2018-01-12 14:30 | disposition home or self-care (01) ==
LOC: M INFU 09:17
DX: C92.00 Acute myeloblastic leukemia, not having achieved remission (principal); D64.9 Anemia, unspecified; D69.6 Thrombocytopenia, unspecified; Z88.8 Allergy status to other drugs, medicaments and biological substances
CPT/HCPCS: 36430

== ENCOUNTER 2018-01-16 09:29 | Outpatient (CLI) | payer MEDICARE, BC, OTHER ==
[2018-01-16] MEDS: ACETAMINOPHEN TAB 650MG DOSE (2X325MG) PO (09:52)
[2018-01-16] MEDS: diphenhydrAMINE 25 MG CAP PO (09:52)
[2018-01-16] MEDS: dexameTHASONE 20 MG/5 ML VIAL (J1100) IV (09:52)
[2018-01-16] MEDS: FAMOTIDINE IV BAG 20 MG in APPROPRIATE DILUENT 1 EA IV (09:53)
[2018-01-16 10:27] LABS: IMMEDIATE SPIN CROSSMATCH 1
[2018-01-16] MEDS: FUROSEMIDE 20 MG/2 ML VIAL (J1940) IV ×2 (14:12→17:46)
[2018-01-16 16:05] LABS: IMMEDIATE SPIN CROSSMATCH 1 2
== END 2018-01-16 18:10 | disposition home or self-care (01) ==
LOC: M INFU 09:29
PROVIDERS: Orthopaedic Surgery
DX: D64.9 Anemia, unspecified (principal); D69.6 Thrombocytopenia, unspecified; Z88.8 Allergy status to other drugs, medicaments and biological substances
CPT/HCPCS: 36430

== ENCOUNTER 2018-01-18 10:25 | Outpatient (CLI) | payer MEDICARE, BC, OTHER ==
[2018-01-18] MEDS: ACETAMINOPHEN TAB 650MG DOSE (2X325MG) PO (07:01)
[2018-01-18] MEDS: FAMOTIDINE IV BAG 20 MG in APPROPRIATE DILUENT 1 EA IV (10:30)
[2018-01-18] MEDS: dexameTHASONE 20 MG/5 ML VIAL (J1100) IV (10:30)
[2018-01-18] MEDS: diphenhydrAMINE 25 MG CAP PO (11:01)
[2018-01-18 11:31] LABS: IMMEDIATE SPIN CROSSMATCH 1
[2018-01-18 13:19] LABS: IMMEDIATE SPIN CROSSMATCH 1 2
== END 2018-01-18 16:00 | disposition home or self-care (01) ==
LOC: M INFU 10:25
DX: C92.92 Myeloid leukemia, unspecified in relapse (principal); D46.9 Myelodysplastic syndrome, unspecified; D69.6 Thrombocytopenia, unspecified; I10 Essential (primary) hypertension; E78.00 Pure hypercholesterolemia, unspecified; R20.2 Paresthesia of skin; M19.90 Unspecified osteoarthritis, unspecified site; Z79.899 Other long term (current) drug therapy; Z88.8 Allergy status to other drugs, medicaments and biological substances; Z87.442 Personal history of urinary calculi; Z87.891 Personal history of nicotine dependence
CPT/HCPCS: 36430

== ENCOUNTER 2018-01-22 09:09 | Outpatient (CLI) | payer MEDICARE, BC, OTHER ==
[2018-01-22] MEDS: ACETAMINOPHEN TAB 650MG DOSE (2X325MG) PO (09:41)
[2018-01-22] MEDS: diphenhydrAMINE 25 MG CAP PO (09:41)
[2018-01-22] MEDS: FAMOTIDINE IV BAG 20 MG in APPROPRIATE DILUENT 1 EA IV (09:41)
[2018-01-22] MEDS: dexameTHASONE 20 MG/5 ML VIAL (J1100) IV (10:15)
[2018-01-22 10:23] LABS: IMMEDIATE SPIN CROSSMATCH 1
== END 2018-01-22 13:10 | disposition home or self-care (01) ==
LOC: M INFU 09:09
DX: D46.9 Myelodysplastic syndrome, unspecified (principal); D69.6 Thrombocytopenia, unspecified; Z79.899 Other long term (current) drug therapy; Z88.8 Allergy status to other drugs, medicaments and biological substances
CPT/HCPCS: 36430

== ENCOUNTER 2018-01-25 09:49 | Outpatient (CLI) | payer MEDICARE, BC, OTHER ==
[2018-01-25] MEDS: ACETAMINOPHEN TAB 650MG DOSE (2X325MG) PO (10:00)
[2018-01-25] MEDS: dexameTHASONE 20 MG/5 ML VIAL (J1100) IV (10:00)
[2018-01-25] MEDS: diphenhydrAMINE 25 MG CAP PO (10:00)
[2018-01-25] MEDS: FAMOTIDINE IV (10:29)
[2018-01-25] MEDS: DILUENT IV (10:29)
[2018-01-25 10:56] LABS: IMMEDIATE SPIN CROSSMATCH 1
[2018-01-25 15:15] LABS: IMMEDIATE SPIN CROSSMATCH 1 2
== END 2018-01-25 17:55 | disposition home or self-care (01) ==
LOC: M INFU 09:49
DX: D46.9 Myelodysplastic syndrome, unspecified (principal); D64.9 Anemia, unspecified; R20.2 Paresthesia of skin; E78.00 Pure hypercholesterolemia, unspecified; I10 Essential (primary) hypertension; M12.9 Arthropathy, unspecified; Z88.8 Allergy status to other drugs, medicaments and biological substances; Z79.899 Other long term (current) drug therapy; Z87.442 Personal history of urinary calculi
CPT/HCPCS: 36430

== ENCOUNTER 2018-01-29 11:47 | Outpatient (CLI) | payer MEDICARE, BC, OTHER ==
[~2018-01-29 11:47] MED LIST changes: +FAMOTIDINE IV BAG 20 MG in APPROPRIATE DILUENT 1 EA IV; -FAMOTIDINE/NS 20 MG/50 ML BAG (S0028) As Ordered
[2018-01-29] MEDS: diphenhydrAMINE 25 MG CAP PO (11:56)
[2018-01-29] MEDS: ACETAMINOPHEN TAB 650MG DOSE (2X325MG) PO (11:57)
[2018-01-29] MEDS: FAMOTIDINE IV BAG 20 MG in APPROPRIATE DILUENT 1 EA IV (11:58)
[2018-01-29 12:44] LABS: IMMEDIATE SPIN CROSSMATCH 1
[2018-01-29 14:35] LABS: IMMEDIATE SPIN CROSSMATCH 1 1
== END 2018-01-29 17:00 | disposition home or self-care (01) ==
LOC: M INFU 11:47
DX: D46.9 Myelodysplastic syndrome, unspecified (principal); D69.6 Thrombocytopenia, unspecified; R20.2 Paresthesia of skin; M12.9 Arthropathy, unspecified; E78.00 Pure hypercholesterolemia, unspecified; I10 Essential (primary) hypertension; Z79.899 Other long term (current) drug therapy; Z88.8 Allergy status to other drugs, medicaments and biological substances
CPT/HCPCS: 36430

== ENCOUNTER 2018-02-01 10:42 | Outpatient (CLI) | payer MEDICARE, BC, OTHER ==
[~2018-02-01 10:42] MED LIST changes: -FAMOTIDINE IV BAG 20 MG in APPROPRIATE DILUENT 1 EA IV; +diphenhydrAMINE 25 MG CAP PO
[2018-02-01] MEDS: diphenhydrAMINE 25 MG CAP PO (10:51)
[2018-02-01] MEDS: ACETAMINOPHEN TAB 650MG DOSE (2X325MG) PO (10:52)
[2018-02-01] MEDS: FAMOTIDINE/NS 20 MG/50 ML BAG (S0028) IV (10:52)
[2018-02-01] MEDS: dexameTHASONE 20 MG/5 ML VIAL (J1100) IV (11:32)
[2018-02-01 11:44] LABS: IMMEDIATE SPIN CROSSMATCH 1
[2018-02-01 13:20] LABS: IMMEDIATE SPIN CROSSMATCH 1 1
== END 2018-02-01 15:45 | disposition home or self-care (01) ==
LOC: M INFU 10:42
DX: C92.00 Acute myeloblastic leukemia, not having achieved remission (principal); D46.9 Myelodysplastic syndrome, unspecified; D69.6 Thrombocytopenia, unspecified; R20.2 Paresthesia of skin; E78.00 Pure hypercholesterolemia, unspecified; I10 Essential (primary) hypertension; M12.9 Arthropathy, unspecified; Z79.899 Other long term (current) drug therapy; Z88.8 Allergy status to other drugs, medicaments and biological substances
CPT/HCPCS: 36430

== ENCOUNTER 2018-02-05 08:51 | Outpatient (CLI) | payer MEDICARE, BC, OTHER ==
[2018-02-05] MEDS ORDERED: SODIUM CHLORIDE 0.9% 1000ML IV (09:00)
[2018-02-05] MEDS: ACETAMINOPHEN TAB 650MG DOSE (2X325MG) PO (09:27)
[2018-02-05] MEDS: diphenhydrAMINE 25 MG CAP PO (09:27)
[2018-02-05] MEDS: dexameTHASONE 20 MG/5 ML VIAL (J1100) IV (09:53)
[2018-02-05] MEDS: FAMOTIDINE IV BAG 20 MG in APPROPRIATE DILUENT 1 EA IV (09:54)
[2018-02-05 10:03] LABS: IMMEDIATE SPIN CROSSMATCH 1
[2018-02-05 12:40] LABS: IMMEDIATE SPIN CROSSMATCH 1 1
== END 2018-02-05 15:15 | disposition home or self-care (01) ==
LOC: M INFU 08:51
DX: D46.9 Myelodysplastic syndrome, unspecified (principal); D69.6 Thrombocytopenia, unspecified; E78.00 Pure hypercholesterolemia, unspecified; R20.2 Paresthesia of skin; Z79.899 Other long term (current) drug therapy; Z88.8 Allergy status to other drugs, medicaments and biological substances
CPT/HCPCS: 36430

== ENCOUNTER 2018-02-08 09:57 | Outpatient (CLI) | payer MEDICARE, BC, OTHER ==
[2018-02-08] MEDS ORDERED: FAMOTIDINE/NS 20 MG/50 ML BAG (S0028) As Ordered (10:23)
[2018-02-08] MEDS ORDERED: diphenhydrAMINE 25 MG CAP PO (10:30)
[2018-02-08] MEDS: FAMOTIDINE/NS 20 MG/50 ML BAG (S0028) IV (10:30)
[2018-02-08] MEDS: dexameTHASONE 20 MG/5 ML VIAL (J1100) IV (11:00)
[2018-02-08] MEDS: diphenhydrAMINE 25 MG CAP PO (11:00)
[2018-02-08] MEDS: ACETAMINOPHEN TAB 650MG DOSE (2X325MG) PO (11:00)
[2018-02-08 11:14] LABS: IMMEDIATE SPIN CROSSMATCH 1
[2018-02-08] MEDS ORDERED: dexameTHASONE 20 MG/5 ML VIAL (J1100) IV (12:15)
[2018-02-08] MEDS ORDERED: FAMOTIDINE IV BAG 20 MG in APPROPRIATE DILUENT 1 EA IV (12:15)
[2018-02-08 13:03] LABS: IMMEDIATE SPIN CROSSMATCH 1 2
== END 2018-02-08 17:15 | disposition home or self-care (01) ==
LOC: M INFU 09:57
DX: D64.9 Anemia, unspecified (principal); C92.00 Acute myeloblastic leukemia, not having achieved remission; D69.6 Thrombocytopenia, unspecified; Z88.8 Allergy status to other drugs, medicaments and biological substances
CPT/HCPCS: 36430

== ENCOUNTER 2018-02-12 07:45 | Outpatient (RCR) | payer MEDICARE, BC, OTHER ==
[2018-02-12 08:17] LABS: HEMATOCRIT 27.2 % (37.0-51.0); HEMOGLOBIN 8.5 g/dl (12.0-18.0); LYMPH # ONCOLOGY 1.1 10^3uL (0.6-4.1); MEAN CORPUSCULAR HGB CONC 31.3 g/dl (31.0-36.0); MEAN CORPUSCULAR VOLUME 92.8 fl (80.0-97.0); MID RANGE CELLS # 1.4 10^3/uL (0-1.8); MID RANGE CELLS % 5.3 % (0.1-24.0); NEUTROPHILS % 90.7 % (37.0-92.0); RED BLOOD COUNT 2.93 10^6/uL (4.2-6.3); RED CELL DISTRIBUTION WIDTH 14.1 % (11.5-14.5); WHITE BLOOD COUNT 26.5 10^3/uL (4.1-10.9)
[2018-02-12 08:21] LABS: PLATELET COUNT, AUTOMATED < 9 10^3/uL (140-440)
[2018-02-14 10:36] LABS: HEMATOCRIT 27.9 % (37.0-51.0); HEMOGLOBIN 8.9 g/dl (12.0-18.0); LYMPH # ONCOLOGY 1.2 10^3uL (0.6-4.1); LYMPH % 4.6 % (10.0-58.5); MEAN CORPUSCULAR HEMOGLOBIN 29.7 pg (26.0-32.0); MEAN CORPUSCULAR HGB CONC 31.9 g/dl (31.0-36.0); MEAN CORPUSCULAR VOLUME 93.1 fl (80.0-97.0); MID RANGE CELLS # 1.6 10^3/uL (0-1.8); NEUTROPHILS % 89.4 % (37.0-92.0); RED CELL DISTRIBUTION WIDTH 15.1 % (11.5-14.5); WHITE BLOOD COUNT 26.8 10^3/uL (4.1-10.9)
[2018-02-14 10:37] LABS: PLATELET COUNT, AUTOMATED < 9 10^3/uL (140-440)
[2018-02-14 13:12] LABS: IMMEDIATE SPIN CROSSMATCH 1
[2018-02-16 10:52] LABS: HEMATOCRIT 27.8 % (37.0-51.0); LYMPH # ONCOLOGY 1.2 10^3uL (0.6-4.1); LYMPH % 4.4 % (10.0-58.5); MEAN CORPUSCULAR HGB CONC 32.4 g/dl (31.0-36.0); MEAN CORPUSCULAR VOLUME 92.7 fl (80.0-97.0); MID RANGE CELLS # 1.8 10^3/uL (0-1.8); MID RANGE CELLS % 6.6 % (0.1-24.0); NEUTROPHILS # 23.9 10^3/uL (2.0-7.8); RED CELL DISTRIBUTION WIDTH 14.5 % (11.5-14.5); WHITE BLOOD COUNT 26.8 10^3/uL (4.1-10.9)
[2018-02-16 10:53] LABS: PLATELET COUNT, AUTOMATED < 9 10^3/uL (140-440)
[2018-02-19 09:32] LABS: HEMATOCRIT 26.6 % (37.0-51.0); HEMOGLOBIN 8.6 g/dl (12.0-18.0); LYMPH # ONCOLOGY 0.8 10^3uL (0.6-4.1); LYMPH % 4.5 % (10.0-58.5); MEAN CORPUSCULAR HEMOGLOBIN 29.8 pg (26.0-32.0); MEAN CORPUSCULAR HGB CONC 32.3 g/dl (31.0-36.0); MEAN CORPUSCULAR VOLUME 92.1 fl (80.0-97.0); MEAN PLATELET VOLUME 6.4 fl (0.0-50.0); MID RANGE CELLS # 0.8 10^3/uL (0-1.8); MID RANGE CELLS % 4.7 % (0.1-24.0); NEUTROPHILS # 15.7 10^3/uL (2.0-7.8); NEUTROPHILS % 90.8 % (37.0-92.0); RED BLOOD COUNT 2.89 10^6/uL (4.2-6.3); RED CELL DISTRIBUTION WIDTH 15.3 % (11.5-14.5); WHITE BLOOD COUNT 17.3 10^3/uL (4.1-10.9)
[2018-02-19 09:33] LABS: PLATELET COUNT, AUTOMATED 14 10^3/uL (140-440)
[2018-02-21 12:15] LABS: HEMATOCRIT 27.6 % (37.0-51.0); LYMPH # ONCOLOGY 1.3 10^3uL (0.6-4.1); LYMPH % 8.2 % (10.0-58.5); MEAN CORPUSCULAR HEMOGLOBIN 30.3 pg (26.0-32.0); MEAN CORPUSCULAR HGB CONC 32.6 g/dl (31.0-36.0); MID RANGE CELLS # 0.8 10^3/uL (0-1.8); MID RANGE CELLS % 5.4 % (0.1-24.0); NEUTROPHILS # 13.6 10^3/uL (2.0-7.8); NEUTROPHILS % 86.4 % (37.0-92.0); RED BLOOD COUNT 2.97 10^6/uL (4.2-6.3); RED CELL DISTRIBUTION WIDTH 14.8 % (11.5-14.5); WHITE BLOOD COUNT 15.7 10^3/uL (4.1-10.9)
[2018-02-21 12:16] LABS: PLATELET COUNT, AUTOMATED < 9 10^3/uL (140-440)
[2018-02-21 15:05] LABS: IMMEDIATE SPIN CROSSMATCH 1
[2018-02-23 10:34] LABS: HEMATOCRIT 27.8 % (37.0-51.0); LYMPH # ONCOLOGY 0.9 10^3uL (0.6-4.1); LYMPH % 4.2 % (10.0-58.5); MEAN CORPUSCULAR HEMOGLOBIN 29.9 pg (26.0-32.0); MEAN CORPUSCULAR HGB CONC 32.4 g/dl (31.0-36.0); MEAN CORPUSCULAR VOLUME 92.5 fl (80.0-97.0); MEAN PLATELET VOLUME 7.4 fl (0.0-50.0); MID RANGE CELLS # 1.2 10^3/uL (0-1.8); MID RANGE CELLS % 5.4 % (0.1-24.0); NEUTROPHILS # 19.5 10^3/uL (2.0-7.8); NEUTROPHILS % 90.4 % (37.0-92.0); RED BLOOD COUNT 3.01 10^6/uL (4.2-6.3); RED CELL DISTRIBUTION WIDTH 14.3 % (11.5-14.5); WHITE BLOOD COUNT 21.6 10^3/uL (4.1-10.9)
[2018-02-23 10:35] LABS: PLATELET COUNT, AUTOMATED 15 10^3/uL (140-440)
[2018-02-23] MEDS: EPOETIN 40,000 UNIT/ML SC (12:15)
[2018-02-23] MEDS: EPOETIN 20,000 UNIT/ML SC (12:15)
[2018-02-26 09:24] LABS: HEMATOCRIT 28.2 % (37.0-51.0); HEMOGLOBIN 9.1 g/dl (12.0-18.0); LYMPH # ONCOLOGY 0.8 10^3uL (0.6-4.1); LYMPH % 4.1 % (10.0-58.5); MEAN CORPUSCULAR HEMOGLOBIN 29.8 pg (26.0-32.0); MEAN CORPUSCULAR HGB CONC 32.3 g/dl (31.0-36.0); MEAN CORPUSCULAR VOLUME 92.6 fl (80.0-97.0); MEAN PLATELET VOLUME 6.8 fl (0.0-50.0); MID RANGE CELLS # 0.9 10^3/uL (0-1.8); MID RANGE CELLS % 4.5 % (0.1-24.0); NEUTROPHILS # 17.9 10^3/uL (2.0-7.8); NEUTROPHILS % 91.4 % (37.0-92.0); RED BLOOD COUNT 3.05 10^6/uL (4.2-6.3); RED CELL DISTRIBUTION WIDTH 14.2 % (11.5-14.5); WHITE BLOOD COUNT 19.6 10^3/uL (4.1-10.9)
[2018-02-26 09:26] LABS: PLATELET COUNT, AUTOMATED 17 10^3/uL (140-440)
[2018-02-26 09:48] LABS: ALBUMIN 2.5 GM/DL (3.5-5.2); ALKALINE PHOSPHATASE 86 U/L (44-147); ALT ONCOLOGY 135 U/L (5-30); AST ONCOLOGY 60 U/L (7-31); BLOOD UREA NITROGEN 35 MG/DL (6-20); CALCIUM LEVEL 8.5 MG/DL (8.5-10.2); CARBON DIOXIDE LEVEL 23.8 MEQ/L (23-31); CHLORIDE LEVEL 98 MMOL/L (98-107); CREATININE FOR GFR 1.68 MG/DL (0.90-1.30); GLOMERULAR FILTRATION RATE 42.4 (>42); GLUCOSE, FASTING 189 MG/DL (70-105); POTASSIUM SERUM 3.3 MMOL/L (3.5-5.1); SODIUM LEVEL 128.9 MMOL/L (136-145); TOTAL PROTEIN 5.5 GM/DL (6.4-8.3)
[2018-02-26] MEDS: PROCHLORPERAZINE 5 MG TAB (S0183) PO (10:30)
[2018-02-26] MEDS: [UNRECOGNIZED DRUG - OTHER] IV (12:10)
[2018-02-26 16:53] LABS: IMMEDIATE SPIN CROSSMATCH 1 1
[2018-02-27] MEDS: PROCHLORPERAZINE 5 MG TAB (S0183) PO (10:00)
[2018-02-27] MEDS: diphenhydrAMINE 25 MG CAP PO (10:37)
[2018-02-27] MEDS: ACETAMINOPHEN TAB 650MG DOSE (2X325MG) PO (10:39)
[2018-02-27] MEDS: FAMOTIDINE 20 MG TAB PO (10:39)
[2018-02-27] MEDS: dexameTHASONE 4 MG/ML 1ML VIAL (J1100) IV (10:40)
[2018-02-27] MEDS: [UNRECOGNIZED DRUG - OTHER] IV (10:55)
[2018-02-28 09:41] LABS: HEMATOCRIT 28.6 % (37.0-51.0); HEMOGLOBIN 9.1 g/dl (12.0-18.0); LYMPH # ONCOLOGY 0.8 10^3uL (0.6-4.1); LYMPH % 3.3 % (10.0-58.5); MEAN CORPUSCULAR HEMOGLOBIN 29.6 pg (26.0-32.0); MEAN CORPUSCULAR HGB CONC 31.8 g/dl (31.0-36.0); MEAN CORPUSCULAR VOLUME 93.2 fl (80.0-97.0); MID RANGE CELLS # 0.9 10^3/uL (0-1.8); MID RANGE CELLS % 3.9 % (0.1-24.0); NEUTROPHILS # 22.5 10^3/uL (2.0-7.8); NEUTROPHILS % 92.8 % (37.0-92.0); RED BLOOD COUNT 3.07 10^6/uL (4.2-6.3); RED CELL DISTRIBUTION WIDTH 13.1 % (11.5-14.5); WHITE BLOOD COUNT 24.2 10^3/uL (4.1-10.9)
[2018-02-28 09:42] LABS: PLATELET COUNT, AUTOMATED < 9 10^3/uL (140-440)
[2018-02-28] MEDS: PROCHLORPERAZINE 5 MG TAB (S0183) PO (10:19)
[2018-02-28] MEDS: [UNRECOGNIZED DRUG - OTHER] IV (11:51)
[2018-02-28 14:20] LABS: IMMEDIATE SPIN CROSSMATCH 1
[2018-03-01] MEDS: PROCHLORPERAZINE 5 MG TAB (S0183) PO (10:45)
[2018-03-01] MEDS: [UNRECOGNIZED DRUG - OTHER] IV (11:46)
[2018-03-02 10:01] LABS: HEMATOCRIT 29.2 % (37.0-51.0); HEMOGLOBIN 9.3 g/dl (12.0-18.0); LYMPH # ONCOLOGY 1.1 10^3uL (0.6-4.1); LYMPH % 3.7 % (10.0-58.5); MEAN CORPUSCULAR HEMOGLOBIN 29.2 pg (26.0-32.0); MEAN CORPUSCULAR HGB CONC 31.8 g/dl (31.0-36.0); MEAN CORPUSCULAR VOLUME 91.8 fl (80.0-97.0); MEAN PLATELET VOLUME 7.6 fl (0.0-50.0); MID RANGE CELLS # 1.4 10^3/uL (0-1.8); MID RANGE CELLS % 4.5 % (0.1-24.0); NEUTROPHILS # 27.7 10^3/uL (2.0-7.8); NEUTROPHILS % 91.8 % (37.0-92.0); RED BLOOD COUNT 3.18 10^6/uL (4.2-6.3); RED CELL DISTRIBUTION WIDTH 13.8 % (11.5-14.5); WHITE BLOOD COUNT 30.2 10^3/uL (4.1-10.9)
[2018-03-02 10:02] LABS: PLATELET COUNT, AUTOMATED 15 10^3/uL (140-440)
[2018-03-02] MEDS: PROCHLORPERAZINE 5 MG TAB (S0183) PO (11:14)
[2018-03-02] MEDS: [UNRECOGNIZED DRUG - OTHER] IV (12:16)
[2018-03-02] MEDS: EPOETIN 40,000 UNIT/ML SC (13:23)
[2018-03-02] MEDS: EPOETIN 20,000 UNIT/ML SC (13:23)
[2018-03-02 14:26] LABS: IMMEDIATE SPIN CROSSMATCH 1 1
[2018-03-02 16:57] LABS: IMMEDIATE SPIN CROSSMATCH 1
== END 2018-03-07 23:40 | disposition expired ==
LOC: M ONCM 07:45
DX: D46.9 Myelodysplastic syndrome, unspecified (principal); Z79.899 Other long term (current) drug therapy
CPT/HCPCS: 85027

== ENCOUNTER 2018-02-12 09:29 | Outpatient (CLI) | payer MEDICARE, BC, OTHER ==
[2018-02-12] MEDS: dexameTHASONE 20 MG/5 ML VIAL (J1100) IV ×2 (09:42)
[2018-02-12] MEDS: ACETAMINOPHEN TAB 650MG DOSE (2X325MG) PO ×2 (09:42)
[2018-02-12] MEDS: diphenhydrAMINE 25 MG CAP PO ×2 (09:43)
[2018-02-12] MEDS: FAMOTIDINE IV BAG 20 MG in APPROPRIATE DILUENT 1 EA IV (09:54)
[2018-02-12 10:35] LABS: IMMEDIATE SPIN CROSSMATCH 1
[2018-02-12 12:08] LABS: IMMEDIATE SPIN CROSSMATCH 1 1
== END 2018-02-12 14:30 | disposition home or self-care (01) ==
LOC: M INFU 09:29
DX: D64.9 Anemia, unspecified (principal); D69.6 Thrombocytopenia, unspecified; Z88.8 Allergy status to other drugs, medicaments and biological substances
CPT/HCPCS: 36430

== ENCOUNTER 2018-02-14 12:12 | Outpatient (CLI) | payer MEDICARE, BC, OTHER ==
[2018-02-14] MEDS: ACETAMINOPHEN TAB 650MG DOSE (2X325MG) PO ×2 (12:42)
[2018-02-14] MEDS: dexameTHASONE 20 MG/5 ML VIAL (J1100) IV ×2 (12:42)
[2018-02-14] MEDS: diphenhydrAMINE 25 MG CAP PO ×2 (12:42)
[2018-02-14] MEDS: FAMOTIDINE 20 MG TAB PO ×2 (12:51)
== END 2018-02-14 15:15 | disposition home or self-care (01) ==
LOC: M INFU 12:12
DX: C92.00 Acute myeloblastic leukemia, not having achieved remission (principal); D69.6 Thrombocytopenia, unspecified; Z88.8 Allergy status to other drugs, medicaments and biological substances
CPT/HCPCS: 36430

== ENCOUNTER 2018-02-15 07:50 | Outpatient (CLI) | payer MEDICARE, BC, OTHER ==
[2018-02-15] MEDS ORDERED: FAMOTIDINE 20 MG TAB PO (11:00)
[2018-02-15] MEDS: diphenhydrAMINE 25 MG CAP PO (11:34)
[2018-02-15] MEDS: ACETAMINOPHEN TAB 650MG DOSE (2X325MG) PO (11:34)
[2018-02-15] MEDS: dexameTHASONE 20 MG/5 ML VIAL (J1100) IV (11:35)
[2018-02-15 12:25] LABS: IMMEDIATE SPIN CROSSMATCH 1 1
[2018-02-15] MEDS ORDERED: EPOETIN 40,000 UNIT 1ML VIAL (PROCRIT) (J0885 PER 1,000UNITS)(FOR ONCOLO) SC (12:30)
[2018-02-15] MEDS: EPOETIN SC (12:51)
== END 2018-02-15 15:00 | disposition home or self-care (01) ==
LOC: M INFU 07:50
DX: C92.00 Acute myeloblastic leukemia, not having achieved remission (principal); D46.9 Myelodysplastic syndrome, unspecified; Z88.8 Allergy status to other drugs, medicaments and biological substances
CPT/HCPCS: 36430

== ENCOUNTER 2018-02-16 11:11 | Outpatient (CLI) | payer MEDICARE, BC, OTHER ==
[2018-02-16] MEDS: ACETAMINOPHEN TAB 650MG DOSE (2X325MG) PO ×2 (12:18)
[2018-02-16] MEDS: FAMOTIDINE 20 MG TAB PO ×2 (12:18)
[2018-02-16] MEDS: diphenhydrAMINE 25 MG CAP PO ×2 (12:18)
[2018-02-16] MEDS: dexameTHASONE 20 MG/5 ML VIAL (J1100) IV ×2 (12:18)
[2018-02-16 12:40] LABS: IMMEDIATE SPIN CROSSMATCH 1
== END 2018-02-16 14:30 | disposition home or self-care (01) ==
LOC: M INFU 11:11
DX: C92.00 Acute myeloblastic leukemia, not having achieved remission (principal); C88.8 Other malignant immunoproliferative diseases
CPT/HCPCS: 36430

== ENCOUNTER 2018-02-19 11:55 | Outpatient (CLI) | payer MEDICARE, BC, OTHER ==
[2018-02-19] MEDS: FAMOTIDINE IV BAG 20 MG in APPROPRIATE DILUENT 1 EA IV (12:15)
[2018-02-19] MEDS: dexameTHASONE 20 MG/5 ML VIAL (J1100) IV ×2 (12:15)
[2018-02-19] MEDS: ACETAMINOPHEN TAB 650MG DOSE (2X325MG) PO ×2 (12:16)
[2018-02-19 12:47] LABS: IMMEDIATE SPIN CROSSMATCH 1
[2018-02-19 15:27] LABS: IMMEDIATE SPIN CROSSMATCH 1 2
== END 2018-02-19 19:30 | disposition home or self-care (01) ==
LOC: M INFU 11:55
DX: D46.9 Myelodysplastic syndrome, unspecified (principal); D64.9 Anemia, unspecified; C92.90 Myeloid leukemia, unspecified, not having achieved remission; E78.00 Pure hypercholesterolemia, unspecified; M12.9 Arthropathy, unspecified; D69.6 Thrombocytopenia, unspecified; Z79.899 Other long term (current) drug therapy; Z88.8 Allergy status to other drugs, medicaments and biological substances; Z87.442 Personal history of urinary calculi
CPT/HCPCS: 36430

== ENCOUNTER 2018-02-21 13:13 | Outpatient (CLI) | payer MEDICARE, BC, OTHER ==
[2018-02-21] MEDS: FAMOTIDINE IV BAG 20 MG in APPROPRIATE DILUENT 1 EA IV (13:57)
[2018-02-21] MEDS: diphenhydrAMINE 25 MG CAP PO ×2 (13:58)
[2018-02-21] MEDS: ACETAMINOPHEN TAB 650MG DOSE (2X325MG) PO ×2 (13:58)
[2018-02-21] MEDS ORDERED: dexameTHASONE 4 MG/ML 1ML VIAL (J1100) IV ×2 (14:00)
[2018-02-21] MEDS: dexameTHASONE 20 MG/5 ML VIAL (J1100) IV ×2 (14:29)
== END 2018-02-21 17:10 | disposition home or self-care (01) ==
LOC: M INFU 13:13
DX: C92.00 Acute myeloblastic leukemia, not having achieved remission (principal); D69.6 Thrombocytopenia, unspecified; D64.9 Anemia, unspecified
CPT/HCPCS: 36430

== ENCOUNTER 2018-02-23 12:26 | Outpatient (CLI) | payer MEDICARE, BC, OTHER ==
[2018-02-23] MEDS: ACETAMINOPHEN TAB 650MG DOSE (2X325MG) PO ×2 (12:37)
[2018-02-23] MEDS: FAMOTIDINE/NS 20 MG/50 ML BAG (S0028) IV ×2 (12:37)
[2018-02-23] MEDS: diphenhydrAMINE 25 MG CAP PO ×2 (12:37)
[2018-02-23] MEDS: FAMOTIDINE IV BAG 20 MG in APPROPRIATE DILUENT 1 EA IV (12:37)
[2018-02-23] MEDS: dexameTHASONE 20 MG/5 ML VIAL (J1100) IV ×2 (12:38)
[2018-02-23 13:17] LABS: IMMEDIATE SPIN CROSSMATCH 1
[2018-02-23 14:39] LABS: IMMEDIATE SPIN CROSSMATCH 1 1
== END 2018-02-23 17:15 | disposition home or self-care (01) ==
LOC: M INFU 12:26
DX: C92.00 Acute myeloblastic leukemia, not having achieved remission (principal); D69.6 Thrombocytopenia, unspecified; Z88.8 Allergy status to other drugs, medicaments and biological substances; D64.9 Anemia, unspecified
CPT/HCPCS: 36430

== ENCOUNTER 2018-02-26 13:41 | Outpatient (CLI) | payer MEDICARE, BC, OTHER ==
[2018-02-26] MEDS: dexameTHASONE 20 MG/5 ML VIAL (J1100) IV ×2 (12:45)
[2018-02-26] MEDS: FAMOTIDINE/NS 20 MG/50 ML BAG (S0028) IV ×2 (13:48)
[2018-02-26] MEDS: diphenhydrAMINE 25 MG CAP PO ×2 (13:48)
[2018-02-26] MEDS: ACETAMINOPHEN TAB 650MG DOSE (2X325MG) PO ×2 (13:48)
[2018-02-26 14:21] LABS: IMMEDIATE SPIN CROSSMATCH 1
== END 2018-02-26 19:00 | disposition home or self-care (01) ==
LOC: M INFU 13:41
DX: C92.00 Acute myeloblastic leukemia, not having achieved remission (principal); D69.6 Thrombocytopenia, unspecified; Z88.8 Allergy status to other drugs, medicaments and biological substances
CPT/HCPCS: 36430

== ENCOUNTER 2018-02-28 13:26 | Outpatient (CLI) | payer MEDICARE, BC, OTHER ==
[2018-02-28] MEDS: FAMOTIDINE IV BAG 20 MG in APPROPRIATE DILUENT 1 EA IV (13:42)
[2018-02-28] MEDS: dexameTHASONE 20 MG/5 ML VIAL (J1100) IV ×2 (13:43)
[2018-02-28] MEDS: diphenhydrAMINE 25 MG CAP PO ×2 (13:43)
[2018-02-28] MEDS: ACETAMINOPHEN TAB 650MG DOSE (2X325MG) PO ×2 (13:43)
[2018-02-28 16:22] LABS: IMMEDIATE SPIN CROSSMATCH 1 1
== END 2018-02-28 18:15 | disposition home or self-care (01) ==
LOC: M INFU 13:26
DX: C92.00 Acute myeloblastic leukemia, not having achieved remission (principal); D69.6 Thrombocytopenia, unspecified; Z79.899 Other long term (current) drug therapy; Z88.8 Allergy status to other drugs, medicaments and biological substances
CPT/HCPCS: 36430

== ENCOUNTER → 2018-03-01 | Outpatient (CLI) | payer MEDICARE, BC, OTHER | LOC: M RAD 13:37 | DX: R22.32 Localized swelling, mass and lump, left upper limb (principal) | CPT/HCPCS: 76882; J0894 ==